=== PATIENT | female | born 1970 | race Caucasian/White ===

== ENCOUNTER 2020-08-15 07:24 | Outpatient (REF) | payer OTHER, SELFPAY ==
--- NOTE | 2020-08-15 07:29 | CT_ITS ---
EXAMINATION: CT CHEST WITHOUT CONTRAST CLINICAL INFORMATION: Abnormal lung finding. COMPARISON: No previous exam available for comparison. TECHNIQUE: Multidetector volumetric CT imaging of the chest was done. Axial MIP volume rendering provided. Sagittal and coronal reformatted images were obtained. This CT examination was performed using dose optimization techniques as appropriate, variously including the following: *Automated exposure control *Adjustment of mA and/or kV according to patient size (this includes techniques or standardized protocols for targeted exams where dose is matched to indication/reason for exam; i.e. extremities or head) *Use of iterative reconstruction technique DLP: 175 mGy-cm. FINDINGS: FURNACE TAPPER: Unremarkable. LUNGS: The lungs are well expanded and clear of acute pneumonic process. There are scattered pulmonary nodules. A 3 mm pulmonary nodule left upper lobe adjacent to the descending thoracic aorta on axial image 189/7, a 6 mm nodule right lower lobe superior segment image 323/7 and postsurgical changes along the right middle lobe, likely from wedge resection or lobectomy. MEDIASTINUM: The thyroid lobes are symmetrical and normal. The central trachea and bronchi are widely patent. The heart size and great vessels are normal caliber. There is no pericardial effusion. No abnormal mediastinal lymph nodes seen. There is no pleural effusion. PLEURA: There is no pleural effusion. No pleural mass or thickening. AXILLA: The axilla is unremarkable. There is a right breast prostheses in place. UPPER ABDOMEN: Visualized liver, spleen, pancreas and bilateral adrenal glands are unremarkable. OSSEOUS STRUCTURES: No lytic or sclerotic process seen. CT/CT chest wo IV con IMPRESSION: Small calcified bilateral pulmonary nodules as described above, most likely granulomas disease. No noncalcified nodules seen. Right middle lobe postsurgical changes. Right breast augmentation, likely following resection.
== END 2020-08-15 07:25 | disposition home or self-care (01) ==
LOC: HO.CT 07:24
PROVIDERS: Visit Provider Hospitalist
DX: R91.8 Other nonspecific abnormal finding of lung field (principal)
CPT/HCPCS: 71250

== ENCOUNTER → 2020-09-08 08:25 | Outpatient (BNVA) | payer OTHER, SELFPAY | PROVIDERS: PCP Internal Medicine; Referring Provider Internal Medicine; Visit Provider Hospitalist | DX: Z76.89 Persons encountering health services in other specified circumstances (principal) ==

== ENCOUNTER → 2021-08-30 09:55 | Outpatient (BNVA) | payer OTHER, SELFPAY | PROVIDERS: PCP Internal Medicine; Visit Provider Hospitalist ==

== ENCOUNTER 2021-09-13 07:29 | Outpatient (REF) | payer OTHER, SELFPAY ==
--- NOTE | ~2021-09-13 | CT_ITS ---
EXAMINATION: CT CHEST WITHOUT CONTRAST CLINICAL INFORMATION: Pulmonary nodules COMPARISON: Previous chest CT July 2020 TECHNIQUE: Multidetector volumetric CT imaging of the chest was done. Axial MIP volume rendering provided. Sagittal and coronal reformatted images were obtained. This CT examination was performed using dose optimization techniques as appropriate, variously including the following: *Automated exposure control *Adjustment of mA and/or kV according to patient size (this includes techniques or standardized protocols for targeted exams where dose is matched to indication/reason for exam; i.e. extremities or head) *Use of iterative reconstruction technique DLP: 178 mGy-cm FINDINGS: LUNGS: There are postsurgical changes with surgical max seen in the right middle lobe. There is a 3 mm calcified left upper lobe nodule adjacent to the resting aorta axial image 178 series 5 that is stable. There is a 6 mm calcified right lower lobe nodule axial image 331 series 5 that is stable. No new pulmonary nodule is seen. MEDIASTINUM: The mediastinum is normal. PLEURA: There is no pleural effusion. No pleural mass or thickening. AXILLA: There are no enlarged axillary lymph nodes. There are surgical clips in the right lateral breast and a right breast implant. UPPER ABDOMEN: There is cortical thinning and peripheral calcification in the medial upper pole of the right kidney. OSSEOUS STRUCTURES: Unremarkable. CT/CT chest wo IV con IMPRESSION: Stable postsurgical changes to the right middle lobe. Stable calcified pulmonary nodules probably representing calcified granulomas. Fleischner guidelines were followed.
== END 2021-09-13 07:30 | disposition home or self-care (01) ==
LOC: HO.CT 07:29
PROVIDERS: Visit Provider Hospitalist
DX: R07.89 Other chest pain (principal); R91.8 Other nonspecific abnormal finding of lung field; E86.9 Volume depletion, unspecified
CPT/HCPCS: 71250

== ENCOUNTER → 2021-10-17 08:15 | Outpatient (REF) | payer OTHER, SELFPAY ==
--- NOTE | 2021-10-17 08:20 | ECG_ITS ---
Test Reason : htn Blood Pressure : / mmHG Vent. Rate : 055 BPM Atrial Rate : 055 BPM P-R Int : 146 ms QRS Dur : 086 ms QT Int : 426 ms P-R-T Axes : 059 019 028 degrees QTc Int : 407 ms Sinus bradycardia Otherwise normal ECG No previous ECGs available Referred By: Edu Hunt Electronically Signed By:Balaji Mike
--- NOTE | 2021-10-17 08:20 | CA_ITS ---
Transthoracic Echocardiogram Patient (Last, First, Middle): June Tirado, Gender: Female Date of : 1970 Age: 51 Procedure Date: 10/17/2021 Procedure Type: Transthoracic Echocardiogram Location: OP Height: 170.18 cm Weight: 99.79 kg BSA: 2.11 m2 Heart Rate: bpm BP: 139 / 90 mmHg Driver Sales: MASSIEL Referring MD: Edu Hunt MD [place]: Daniel Mendoza MD Symptoms: I27.20 - Pulmonary hypertension, unspecified Study Quality: Technically Difficult/Contrast ECG Rhythm: Sinus Conclusions: - Essentially normal study Findings Procedure Information Contrast agent, definity, is being given per protocol without apparent complications. Left Ventricle Normal left ventricular size, thickness, and systolic function. The visually estimated ejection fraction is between 55-60%. Spectral Doppler is indicative of a normal filling pattern. Right Ventricle Normal right ventricular cavity size and systolic function. Atria Both atria are normal in size. Interatrial shunt cannot be excluded. Aortic Valve The aortic valve structure and function is likely normal. There is no aortic valve stenosis. There is no aortic valve regurgitation. Mitral Valve Likely normal mitral valve structure and function. There is trace mitral valve regurgitation. There is no mitral valve stenosis. Pulmonic Valve The pulmonic valve was not well visualized. Tricuspid Valve Likely normal tricuspid valve structure and function. There is trace tricuspid valve regurgitation. The right ventricular systolic pressure is normal. The right ventricular systolic pressure is 23 mmHg. Normal right atrial pressure. There is no evidence of pulmonary hypertension. Great Vessels All visible segments of the aorta are normal in size. The pulmonary artery was not well visualized. Venous The inferior vena cava is normal in size and collapses greater than 50% with inspiration. Pericardium/Pleural There is no evidence of pericardial effusion. Prior Study Comparison No prior study available for comparison. Measurements 2D Linear Measurements IVSd: 0.73 0.6-0.9/0.6-1.0 cm LVIDd: 5.23 3.9-5.3/4.2-5.9 cm LVIDd Index: 2.48 2.4-3.2/2.2-3.1 cm/m2 LVIDs: 3.47 2.0-3.6 cm LVPWd: 0.72 0.7-1.1 cm Ao Root: 3.10 2.1-3.5 cm LA Diam: 4.10 2.7-3.8/3.0-4.0 cm LAIDs Index: 1.94 1.5-2.3 cm/m2 LV Mass: 160.94 67-162/88-224 g LV Mass Index: 76.28 43-95/49-115 g/m2 LVOT Diam: 2.00 3.0+(-)1.3 cm Mitral Valve MV Pk E: 0.59 MV PK A: 0.61 MV Decel Time: 301.00 E/A: 1.00 E'Lateral: 11.60 E'Medial: 7.07 E/E' Med: 8.40 E/E' Lat: 5.10 PHT: 88.00 MVA PHT: 2.50 Decel Sullivan: 1.97 Aortic Valve AoV Pk Deejay: 1.45 AoV Mn Deejay: 1.07 AoV VTI: 0.31 AoV Pk Grad: 8.00 Aov Mn Grad: 5.00 WYATT Cont.VTI: 2.18 LVOT LVOT Pk Deejay: 1.04 LVOT Mn Deejay: 0.67 LVOT VTI: 0.22 LVOT Pk Grad: 4.00 LVOT Mn Grad: 2.00 LVOT Diam: 2.00 LVOT Area: 3.14 Diastolic Function MV Pk E: 0.59 MV Pk A: 0.61 E/A: 1.00 E'Medial: 7.07 E/E' Med: 8.40 E' Laterial: 11.60 E/E' Lat: 5.10 Right Ventricle TAPSE (mm): 17.40 TVS' Deejay: 10.10 Tricuspid Valve TR Pk Deejay: 1.93 TR Pk Grad: 15.00 RA Press: 8.00 RVSP: 23.00 Great Vessels Aorta Ao Root-2D: 3.10 2.0-3.7 cm Ao Asc: 3.00 2.1-3.4 cm Ao Arch: 2.90 Updated in Other Vendor System with Status of Final Daniel Mendoza MD electronically signed on 10/17/2021 5:28:21 PM with status of Final
== END ==
LOC: HO.CARD 08:15
PROVIDERS: Visit Provider Hospitalist
DX: R07.89 Other chest pain (principal); I27.20 Pulmonary hypertension, unspecified; R06.00 Dyspnea, unspecified
CPT/HCPCS: 93005; 93306; Q9957

== ENCOUNTER 2022-02-23 15:17 | Outpatient (REF) | payer OTHER, SELFPAY ==
--- NOTE | ~2022-02-23 | CT_ITS ---
EXAMINATION: CT CHEST WITHOUT CONTRAST CLINICAL INFORMATION: Follow-up nodules. COMPARISON: Pre chest CT, most recent 09/10. TECHNIQUE: Multidetector volumetric CT imaging of the chest was done. Axial MIP volume rendering provided. Sagittal and coronal reformatted images were obtained. This CT examination was performed using dose optimization techniques as appropriate, variously including the following: *Automated exposure control *Adjustment of mA and/or kV according to patient size (this includes techniques or standardized protocols for targeted exams where dose is matched to indication/reason for exam; i.e. extremities or head) *Use of iterative reconstruction technique DLP: 181 mGy-cm. FINDINGS: LUNGS: There are stable postsurgical changes to the right middle lobe. There is soft tissue thickening along the surgical suture line that is stable. Small pulmonary nodules are stable. Largest pulmonary nodule is a 5 mm calcified right lower lobe nodule axial image 36 series 3. No new pulmonary nodules are seen. There is a small lung cysts in the right lower lobe. No endobronchial or endotracheal lesion is seen. MEDIASTINUM: The thyroid gland is normal. There are no enlarged hilar or mediastinal lymph nodes. The heart size is normal. Aortic size is normal. No pericardial effusion. PLEURA: There is no pleural effusion. No pleural mass or thickening. AXILLA: There is a right breast implant. No chest wall mass or enlarged axillary lymph nodes are seen. UPPER ABDOMEN: There is a small calcification in the peripheral upper pole of the right kidney. Images through the upper abdomen are otherwise unremarkable. OSSEOUS STRUCTURES: There are mild degenerative changes of the spine. CT/CT chest wo IV con IMPRESSION: Stable post surgical change RML. Stable pulmonary nodules. Fleischner guidelines were followed.
== END 2022-02-23 15:18 | disposition home or self-care (01) ==
LOC: HO.CT 15:17
PROVIDERS: PCP Internal Medicine; Visit Provider Hospitalist
DX: R07.89 Other chest pain (principal); R91.8 Other nonspecific abnormal finding of lung field
CPT/HCPCS: 71250

== ENCOUNTER → 2022-02-26 15:49 | Outpatient (BNVA) | payer OTHER, SELFPAY | PROVIDERS: PCP Internal Medicine; Visit Provider Hospitalist | DX: R07.89 Other chest pain (principal); R91.8 Other nonspecific abnormal finding of lung field; D86.9 Sarcoidosis, unspecified; I27.20 Pulmonary hypertension, unspecified ==

== ENCOUNTER 2023-08-01 10:51 | Outpatient (AMB) | payer OTHER, SELFPAY ==
--- NOTE | 2023-08-01 11:03 | A.OFFVIS_ITS ---
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 She is now cancer free. She was diagnosed with breast cancer is status post surgery and now is recovering very well from her surgeries. She is not using hormonal therapy. She has had history of blood clots. She did have symptoms consistent with sleep apnea. Therefore we had o rdered a sleep study. This sleep study was very limited unfortunately because malfunction device. Also the strap was bothering her recent surgery of her breast. So therefore there was also affecting her sleep. Therefore the sleep study was not helpful. At this point she is feeling better. She is not feeling as tired in the morning. She still snoring at night time. However. We did talk about positional changes sleeping elevated receiving her side. She can also try rinsing her nose at night time. The patient does have symptoms consistent with upper airway nasal congestion. [id number] severity. Resulting in a cough. Only mild. Does not require medications at this time. She is currently getting allergy shots. In regard of her pulmonary nodules. Her last CT scan of the chest to assess the pulmonary nodules and granulomas was back in August 2018. She is time to be scheduled now for a CAT scan August 2019. . We did review her CT scan demonstrating the pulmonary nodules from 2018. She should get another CT scan in August 2020. Patient also describes some congestion in her right lower lung zone area. Primary when she lays flat. Denies any reflux symptoms. She does have a wedge pillow that she had using the past but stopped using because was bothering her. She will re-attempt to use it all may be having breaks to elevate the head of bed to minimize micro aspirations that can lead to some congestion irritation to the right lower lobe area. Will do some blood work at this time. The patient should have an x-ray if she is no better for the chest discomfort. If it symptoms persist an her laboratory data and x-ray data is not helpful we can consider performing the CT scan sooner than August 2020. 09/08/2020. The patient is here for pulmonary follow-up visit. Overall she is doing well from a respiratory status. She denies any coughing or shortness of breath. We did look at her CT scan of the chest demonstrating stable postoperative changes in bilateral calcified pulmonary nodules. Her major issue right now is significant pelvic discomfort. She is being worked up for it. 08/30/2021 the patient is here for pulmonary follow-up visit. Since we last spoke she has been complaining of increasing dyspnea on exertion. Today on the walk from the parking lot to the office she started developing some chest heaviness and burning sensation in the substernal chest area. In regards of her history of breast cancer the patient has continued to have serial imaging studies and she has been stable. Unfortunately, she was not able to use the hormonal therapy due to history of blood clots. We did review her last CT scan of the chest that was done back in August 2020. Patient does have multiple pulmonary nodules in addition to postoperative changes. The patient did have a biopsy-proven diagnosis of sarcoidosis. In view of her chest discomfort and shortness of breath also need to consider cardiac sarcoid. Therefore, will request additional blood work and will repeat her CT scan in view of her worsening symptoms And abnormal findings. The patient also has significant cardiovascular risk factors with hypertension and diabetes. Very reasonable for her to undergo a stress test. 02/27/2022 the patient is here for a pulmonary follow-up visit. Overall she is doing well from a respiratory status. However, she has been complaining of epigastric and also right upper quadrant discomfort. The discomfort seems to come and go. Typically not related to eating. The pain is about moderate severity. It does not radiate. Seems to be affecting her breathing and she does have the pain she was evaluated by her primary care doctor and recommended she start PPI. She has yet to start. I did encourage her to do so. She also underwent a CT scan of the chest to address her pulmonary nodules. It appears that the pulmonary nodules have been stable compared to her previous CT scan which is very reassuring. She also has stable surgical changes that also appeared to be stable. Her esophagus is intact in the stomach area is intact. Could not really appreciate the gallbladder because of the limited abdominal windows. The patient is high risk for gallbladder disease. Appears to be having colicky discomfort. If the patient does not improved on the reflux diet along with the PPI I did provide with some blood work for her to have done to assess her pancreas and also her liver function. 08/01/2023 the patient is here for a sick visit apparently she was in her usual state health until suddenly when she developed left upper quadrant / lower chest area pain. Seen to gravity to the side. The pain was significant enough to take her to the ER. Denied any shortness of breath although with a history of blood clots she did have blood work including a D-dimer that was negative. She also had a CT scan of the abdomen while she was in there. The patient appeared to have chronic lung changes in view of her surgery on the right side with some atelectatic areas and postsurgical changes. The left lower lobe area was intact. The patient did have what appeared to be hypodense lesions on the spleen. The spleen was not large. Was concerned that this could be metastatic disease. However, she was discharged and she did have an MRI of the liver and the hypodensities were confirmed to be benign cyst. The patient is reassured but she still has discomfort pruritic and nature when taking a deep breath. Rtsg-xh-vteurnkt severity. It seems to be getting a little better. She denied any other rashes or any musculoskeletal discomfort. She was concerned about potentially active sarcoid with a history. However, her lung windows have not changed the patient does not have any evidence of splenomegaly that usually results when somebody has extrapulmonary sarcoid in the spleen. She does have a GI doctor she does have follow-up in a couple weeks. Therefore, they can assess this discomfort further. In the meantime will going to request blood work to assess for connective tissue diseases that could explain pleuritic chest discomfort. since this discomfort has been getting better I encouraged her to continue with current medications. [facility] Medical History (Updated 08/01/23 @ 20:25 by Edu Hunt MD) Dyspnea Breast cancer Chest discomfort Sarcoidosis Pulmonary nodules Social History (Updated 08/30/21 @ 10:03 by JATIN Molina) Patient Tobacco Use Status: Former Tobacco user Tobacco use type: Cigarette Years Smoked: 10 years Review of Systems Const Denies fatigue, Denies malaise, Denies night sweats and Denies weight loss ENT Denies change in voice, Denies lip swelling, Denies mouth pain, Reports nasal congestion, Reports nasal discharge and Denies tongue swelling Card Reports chest pain, Reports chest pain with activity and Denies dyspnea on exer tion Resp Denies dyspnea on exertion GI Reports abdominal pain Musc Denies no additional complaints Neuro Denies Neuro-related abnormal movements Psych Denies no additional complaints Endo Denies fatigue Dae/Lymph Denies easy bleeding and Denies lymphadenopathy Aller/Immun Denies lip swelling and Denies tongue swelling Physical Exam Vital Signs: Last Vital Signs Pulse 68 08/01/23 11:07 BP 128/70 08/01/23 11:07 Pulse Ox 96 08/01/23 11:07 Oxygen Delivery Method Room Air 08/01/23 11:07 BMI result Body Mass Index 34.1 Const General: alert Neck Neck: Yes normal visual inspection, Yes full ROM and Yes no lymphadenopathy Chest Chest palpation & inspection: normal inspection of the chest Resp Auscultation: clear to auscultation bilaterally Cardio Rate: regular rate Rhythm: regular rhythm Heart sounds: S1 normal heart sound present and S2 normal heart sound present GI Palpation (GI): Soft to palpation, Tenderness to palpation present (GI) in the epigastrum and in the LUQ; not at McBurney's point, not periumbilically, M urphy's sign negative and with no rebound tenderness and no splenomegaly Auscultation: normal bowel sounds Skin General skin exam: rashes and/or lesions noted Assessment & Plan Assessment & Plan (1) Pulmonary nodules: Code(s): R91.8 - Other nonspecific abnormal finding of lung field Plan: Nodules are stable. Again calcified nodules more consistent with the history of sarcoidosis. (2) Sarcoidosis: Code(s): D86.9 - Sarcoidosis, unspecified Plan: No evidence of any active disease Should have yearly eye exams (3) Breast cancer: Code(s): C50.919 - Malignant neoplasm of unspecified site of unspecified female breast Qualifiers: Breast location: unspecified site of breast Estrogen receptor status: p ositive Patient sex: female Laterality: right Qualified Code(s): C50.911 - Malignant neoplasm of unspecified site of right female breast; Z17.0 - Estrogen receptor positive status [ER+] (4) Dyspnea: Code(s): R06.00 - Dyspnea, unspecified Qualifiers: Dyspnea type: dyspnea on exertion Qualified Code(s): R06.00 - Dyspnea, unspecified (5) LUQ pain: Code(s): R10.12 - Left upper quadrant pain Plan No evidence of active sarcoidosis F/U with GI regarding abdominal pain requesting labs including ddimer refluc diet consider PPI F/U 4-6 months Orders: Orders Complete Blood Count Auto Diff Today D86.9 - Sarcoidosis, unspecified, R06.00 - Dyspnea, unspecified, R07.89 - Other chest pain Basic Metabolic Panel Today D86.9 - Sarcoidosis, unspecified, R06.00 - Dyspnea, unspecified, R07.89 - Other chest pain Angiotensin Converting Enzyme Today D86.9 - Sarcoidosis, unspecified, R06.00 - Dyspnea, unspecified, R07.89 - Other chest pain D Dimer High Sensitivity Today D86.9 - Sarcoidosis, unspecified, R06.00 - Dyspnea, unspecified, R07.89 - Other chest pain Juancarlos-Sanon Virus Profile Today D86.9 - Sarcoidosis, unspecified, R06.00 - Dyspnea, unspecified, R07.89 - Other chest pain Cyclic Citrullinated Peptide Today D86.9 - Sarcoidosis, unspecified, R06.00 - Dyspnea, unspecified, R07.89 - Other chest pain T Spot TB Today D86.9 - Sarcoidosis, unspecified, R06.00 - Dyspnea, unspecified, R07.89 - Other chest pain WIL Reflex Titer and Pattern Today D86.9 - Sarcoidosis, unspecified, R06.00 - Dyspnea, unspecified, R07.89 - Other chest pain Erythrocyte Sedimentation Rate Today D86.9 - Sarcoidosis, unspecified, R06.00 - Dyspnea, unspecified, R07.89 - Other chest pain Coding Level of Care Code Est Pt Level 4 (77705) Diagnoses Pulmonary nodules R91.8 Sarcoidosis D86.9 Malignant neoplasm of right breast in female, estrogen receptor positive, unspecified site of breast C50.911; Z17.0 Breast location: unspecified site of breast Estrogen receptor status: positive Patient sex: female Laterality: right Dyspnea on exertion R06.00 Dyspnea type: dyspnea on exertion LUQ pain R10.12 Time Spent (min) 25
[2023-08-01 11:07] VITALS: BP 128/70; PULSE 68; O2SAT 96; BMI 34.1
== END 2023-08-01 11:56 | disposition home or self-care (01) ==
PROVIDERS: PCP Internal Medicine; Visit Provider Hospitalist
DX: R91.8 Other nonspecific abnormal finding of lung field (principal); D86.9 Sarcoidosis, unspecified; C50.911 Malignant neoplasm of unspecified site of right female breast; Z17.0 Estrogen receptor positive status [ER+]; R06.00 Dyspnea, unspecified; R10.12 Left upper quadrant pain
CPT/HCPCS: 99214

== ENCOUNTER → 2023-08-01 10:51 | Outpatient (BNVA) | payer OTHER, SELFPAY | PROVIDERS: PCP Internal Medicine; Visit Provider Hospitalist ==

== ENCOUNTER 2023-12-18 07:58 | Outpatient (REF) | payer OTHER, SELFPAY ==
--- NOTE | ~2023-12-18 | XR_ITS ---
EXAMINATION: XR CHEST CLINICAL INFORMATION: Dyspnea. COMPARISON: CT chest 02/23/2022. TECHNIQUE: 2 views of the chest were obtained. FINDINGS: Normal appearance of the cardiomediastinal silhouette. Redemonstration of postoperative changes in the right middle lobe. Mild central peribronchial cuffing. No focal consolidation or pleural effusion. No pulmonary edema. Subcentimeter pulmonary nodules described on prior CT are too small to be characterize by radiograph. No acute osseous findings. XR/XR chest 2V IMPRESSION: Findings suggest mild small airways disease without focal consolidation or pleural effusion.
== END 2023-12-18 07:59 | disposition home or self-care (01) ==
LOC: HO.XRAY 07:58
PROVIDERS: PCP Internal Medicine; Visit Provider Hospitalist
DX: R06.00 Dyspnea, unspecified (principal); R91.8 Other nonspecific abnormal finding of lung field
CPT/HCPCS: 71046

== ENCOUNTER 2023-12-18 07:58 | Outpatient (AMB) | payer OTHER, SELFPAY ==
[2023-12-18 08:31] VITALS: BP 128/78; PULSE 65; O2SAT 96; BMI 34.1
--- NOTE | 2023-12-18 08:31 | A.OFFVIS_ITS ---
Intake Vital Signs 12/18/23 08:31 Height 5 ft 7 in Weight 218 lb BMI 34.1 BP 128/78 Blood Pressure Location Lt brachial Position Sitting Pulse 65 Pulse Source Pulse Oximeter Pulse Oximetry (%) 96 Oxygen Delivery Method Room Air Intake Visit Reasons: Chest Xray/Follow Up Coin Box Inspector Required: No Allergies Sulfa Drugs Allergy (Severe, Uncoded 12/18/23 08:34) Rash HPI HPI Comments History of Present Illness Details The patient is a 53 y/o woman with a history of sarcoidosis in addition to pulmonary nodules and breat cancer. She is now cancer free. She was diagnosed with breast cancer is status post surgery and now is recovering very well from her surgeries. She is not using hormonal therapy. She has had history of blood clots. She did have symptoms consistent with sleep apnea. Therefore we had ordered a sleep study. This sleep study was very limited unfortunately because malfunction device. Also the strap was bothering her recent surgery of her breast. So therefore there was also affecting her sleep. Therefore the sleep study was not helpful. At this point she is feeling better. She is not feeling as tired in the morning. She still snoring at night time. However. We did talk about positional changes sleeping elevated receiving her side. She can also try rinsing her nose at night time. The patient does have symptoms consistent with upper airway nasal congestion. Ozmd-[id number] severity. Resulting in a cough. Only mild. Does not require medications at this time. She is currently getting allergy shots. In regard of her pulmonary nodules. Her last CT scan of the chest to assess the pulmonary nodules and granulomas was back in August 2018. She is time to be scheduled now for a CAT scan August 2019. . We did review her CT scan demonstrating the pulmonary nodules from 2017. She should get another CT scan in August 2020. Patient also describes some congestion in her right lower lung zone area. Primary when she lays flat. Denies any reflux symptoms. She does have a wedge pillow that she had using the past but stopped using because was bothering her. She will re-attempt to use it all may be having breaks to elevate the head of bed to minimize micro aspirations that can lead to some congestion irritation to the right lower lobe area. Will do some blood work at this time. The patient should have an x-ray if she is no better for the chest discomfort. If it symptoms persist an her laboratory data and x-ray data is not helpful we can consider performing the CT scan sooner than August 2020. 09/08/2020. The patient is here for pulmonary follow-up visit. Overall she is doing well from a respiratory status. She denies any coughing or shortness of breath. We did look at her CT scan of the chest demonstrating stable postoperative changes in bilateral calcified pulmonary nodules. Her major issue right now is significant pelvic discomfort. She is being worked up for it. 08/30/2021 the patient is here for pulmonary follow-up visit. Since we last spoke she has been complaining of increasing dyspnea on exertion. Today on the walk from the parking lot to the office she started developing some chest heaviness and burning sensation in the substernal chest area. In regards of her history of breast cancer the patient has continued to have serial imaging studies and she has been stable. Unfortunately, she was not able to use the hormonal therapy due to history of blood clots. We did review her last CT scan of the chest that was done back in August 2020. Patient does have multiple pulmonary nodules in addition to postoperative changes. The patient did have a biopsy-proven diagnosis of sarcoidosis. In view of her chest discomfort and shortness of breath also need to consider cardiac sarcoid. Therefore, will request additional blood work and will repeat her CT scan in view of her worsening symptoms And abnormal findings. The patient also has significant cardiovascular risk factors with hypertension and diabetes. Very reasonable for her to undergo a stress test. 02/27/2022 the patient is here for a pulmonary follow-up visit. Overall she is doing well from a respiratory status. However, she has been complaining of epigastric and also right upper quadrant discomfort. The discomfort seems to come and go. Typically not related to eating. The pain is about moderate severity. It does not radiate. Seems to be affecting her breathing and she does have the pain she was evaluated by her primary care doctor and recommended she start PPI. She has yet to start. I did encourage her to do so. She also underwent a CT scan of the chest to address her pulmonary nodules. It appears that the pulmonary nodules have been stable compared to her previous CT scan which is very reassuring. She also has stable surgical changes that also appeared to be stable. Her esophagus is intact in the stomach area is intact. Could not really appreciate the gallbladder because of the limited abdominal windows. The patient is high risk for gallbladder disease. Appears to be having colicky discomfort. If the patient does not improved on the reflux diet along with the PPI I did provide with some blood work for her to have done to assess her pancreas and also her liver function. 08/01/2023 the patient is here for a sick visit apparently she was in her usual state health until suddenly when she developed left upper quadrant / lower chest area pain. Seen to gravity to the side. The pain was significant enough to take her to the ER. Denied any shortness of breath although with a history of blood clots she did have blood work including a D-dimer that was negative. She also had a CT scan of the abdomen while she was in there. The patient appeared to have chronic lung changes in view of her surgery on the right side with some atelectatic areas and postsurgical changes. The left lower lobe area was intact. The patient did have what appeared to be hypodense lesions on the spleen. The spleen was not large. Was concerned that this could be metastatic disease. However, she was discharged and she did have an MRI of the liver and the hypodensities were confirmed to be benign cyst. The patient is reassured but she still has discomfort pruritic and nature when taking a deep breath. Lnkp-vs-[id number] severity. It seems to be getting a little better. She denied any other rashes or any musculoskeletal discomfort. She was concerned about potentially active sarcoid with a history. However, her lung windows have not changed the patient does not have any evidence of splenomegaly that usually results when somebody has extrapulmonary sarcoid in the spleen. She does have a GI doctor she does have follow-up in a couple weeks. Therefore, they can assess this discomfort further. In the meantime will going to request blood work to assess for connective tissue diseases that could explain pleuritic chest discomfort. since this discomfort has been getting better I encouraged her to continue with current medications. 12/18/2023 the patient is here for a pulmonary follow-up visit. The patient overall has been doing okay. Continues to have some chest pressure sensations in addition to cough and shortness of breath. Oaqp-em-yqlotlgj severity. She did have a chest x-ray today without any significant findings. Her last CT scan of the chest was back in February 2022 demonstrating multiple pulmonary nodules. The patient does have a history sarcoidosis and also history of breast cancer. More recently she did undergo an MRI to further address the new splenic cyst. Explained to the patient that I not believe that the cysts are related to any sarcoid. Could be related to the potential mononucleosis infection that she had. This point based on her ongoing symptoms, nondi agnostic chest x-ray and history of cancer go ahead and repeat her CT scan at this time. also to note, the patient is having worsening snorring. Her is having to sleep elsewhere. She has significant daytime drowsiness with EPWORTH score 11/24. We will reques a home sleep study at this time. [facility] Medical History (Updated 12/18/23 @ 18:24 by Edu Hunt MD) Splenic cyst, acquired Dyspnea Breast cancer Chest discomfort Sarcoidosis Pulmonary nodules Social History (System 08/06/23 @ 13:54 by Angela Burch) Patient Tobacco Use Status: Former Tobacco user Tobacco use type: Cigarette Years Smoked: 10 years Review of Systems Const Reports daytime sleepiness, Denies fatigue, Denies malaise, Denies night sweats, Reports snoring and Denies weight loss ENT Denies change in voice, Denies lip swelling, Denies mouth pain, Reports nasal congestion, Reports nasal discharge and Denies tongue swelling Card Reports chest pain, Reports chest pain with activity and Reports dyspnea on exertion Resp Reports cough, Reports dyspnea on exertion and Reports snoring GI Denies abdominal pain Musc Denies no additional complaints Neuro Denies Neuro-related abnormal movements Psych Denies no additional complaints Endo Denies fatigue Dae/Lymph Denies easy bleeding and Denies lymphadenopathy Aller/Immun Denies lip swelling and Denies tongue swelling Physical Exam Vital Signs: Last Vital Signs Pulse 65 12/18/23 08:31 BP 128/78 12/18/23 08:31 Pulse Ox 96 12/18/23 08:31 Oxygen Delivery Method Room Air 12/18/23 08:31 BMI result Body Mass Index 34.1 Const General: alert Neck Neck: Yes normal visual inspection, Yes full ROM and Yes no lymphadenopathy Chest Chest palpation & inspection: normal inspection of the chest Resp Effort & Inspection: normal respiratory effort Auscultation: clear to auscultation bilaterally Cardio Rate: regular rate Rhythm: regular rhythm Heart sounds: S1 normal heart sound present and S2 normal heart sound present GI Palpation (GI): Soft to palpation Auscultation: normal bowel sounds Skin General skin exam: rashes and/or lesions noted Assessment & Plan Assessment & Plan (1) Pulmonary nodules: Code(s): R91.8 - Other nonspecific abnormal finding of lung field Plan: Nodules are stable. Again calcified nodules more consistent with the history of sarcoidosis. (2) Sarcoidosis: Code(s): D86.9 - Sarcoidosis, unspecified Plan: No evidence of any active disease Should have yearly eye exams (3) Breast cancer: Code(s): C50.919 - Malignant neoplasm of unspecified site of unspecified female breast (4) Dyspnea: Code(s): R06.00 - Dyspnea, unspecified (5) Splenic cyst, acquired: Comment: ?related to mononucleosis. Code(s): D73.4 - Cyst of spleen (6) ADRIENNE (obstructive sleep apnea): Code(s): G47.33 - Obstructive sleep apnea (adult) (pediatric) (7) Chest discomfort: Code(s): R07.89 - Other chest pain (8) Dyspnea: Code(s): R06.00 - Dyspnea, unspecified Qualifiers: Dyspnea type: dyspnea on exertion Qualified Code(s): R06.00 - Dyspnea, unspecified (9) Pulmonary nodules: Code(s): R91.8 - Other nonspecific abnormal finding of lung field Plan CT chest at this time, CXR non diagnostic. Has symptoms and h/o cancer and pulmonary nodules. Home PSG F/U 3-4 months Orders: Orders RT home sleep study Today G47.33 - Obstructive sleep apnea (adult) (pediatric) CT chest wo IV con Today C50.919 - Malignant neoplasm of unspecified site of unspecified female breast, R07.89 - Other chest pain, R91.8 - Other nonspecific abnormal finding of lung field Coding Level of Care Code Est Pt Level 4 (43165) Diagnoses Pulmonary nodules R91.8 Sarcoidosis D86.9 Breast cancer C50.919 Dyspnea R06.00 Splenic cyst, acquired D73.4 ADRIENNE (obstructive sleep apnea) G47.33 Chest discomfort R07.89 Time Spent (min) 18
== END 2023-12-18 09:00 | disposition home or self-care (01) ==
PROVIDERS: PCP Internal Medicine; Visit Provider Hospitalist
DX: R91.8 Other nonspecific abnormal finding of lung field (principal); D86.9 Sarcoidosis, unspecified; C50.919 Malignant neoplasm of unspecified site of unspecified female breast; R06.00 Dyspnea, unspecified; D73.4 Cyst of spleen; G47.33 Obstructive sleep apnea (adult) (pediatric); R07.89 Other chest pain
CPT/HCPCS: 99214

== ENCOUNTER → 2024-02-20 09:02 | Outpatient (REF) | payer OTHER, SELFPAY | LOC: HO.SL 09:02 | PROVIDERS: PCP Internal Medicine; Visit Provider Hospitalist | DX: G47.33 Obstructive sleep apnea (adult) (pediatric) (principal) | CPT/HCPCS: 95806 ==

== ENCOUNTER → 2024-02-20 09:08 | Outpatient (BNV) | payer OTHER, SELFPAY | PROVIDERS: PCP Internal Medicine; Visit Provider Internal Medicine | DX: G47.33 Obstructive sleep apnea (adult) (pediatric) (principal) | CPT/HCPCS: 95806 ==

== ENCOUNTER 2024-03-18 08:45 | Outpatient (AMB) | payer OTHER, SELFPAY ==
[2024-03-18 08:46] VITALS: BP 137/84; PULSE 77; O2SAT 98; BMI 35.6
--- NOTE | 2024-03-18 08:46 | A.OFFVIS_ITS ---
Vital Signs 03/18/24 08:46 Height 5 ft 7 in Weight 227 lb 1.218 oz BMI 35.6 BP 137/84 Blood Pressure Location Lt brachial Position Sitting Pulse 77 Pulse Source Doppler Pulse Oximetry (%) 98 Oxygen Delivery Method Room Air Intake Visit Reasons: Dyspnea Allergies Sulfa Drugs Allergy (Severe, Uncoded 12/18/23 08:34) Rash HPI Comments Details: The patient is a 54 y/o woman with a history of sarcoidosis in addition to pulmonary nodules and breat cancer. She is now cancer free. She was diagnosed with breast cancer is status post surgery and now is recovering very well from her surgeries. She is not using hormonal therapy. She has had history of blood clots. She did have symptoms consistent with sleep apnea. Therefore we had ordered a sleep study. This sleep study was very limited unfortunately because malfunction device. Also the strap was bothering her recent surgery of her breast. So therefore there was also affecting her sleep. Therefore the sleep study was not helpful. At this point she is feeling better. She is not feeling as tired in the morning. She still snoring at night time. However. We did talk about positional changes sleeping elevated receiving her side. She can also try rinsing her nose at night time. The patient does have symptoms consistent with upper airway nasal congestion. Hpen-rf-sazqfkag severity. Resulting in a cough. Only mild. Does not require medications at this time. She is currently getting allergy shots. In regard of her pulmonary nodules. Her last CT scan of the chest to assess the pulmonary nodules and granulomas was back in August 2018. She is time to be scheduled now for a CAT scan August 2019. . We did review her CT scan demonstrating the pulmonary nodules from 2017. She should get another CT scan in August 2020. Patient also describes some congestion in her right lower lung zone area. Primary when she lays flat. Denies any reflux symptoms. She does have a wedge pillow that she had using the past but stopped using because was bothering her. She will re-attempt to use it all may be having breaks to elevate the head of bed to minimize micro aspirations that can lead to some congestion irritation to the right lower lobe area. Will do some blood work at this time. The patient should have an x-ray if she is no better for the chest discomfort. If it symptoms persist an her laboratory data and x-ray data is not helpful we can consider performing the CT scan sooner than August 2020. 12/18/2023 the patient is here for a pulmonary follow-up visit. The patient overall has been doing okay. Continues to have some chest pressure sensations in addition to cough and shortness of breath. Xrfl-rd-[id number] severity. She did have a chest x-ray today without any significant findings. Her last CT scan of the chest was back in February 2022 demonstrating multiple pulmonary nodules. The patient does have a history sarcoidosis and also history of breast cancer. More recently she did undergo an MRI to further address the new splenic cyst. Explained to the patient that I not believe that the cysts are related to any sarcoid. Could be related to the potential mononucleosis infection that she had. This point based on her ongoing symptoms, nondiagnostic chest x-ray and history of cancer go ahead and repeat her CT scan at this time. also to note, the patient is having worsening snorring. Her is having to sleep elsewhere. She has significant daytime drowsiness with EPWORTH score 11/24. We will reques a home sleep study at this time. 03/18/2024 the patient is here for a pulmonary follow-up visit. The patient overall has been doing fairly well from a respiratory status. She does continue to have snoring. Her does complain about her snoring. She did have a home sleep study which we personally reviewed. Her AHI is 5 and is mainly when she lays on her back. We did talk about positional therapy at this time. The patient may also benefit from an oral mandibular device to help with snoring. She also had a CT scan of the chest which we personally reviewed from [facility]. Looks like the patient has stable nodular densities and postoperative changes consistent with her old sarcoid. No evidence of any sarcoid activity. She still has the lesions in the spleen that are still being evaluated. She is following closely with GI. Does not appear to be related to sarcoidosis at this time. The patient is having significant weight gain which she has concerned about an upset about. Mainly because she has severe back pain. She is seen multiple specialists although has not been able to get some relief. Will go ahead and send her to our pain management clinic to see if she can be re-evaluated. [facility] Medical History (Updated 03/18/24 @ 21:28 by Edu Hunt MD) Back pain Splenic cyst, acquired Dyspnea Breast cancer Chest discomfort Sarcoidosis Pulmonary nodules Social History Patient Tobacco Use Status: Former Tobacco user Tobacco use type: Cigarette Years Smoked: 10 years Review of Systems Const Reports daytime sleepiness, Denies fatigue, Denies malaise, Denies night sweats, Reports snoring and Denies weight loss ENT Denies change in voice, Denies lip swelling, Denies mouth pain, Reports nasal congestion, Reports nasal discharge and Denies tongue swelling Card Reports chest pain, Reports chest pain with activity and Reports dyspnea on exertion Resp Reports cough, Reports dyspnea on exertion and Reports snoring GI Denies abdominal pain Musc Denies no additional complaints Neuro Denies Neuro-related abnormal movements Psych Denies no additional complaints Endo Denies fatigue Dae/Lymph Denies easy bleeding and Denies lymphadenopathy Aller/Immun Denies lip swelling and Denies tongue swelling Physical Exam Vital Signs: Last Vital Signs Pulse 77 03/18/24 08:46 BP 137/84 03/18/24 08:46 Pulse Ox 98 03/18/24 08:46 Oxygen Delivery Method Room Air 03/18/24 08:46 BMI result Body Mass Index 35.6 Const General: alert Neck Neck: Yes normal visual inspection, Yes full ROM and Yes no lymphadenopathy Chest Chest palpation & inspection: normal inspection of the chest Resp Effort & Inspection: normal respiratory effort Auscultation: clear to auscultation bilaterally Cardio Rate: regular rate Rhythm: regular rhythm Heart sounds: S1 normal heart sound present and S2 normal heart sound present GI Palpation (GI): Soft to palpation Auscultation: normal bowel sounds Skin General skin exam: rashes and/or lesions noted Assessment & Plan Assessment & Plan (1) Sarcoidosis: Comment: No evidence of active disease Code(s): D86.9 - Sarcoidosis, unspecified Category: Medical (2) ADRIENNE (obstructive sleep apnea): Comment: mild AHI 5 Code(s): G47.33 - Obstructive sleep apnea (adult) (pediatric) Category: Medical (3) Back pain: Code(s): M54.9 - Dorsalgia, unspecified Category: Medical Qualifiers: Back pain location: back pain in unspecified location Chronicity: chronic Back pain laterality: unspecified Qualified Code(s): M54.9 - Dorsalgia, unspecified; G89.29 - Other chronic pain (4) Splenic cyst, acquired: Comment: ?related to mononucleosis. Code(s): D73.4 - Cyst of spleen Category: Medical Plan positional sleep therapy consider mandibular device for worsening snorring pain referral, limited by her back pain F/U 10-12 months Orders: Referrals Pain Management Referral M54.9 - Dorsalgia, unspecified Coding Level of Care Code Est Pt Level 4 (69850) Diagnoses Sarcoidosis D86.9 ADRIENNE (obstructive sleep apnea) G47.33 Chronic back pain, unspecified back location, unspecified back pain laterality M54.9; G89.29 Back pain location: back pain in unspecified location Chronicity: chronic Back pain laterality: unspecified Splenic cyst, acquired D73.4 Time Spent (min) 17
== END 2024-03-18 09:16 | disposition home or self-care (01) ==
PROVIDERS: PCP Internal Medicine; Visit Provider Hospitalist
DX: D86.9 Sarcoidosis, unspecified (principal); G47.33 Obstructive sleep apnea (adult) (pediatric); M54.9 Dorsalgia, unspecified; G89.29 Other chronic pain; D73.4 Cyst of spleen
CPT/HCPCS: 99214

== ENCOUNTER → 2024-03-18 08:45 | Outpatient (BNVA) | payer OTHER, SELFPAY | PROVIDERS: PCP Internal Medicine; Visit Provider Hospitalist | DX: G47.33 Obstructive sleep apnea (adult) (pediatric) (principal) ==

== ENCOUNTER 2024-03-30 08:08 | Outpatient (AMB) | payer OTHER, SELFPAY ==
--- NOTE | 2024-03-30 08:09 | MHC.OFFVIS ---
Vital Signs 03/30/24 08:11 Height 5 ft 7 in Weight 227 lb BMI 35.5 BP 128/82 Blood Pressure Location Lt brachial Position Sitting Respiration 14 Pulse 75 Pulse Source Pulse Oximeter Pulse Oximetry (%) 97 Oxygen Delivery Method Room Air Intake Visit Reasons: back pain Allergies Sulfa Drugs Allergy (Severe, Uncoded 03/30/24 08:12) Rash Medication List - Last Reconciled 03/30/24 by Dolly Schmitt LPN losartan 25 mg PO DAILY sitagliptin phosphate (Januvia) 25 mg PO DAILY valacyclovir mg PO HPI HPI back pain: Details: 54-year-old female presenting with low back pain for evaluation and management, referred to us by Dr. Hunt. Patient reports she has had low back pain for about 4 years now which has been progressively worsening. Several years ago she had a fall and she landed on her coccyx which left her with tailbone pain. At the time she underwent an MRI of her tailbone and an evaluation with Dr. Smith at [facility] who deemed her a nonsurgical for tailbone pain. Over the years her pain has progressed from the tailbone area upwards towards her lumbar spine. It is not described as an aching stabbing low back pain that limits her from daily activities. It is described as 8 to 10/10 in intensity, variable over the course of the day, but worse with movements. Heat, cold applications make it feel better as to oral medications. She is unable to sleep normally or do her daily activities. She has not been able to continue with her usual exercise routine and walks, which has resulted in significant weight gain over the past 1 year, which has in turn worsened her back pain and made her mood worse. She is also unable to tolerate long drives. 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 She has completed more than 30 sessions of formal physical therapy, the last 1 at [facility] last year. She has not undergone any imaging of her lumbar spine. She takes ibuprofen as needed as well as extra-strength Tylenol. Medical history is notable for breast cancer status post mastectomy and sarcoidosis. [facility] Medical History (Updated 03/18/24 @ 21:28 by Edu Hunt MD) Back pain Splenic cyst, acquired Dyspnea Breast cancer Chest discomfort Sarcoidosis Pulmonary nodules Social History (Reviewed 03/18/24 @ 08:51 by HENOK Mckeon Patient Tobacco Use Status: Former Tobacco user Tobacco use type: Cigarette Years Smoked: 10 years Physical Exam Vital Signs: Last Vital Signs Pulse 75 03/30/24 08:11 Resp 14 03/30/24 08:11 BP 128/82 03/30/24 08:11 Pulse Ox 97 03/30/24 08:11 Oxygen Delivery Method Room Air 03/30/24 08:11 BMI result Body Mass Index 35.5 On exam today: Appears afebrile. Alert and oriented. Mood and affect appropriate. Follows and participates in conversation appropriately. Respiratory effort is unlabored. Able to transition from sit to stand unassisted. Ambulates with bilaterally normal heel strike and toe off. Able to stand and walk on toes and heels. Lumbar range of motion is limited. Lumbar extension reproduces pain in the lower back. Facet loading is positive bilaterally. Anterior column loading reproduces discomfort in the lumbar spine. Results Reviewed Results Reviewed: No imaging is available for review today. Assessment & Plan Assessment & Plan (1) Back pain: Code(s): M54.9 - Dorsalgia, unspecified Category: Medical Qualifiers: Back pain laterality: unspecified Back pain location: back pain in unspecified location Chronicity: chronic Qualified Code(s): M54.9 - Dorsalgia, unspecified; G89.29 - Other chronic pain Plan Patient has had longstanding low back pain that has not responded to conservative measures including extensive physical therapy and oral acetaminophen and NSAIDs. I will send her for an MRI of the lumbar spine. She will return to clinic to review the MRI. We will consider interventions based on MRI results and her physical exam at the time. Differential diagnosis at this time includes lumbar spondylosis and vertebral endplate degeneration associated with lumbar disc degeneration. Orders: Orders MR lumbar spine wo con Today G89.29 - Other chronic pain, M54.9 - Dorsalgia, unspecified Coding Level of Care Code New Pt Level 4 (47563) Diagnoses Chronic back pain, unspecified back location, unspecified back pain laterality M54.9; G89.29 Back pain laterality: unspecified Back pain location: back pain in unspecified location Chronicity: chronic
[2024-03-30 08:11] VITALS: BP 128/82; PULSE 75; RESP 14; O2SAT 97; BMI 35.5
== END 2024-03-30 08:54 | disposition home or self-care (01) ==
LOC: HO.PMC 08:08
PROVIDERS: PCP Internal Medicine; Visit Provider Internal Medicine
DX: M54.9 Dorsalgia, unspecified (principal); G89.29 Other chronic pain
CPT/HCPCS: 99203

== ENCOUNTER → 2024-03-30 08:08 | Outpatient (BNVA) | payer OTHER, SELFPAY | PROVIDERS: PCP Internal Medicine; Visit Provider Internal Medicine ==

== ENCOUNTER 2024-04-17 10:30 | Outpatient (AMB) | payer OTHER, SELFPAY ==
--- NOTE | 2024-04-17 10:45 | MHC.OFFVIS ---
Intake Visit Reasons: Discuss MRI Results Allergies Sulfa Drugs Allergy (Severe, Uncoded 03/30/24 08:12) Rash HPI HPI Discuss MRI Results: Details: 54-year-old female who presents today to the office for a review of MRI scan result. She continues to have similar symptoms as before. [facility] Medical History (Updated 04/20/24 @ 09:07 by Grady Posada MD) Back pain Splenic cyst, acquired Dyspnea Breast cancer Chest discomfort Sarcoidosis Pulmonary nodules Social History Patient Tobacco Use Status: Former Tobacco user Tobacco use type: Cigarette Years Smoked: 10 years Review of Systems Const All systems reviewed & are unremarkable except as noted in HPI and below Physical Exam General: Appears afebrile. Alert and oriented. Mood and affect appropriate. Follows and participates in conversation appropriately. Respiratory effort is unlabored. Able to transition from sit to stand unassisted. Ambulates with bilaterally normal heel strike and toe off. Results Reviewed Results Reviewed: Assessment & Plan Assessment & Plan (1) Vertebrogenic low back pain: Code(s): M54.51 - Vertebrogenic low back pain Category: Medical Plan Modic changes at L5-S1 along with positive findings of pain with anterior column loading indicate a likely vertebrogenic source of her longstanding symptoms that have not responded to conservative measures including extensive physical therapy and oral anti-inflammatory medications. Recommend proceeding with basivertebral nerve ablation at L5 and S1 levels under general anesthesia. Justification for interventional therapy: Patient with average pain > 6/10 Patient has exhausted conservative therapy including physical therapy and oral medications. Scribed for Dr. Posada by Lee De Jesus medical insurance collector, on 04/17/2024. I, Dr. Posada, have personally reviewed and agree with the information entered by the scribe. Coding Level of Care Code Est Pt Level 4 (13580) Diagnoses Vertebrogenic low back pain M54.51
== END 2024-04-17 10:45 | disposition home or self-care (01) ==
PROVIDERS: PCP Internal Medicine; Visit Provider Internal Medicine
DX: M54.51 Vertebrogenic low back pain (principal)
CPT/HCPCS: 99214

== ENCOUNTER → 2024-04-17 10:30 | Outpatient (BNVA) | payer OTHER, SELFPAY | PROVIDERS: PCP Internal Medicine; Visit Provider Internal Medicine ==

== ENCOUNTER 2025-02-22 15:32 | Outpatient (AMB) | payer OTHER, SELFPAY ==
--- NOTE | 2025-02-22 15:33 | MHC.OFFVIS ---
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 She is now cancer free. She was diagnosed with breast cancer is status post surgery and now is recovering very well from her surgeries. She is not using hormonal therapy. She has had history of blood clots. She did have symptoms consistent with sleep apnea. Therefore we had ordered a sleep study. This sleep study was very limited unfortunately because malfunction device. Also the strap was bothering her recent surgery of her breast. So therefore there was also affecting her sleep. Therefore the sleep study was not helpful. At this point she is feeling better. She is not feeling as tired in the morning. She still snoring at night time. However. We did talk about positional changes sleeping elevated receiving her side. She can also try rinsing her nose at night time. The patient does have symptoms consistent with upper airway nasal congestion. [id number] severity. Resulting in a cough. Only mild. Does not require medications at this time. She is currently getting allergy shots. In regard of her pulmonary nodules. Her last CT scan of the chest to assess the pulmonary nodules and granulomas was back in August 2018. She is time to be scheduled now for a CAT scan August 2019. . We did review her CT scan demonstrating the pulmonary nodules from 2018. She should get another CT scan in August 2020. Patient also describes some congestion in her right lower lung zone area. Primary when she lays flat. Denies any reflux symptoms. She does have a wedge pillow that she had using the past but stopped using because was bothering her. She will re-attempt to use it all may be having breaks to elevate the head of bed to minimize micro aspirations that can lead to some congestion irritation to the right lower lobe area. Will do some blood work at this time. The patient should have an x-ray if she is no better for the chest discomfort. If it symptoms persist an her laboratory data and x-ray data is not helpful we can consider performing the CT scan sooner than August 2020. 12/18/2023 the patient is here for a pulmonary follow-up visit. The patient overall has been doing okay. Continues to have some chest pressure sensations in addition to cough and shortness of breath. [id number]-[id number] severity. She did have a chest x-ray today without any significant findings. Her last CT scan of the chest was back in February 2022 demonstrating multiple pulmonary nodules. The patient does have a history sarcoidosis and also history of breast cancer. More recently she did undergo an MRI to further address the new splenic cyst. Explained to the patient that I not believe that the cysts are related to any sarcoid. Could be related to the potential mononucleosis infection that she had. This point based on her ongoing symptoms, nondiagnostic chest x-ray and history of cancer go ahead and repeat her CT scan at this time. also to note, the patient is having worsening snorring. Her is having to sleep elsewhere. She has significant daytime drowsiness with EPWORTH score 11/24. We will reques a home sleep study at this time. 03/18/2024 the patient is here for a pulmonary follow-up visit. The patient overall has been doing fairly well from a respiratory status. She does continue to have snoring. Her does complain about her snoring. She did have a home sleep study which we personally reviewed. Her AHI is 5 and is mainly when she lays on her back. We did talk about positional therapy at this time. The patient may also benefit from an oral mandibular device to help with snoring. She also had a CT scan of the chest which we personally reviewed from [facility]. Looks like the patient has stable nodular densities and postoperative changes consistent with her old sarcoid. No evidence of any sarcoid activity. She still has the lesions in the spleen that are still being evaluated. She is following closely with GI. Does not appear to be related to sarcoidosis at this time. The patient is having significant weight gain which she has concerned about an upset about. Mainly because she has severe back pain. She is seen multiple specialists although has not been able to get some relief. Will go ahead and send her to our pain management clinic to see if she can be re-evaluated. 02/22/2025 the patient is here for pulmonary follow-up visit. Overall the patient is doing fairly well. She has had significant weight loss on GLP1 for her diabetes. She does have issues with nausea no significant vomiting with it. In addition to that she continues to have some discomfort in the mid lower chest area. Close to decipher she feels like there is an induration there that sometimes can be very pronounced. From a breast cancer standpoint the patient is doing well. She is following closely with her doctors. No evidence of any recurrence that could be appreciated. We did review her last CT scan that was done back in December demonstrating pulmonary nodules. She also has there is due sarcoidosis. In view of the pulmonary nodules in the chest discomfort does ongoing and history of breast cancer will go ahead and request a repeat CAT scan at this point this year from the last 1. We can better address the question of any xyphoid related injury that could explain the discomfort that she had in the chest area. [facility] Medical History (Updated 04/20/24 @ 09:07 by Grady Posada MD) Back pain Splenic cyst, acquired Dyspnea Breast cancer Chest discomfort Sarcoidosis Pulmonary nodules Social History (Updated 02/22/25 @ 15:37 by Stefany Teague CMA) Alcohol intake: never Patient Tobacco Use Status: Former Tobacco user Tobacco use type: Cigarette Years Smoked: 10 years Review of Systems Const Denies chills, Denies fatigue, Denies fever(s), Denies weight gain and Reports weight loss ENT Denies dizziness, Denies lip swelling and Denies tongue swelling Card Reports chest pain, Denies leg edema, Denies lightheadedness, Denies palpitations, Denies dyspnea on exertion, Denies orthopnea and Denies other Resp Reports cough and Denies dyspnea on exertion GI Denies hematochezia, Reports early satiety and Reports nausea Musc Denies abnormal gait, Reports myalgias, Denies muscle weakness, Denies numbness, Denies radiating pain into limb and Denies tingling Neuro Denies abnormal gait, Denies dizziness, Denies numbness and Denies tingling Psych Denies no additional complaints Endo Denies fatigue and Denies palpitations Dae/Lymph Denies easy bleeding and Denies lymphadenopathy Aller/Immun Denies lip swelling and Denies tongue swelling Physical Exam Vital Signs: Last Vital Signs Pulse 81 02/22/25 15:34 BP 124/76 02/22/25 15:34 Pulse Ox 100 02/22/25 15:34 Oxygen Delivery Method Room Air 02/22/25 15:34 BMI result Body Mass Index 30.4 Const General: alert Neck Neck: Yes normal visual inspection, Yes full ROM and Yes no lymphadenopathy Chest Chest palpation & inspection: tenderness xiphoid process (pronounce) Resp Effort & Inspection: normal respiratory effort Auscultation: clear to auscultation bilaterally Cardio Rate: regular rate Rhythm: regular rhythm Heart sounds: S1 normal heart sound present and S2 normal heart sound present GI Palpation (GI): Soft to palpation Auscultation: normal bowel sounds Skin General skin exam: rashes and/or lesions noted Assessment & Plan Assessment & Plan (1) Pulmonary nodules: Code(s): R91.8 - Other nonspecific abnormal finding of lung field Category: Medical (2) Sarcoidosis: Comment: No evidence of active disease Code(s): D86.9 - Sarcoidosis, unspecified Category: Medical (3) Chest discomfort: Code(s): R07.89 - Other chest pain Category: Medical (4) Breast cancer: Code(s): C50.919 - Malignant neoplasm of unspecified site of unspecified female breast Category: Medical Qualifiers: Breast location: unspecified site of breast Estrogen receptor status: positive Laterality: right Patient sex: female Qualified Code(s): C50.911 - Malignant neoplasm of unspecified site of right female breast; Z17.0 - Estrogen receptor positive status [ER+] (5) ADRIENNE (obstructive sleep apnea): Comment: mild AHI 5 Code(s): G47.33 - Obstructive sleep apnea (adult) (pediatric) Category: Medical (6) Back pain: Code(s): M54.9 - Dorsalgia, unspecified Category: Medical Qualifiers: Back pain location: back pain in unspecified location Chronicity: chronic Back pain laterality: unspecified Qualified Code(s): M54.9 - Dorsalgia, unspecified; G89.29 - Other chronic pain (7) Splenic cyst, acquired: Comment: ?related to mononucleosis. Code(s): D73.4 - Cyst of spleen Category: Medical Plan Repeat CT chest positoinal sleep therapy F/U 6-8 months Orders: Orders CT chest wo IV con Today C50.911 - Malignant neoplasm of unspecified site of right female breast, D86.9 - Sarcoidosis, unspecified, R07.89 - Other chest pain, R91.8 - Other nonspecific abnormal finding of lung field, Z17.0 - Estrogen receptor positive status [ER+] Coding Level of Care Code Est Pt Level 4 (55956) Complex EM visit Add On G2211 Diagnoses Pulmonary nodules R91.8 Sarcoidosis D86.9 Chest discomfort R07.89 Malignant neoplasm of right breast in female, estrogen receptor positive, unspecified site of breast C50.911; Z17.0 Breast location: unspecified site of breast Estrogen receptor status: positive Laterality: right Patient sex: female ADRIENNE (obstructive sleep apnea) G47.33 Chronic back pain, unspecified back location, unspecified back pain laterality M54.9; G89.29 Back pain location: back pain in unspecified location Chronicity: chronic Back pain laterality: unspecified Splenic cyst, acquired D73.4 Time Spent (min) 18
[2025-02-22 15:34] VITALS: BP 124/76; PULSE 81; O2SAT 100; BMI 30.4
--- OUTSIDE RECORDS SUMMARY | 2025-02-22 17:06 | XMS_ITS | Clinical Summary ---
Author Organization [facility] Address [address] [place] [address] Phone Care Team Providers Care Dish Maker Name Role Phone Reginaldo Dunlap MD Primary Care Provider [phone] Surgical History Surgery Date Site/Laterality Comments WISDOM TOOTH EXTRACTION PROCEDURE: HISTORICAL WISDOM TEETH EXTRACTION OTHER SURGICAL HISTORY PROCEDURE: HISTORY OTHER; COMMENT: liver biopsy MASTECTOMY 2017 PROCEDURE: HISTORICAL MASTECTOMY OTHER SURGICAL HISTORY Right PROCEDURE: HISTORY OTHER; COMMENT: right middle lobe resection Medical History Medical History Date Comments Chronic back pain 03/13/2022 DX:Chronic clarice k pain History of breast cancer 03/13/2022 DX:Hist ory of breast cancer; COMMENT: S/p mastectomy 2018 Prediabetes 03/13/2022 DX:Prediabetes Pulmonary nodules 10/07/2018 DX:Pulmonary n odules Sarcoidosis 08/12/2017 DX:Sarcoidosis Seasonal allergic rhinitis 02/04/2017 DX:Se asonal allergic rhinitis Sarcoidosis DX:Sarcoidosis Right upper quadrant pain DX:Rig ht upper quadrant pain Hiatal hernia DX:Hiatal hernia Gastritis DX:Gastritis Fatty liver DX:Fatty liver Cyst of spleen DX:Cyst of splee n Sternal pain DX:Sternal pain Cyst of spleen DX:Cyst of splee n Fatty liver DX:Fatty liver Family History Relation Name Status Comments Father Mother Social History Tobacco Use Types Packs/Day Years Used Date Smoking Tobacco: Former Smokeless Tobacco: Never Comments Unknown Sex and Gender Information Value Date Recorded Sex Assigned at Not on file Legal Sex Female 12:14 PM EST Gender Identity Not on file Sexual Orientation Not on file Obstetrics History Last Filed Vital Signs Vital Sign Reading Time Taken Comments Blood Pressure 124/76 12/05/2023 3:38 PM EST Pulse 77 12/05/2023 3:38 PM EST Temperature - - Respiratory Rate - - Oxygen Saturation - - Inhaled Oxygen Concentration - - Weight 99.2 kg (218 lb 12.8 oz) 12/05/2023 3:38 PM EST Height 170.2 cm (5' 7 ) 12/05/2023 3:38 PM EST Body Mass Index 34.27 12/05/2023 3:38 PM EST Plan of Treatment Health Maintenance Due Date Last Done Comments Breast Cancer Screening 1972 Diabetes: Annual Foot Exam 1982 Diabetes: Annual Retina Eye Exam 1982 DTaP,Tdap,and Td Vaccines (1 - Tdap) 1991 Hepatitis A Vaccines (1 of 2 - Risk 2-dose series) 1991 Hepatitis B Vaccines (1 of 3 - 19+ 3-dose series) 1991 Pneumococcal Vaccine: 50+ Years (1 of 2 - PCV) 1991 Pneumococcal Vaccine: Pediatrics (0 to 5 Years) and At-Risk Patients (6 to 64 Years) (1 of 2 - PCV) 1991 Zoster Vaccines (1 of 2) 1991 Cervical Cancer Screening: P ap Smear 1993 Colorectal Cancer Screening: Colonoscopy 09/18/2022 Depression Screening 09/18/2022 HIV Screening 09/18/2022 Hepatitis C Screening 09/18/2022 Social Influencers of Health Screening 09/18/2022 COVID-19 Vaccine (2023-2 5 season) 2024 01/05/2022, 01/28/2021, 01/07/2021 Diabetes: Annual Urine Albumin-Creatinine Ratio (uACR) 11/19/2024 Diabetes: Blood Sugar Contro l Test (HGBA1C) 11/19/2024 Diabetes: Annual GFR (Glomerular Filtration Rate) 03/19/2025 03/19/2024 Influenza Vaccine (Season Ended) 2025 Cholesterol Screening (Lipid Panel) 03/19/2029 03/19/2024 HIB Vaccines Aged Out No longer eligi ble based on patient's age to complete this topic HPV Vaccines Aged Out No longer eligi ble based on patient's age to complete this topic IPV Vaccines Aged Out No longer eligi ble based on patient's age to complete this topic MMR Vaccines Aged Out No longer eligi ble based on patient's age to complete this topic Meningococcal ACWY Vaccine Aged Out N o longer eligible based on patient's age to complete this topic Meningococcal B Vaccine Aged Out No l onger eligible based on patient's age to complete this topic RSV Immunization Patients Under 20 months Aged Out No longer eligible b ased on patient's age to complete this topic Varicella Vaccines Aged Out No longer eligible based on patient's age to complete this topic Insurance [employer] [employer] [employer] Advance Directives Documents on File Type Date Recorded Patient Cutter First Expl anation Health Care Decision (hx) 08/14/2016 AD DUMONT DIRECTIVE Health Care Decision (hx) 08/14/2016 AD DUMONT DIRECTIVE Health Care Decision (hx) 08/14/2016 AD DUMONT DIRECTIVE Health Care Decision (hx) 08/14/2016 AD DUMONT DIRECTIVE Health Care Decision (hx) 08/14/2016 AD DUMONT DIRECTIVE Health Care Decision (hx) 08/14/2016 AD DUMONT DIRECTIVE Health Care Decision (hx) 08/14/2016 AD DUMONT DIRECTIVE Health Care Decision (hx) 08/14/2016 AD DUMONT DIRECTIVE Health Care Decision (hx) 08/14/2016 AD DUMONT DIRECTIVE Care Teams Dish Maker Relationship Specialty Start Date End Date Reginaldo Dunlap MD [address] [place] [id number] PCP - General Internal Medicine 11/05/24
--- OUTSIDE RECORDS SUMMARY | 2025-02-22 17:06 | XMS_ITS ---
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 MEDICATIONS Medication SIG (Take, Route, Frequency, Duration) Notes Start Date End Date Status Ondansetron HCl 4 MG 1 tablet Orally twi ce daily for 30 days 01/01/2025 Active Wegovy 1.7 MG/0.75ML 0.75 mL Subcutaneou s weekly for 30 days 11/17/2024 Active Multivitamin Adults - 1 tab Orally daily for 30 days Active Losartan Potassium 25 MG TAKE 1 TABLET B Y MOUTH EVERY DAY FOR 30 DAYS for 90 Active Zituvio 25 MG 1 Orally Once a day for 90 days 11/17/2024 Active Triamcinolone Acetonide 0.5 % 1 application Externally daily for 14 days Active Loratadine 10 MG 1 tablet Orally Once a day for 30 days Active Calcium+D3 600-20 MG-MCG 1 tablet with a meal Orally Once a day for 90 days Active SOCIAL HISTORY Tobacco Use: Social History Observation Description Date Details (start date - stop date) Former Smoker NA - NA Sex Assigned At : Social History Observation Description Sex Assigned At Unknown Tobacco Use/Smoking Question Answer Notes Are you a former smoker Section Notes: Patient working in [email or web address] Tob: Former (years) ETOH: Socially VITAL SIGNS Heart Rate 82 /min 02/10/2025 Blood pressure systolic 128 mm Hg 02/11/20 25 Blood pressure diastolic 80 mm Hg 025 Weight 193.6 lbs 02/10/2025 BMI 31.24 kg/m2 02/10/2025 Height 66 in 02/10/2025 Oximetry 95 % 02/10/2025 Encounters Encounter Location Date Provider Diagnosis [facility] [address] [place] [address] 02/10/2025 DORI TENA Obesity (BMI 30.0-34 .9) E66.9 ; Xiphoid prominence R29.898 ; BMI 31.0-31.9,adult Z68.31 ; Prediabetes R73.03 ; Lumbar back pain M54.50 and Hyperlipidemia E78.5 ASSESSMENTS Encounter Date Diagnosis Assessment Notes Treatment Notes Treatment Clinical Notes Section Notes 02/10/2025 Obesity (BMI 30.0-34.9) (ICD-10 - E66.9) # Xiphoid prominence, Noted on exam- iwht pain. Check US. Consider CT if US negative. # Prediabetes: Patient has a hx of prediabetes. Her Hgb A1c from this month 6.3 (previously 6.0 in 06/2023). She reports being compliant with Zituvio 25 mg po daily. # Obesity; currently on Wegovy 0.25 mg subcu weekly. 10/01/24: BMI 35, Weight 217. Congratulated on efforts. Continue Wegovy 0.5 mg subcu weekly. Diet/exercise and protein intake was re-discussed. 11/17/24: BMI 33, Weight 206. Coninue Wegovy, dose now Wegovy 1.7 mg subc uweekly. Marv list of low cholestrol foods 01/01/25: BMI 31, Weight 196. Continue Wegovy 1.7 mg subcu weekly. Zofran sent. Discusesd high protein foods and exercise. Lost 9 lb of fat. 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 Renal cyst only singular, no liver lesions. We did discuss IR bx, but given findings are stable, will monitor with CT in 6 mo to continue to ensure there are no changes. If patient truly concerned we can send to ID # Chronic back pain. Improved seeing [facility] # Dermatitis: Triamcinolone cream placed to pharmacy. Appears contact in nature. Add Clairtin 10 mg po daily x 7 days # Osteopeina. Ca + Vit D given Total time spent with patient is 30 minutes, with over half being face to face time. Case discussed with collaborating physician Evan Dunlap who reviewed the assessment and plan. Chart, medications, labs, vital signs reviewed. Dictation was accomplished with the use of Inte[employer] voice recognition software, prone to medical misidentifications and grammatical errors. This is unintentional and the practitioner does try to identify and correct these, but some could still be present. Please do not hesitate to contact practitioner for clarification. All questions answered to patients satisfaction. Patient verbalized understanding of diagnosis and treatments explained. To call sooner prior to next visit it any questions/concerns arise. 02/10/2025 Xiphoid prominence (ICD-10 - R29.898) # Xiphoid prominence, Noted on exam- iwht pain. Check US. Consider CT if US negative. # Prediabetes: Patient has a hx of prediabetes. Her Hgb A1c from this month 6.3 (previously 6.0 in 06/2023). She reports being compliant with Zituvio 25 mg po daily. # Obesity; currently on Wegovy 0.25 mg subcu weekly. 10/01/24: BMI 35, Weight 217. Congratulated on efforts. Continue Wegovy 0.5 mg subcu weekly. Diet/exercise and protein intake was re-discussed. 11/17/24: BMI 33, Weight 206. Coninue Wegovy, dose now Wegovy 1.7 mg subc uweekly. Marv list of low cholestrol foods 01/01/25: BMI 31, Weight 196. Continue Wegovy 1.7 mg subcu weekly. Zofran sent. Discusesd high protein foods and exercise. Lost 9 lb of fat. 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 Renal cyst only singular, no liver lesions. We did discuss IR bx, but given findings are stable, will monitor with CT in 6 mo to continue to ensure there are no changes. If patient truly concerned we can send to ID # Chronic back pain. Improved seeing [facility] # Dermatitis: Triamcinolone cream placed to pharmacy. Appears contact in nature. Add Clairtin 10 mg po daily x 7 days # Osteopeina. Ca + Vit D given Total time spent with patient is 30 minutes, with over half being face to face time. Case discussed with collaborating physician Evan Dunlap who reviewed the assessment and plan. Chart, medications, labs, vital signs reviewed. Dictation was accomplished with the use of [employer] voice recognition software, prone to medical misidentifications and grammatical errors. This is unintentional and the practitioner does try to identify and correct these, but some could still be present. Please do not hesitate to contact practitioner for clarification. All questions answered to patients satisfaction. Patient verbalized understanding of diagnosis and treatments explained. To call sooner prior to next visit it any questions/concerns arise. 02/10/2025 BMI 31.0-31.9,adult (ICD-10 - Z68.31) # Xiphoid prominence, Noted on exam- iwht pain. Check US. Consider CT if US negative. # Prediabetes: Patient has a hx of prediabetes. Her Hgb A1c from this month 6.3 (previously 6.0 in 06/2023). She reports being compliant with Zituvio 25 mg po daily. # Obesity; currently on Wegovy 0.25 mg subcu weekly. 10/01/24: BMI 35, Weight 217. Congratulated on efforts. Continue Wegovy 0.5 mg subcu weekly. Diet/exercise and protein intake was re-discussed. 11/17/24: BMI 33, Weight 206. Coninue Wegovy, dose now Wegovy 1.7 mg subc uweekly. Marv list of low cholestrol foods 01/01/25: BMI 31, Weight 196. Continue Wegovy 1.7 mg subcu weekly. Zofran sent. Discusesd high protein foods and exercise. Lost 9 lb of fat. 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 Renal cyst only singular, no liver lesions. We did discuss IR bx, but given findings are stable, will monitor with CT in 6 mo to continue to ensure there are no changes. If patient truly concerned we can send to ID # Chronic back pain. Improved seeing [facility] # Dermatitis: Triamcinolone cream placed to pharmacy. Appears contact in nature. Add Clairtin 10 mg po daily x 7 days # Osteopeina. Ca + Vit D given Total time spent with patient is 30 minutes, with over half being face to face time. Case discussed with collaborating physician Evan Dunlap who reviewed the assessment and plan. Chart, medications, labs, vital signs reviewed. Dictation was accomplished with the use of [employer] voice recognition software, prone to medical misidentifications and grammatical errors. This is unintentional and the practitioner does try to identify and correct these, but some could still be present. Please do not hesitate to contact practitioner for clarification. All questions answered to patients satisfaction. Patient verbalized understanding of diagnosis and treatments explained. To call sooner prior to next visit it any questions/concerns arise. 02/10/2025 Prediabetes (ICD-10 - R73.03) # Xiphoid prominence, Noted on exam- iwht pain. Check US. Consider CT if US negative. # Prediabetes: Patient has a hx of prediabetes. Her Hgb A1c from this month 6.3 (previously 6.0 in 06/2023). She reports being compliant with Zituvio 25 mg po daily. # Obesity; currently on Wegovy 0.25 mg subcu weekly. 10/01/24: BMI 35, Weight 217. Congratulated on efforts. Continue Wegovy 0.5 mg subcu weekly. Diet/exercise and protein intake was re-discussed. 11/17/24: BMI 33, Weight 206. Coninue Wegovy, dose now Wegovy 1.7 mg subc uweekly. Marv list of low cholestrol foods 01/01/25: BMI 31, Weight 196. Continue Wegovy 1.7 mg subcu weekly. Zofran sent. Discusesd high protein foods and exercise. Lost 9 lb of fat. 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 Renal cyst only singular, no liver lesions. We did discuss IR bx, but given findings are stable, will monitor with CT in 6 mo to continue to ensure there are no changes. If patient truly concerned we can send to ID # Chronic back pain. Improved seeing [facility] # Dermatitis: Triamcinolone cream placed to pharmacy. Appears contact in nature. Add Clairtin 10 mg po daily x 7 days # Osteopeina. Ca + Vit D given Total time spent with patient is 30 minutes, with over half being face to face time. Case discussed with collaborating physician Evan Dunlap who reviewed the assessment and plan. Chart, medications, labs, vital signs reviewed. Dictation was accomplished with the use of [employer] voice recognition software, prone to medical misidentifications and grammatical errors. This is unintentional and the practitioner does try to identify and correct these, but some could still be present. Please do not hesitate to contact practitioner for clarification. All questions answered to patients satisfaction. Patient verbalized understanding of diagnosis and treatments explained. To call sooner prior to next visit it any questions/concerns arise. 02/10/2025 Lumbar back pain (ICD-10 - M54.50) # Xiphoid prominence, Noted on exam- iwht pain. Check US. Consider CT if US negative. # Prediabetes: Patient has a hx of prediabetes. Her Hgb A1c from this month 6.3 (previously 6.0 in 06/2023). She reports being compliant with Zituvio 25 mg po daily. # Obesity; currently on Wegovy 0.25 mg subcu weekly. 10/01/24: BMI 35, Weight 217. Congratulated on efforts. Continue Wegovy 0.5 mg subcu weekly. Diet/exercise and protein intake was re-discussed. 11/17/24: BMI 33, Weight 206. Coninue Wegovy, dose now Wegovy 1.7 mg subc uweekly. Marv list of low cholestrol foods 01/01/25: BMI 31, Weight 196. Continue Wegovy 1.7 mg subcu weekly. Zofran sent. Discusesd high protein foods and exercise. Lost 9 lb of fat. 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 Renal cyst only singular, no liver lesions. We did discuss IR bx, but given findings are stable, will monitor with CT in 6 mo to continue to ensure there are no changes. If patient truly concerned we can send to ID # Chronic back pain. Improved seeing [facility] # Dermatitis: Triamcinolone cream placed to pharmacy. Appears contact in nature. Add Clairtin 10 mg po daily x 7 days # Osteopeina. Ca + Vit D given Total time spent with patient is 30 minutes, with over half being face to face time. Case discussed with collaborating physician Evan Dunlap who reviewed the assessment and plan. Chart, medications, labs, vital signs reviewed. Dictation was accomplished with the use of [employer] voice recognition software, prone to medical misidentifications and grammatical errors. This is unintentional and the practitioner does try to identify and correct these, but some could still be present. Please do not hesitate to contact practitioner for clarification. All questions answered to patients satisfaction. Patient verbalized understanding of diagnosis and treatments explained. To call sooner prior to next visit it any questions/concerns arise. 02/10/2025 Hyperlipidemia (ICD-10 - E78.5) # Xiphoid prominence, Noted on exam- iwht pain. Check US. Consider CT if US negative. # Prediabetes: Patient has a hx of prediabetes. Her Hgb A1c from this month 6.3 (previously 6.0 in 06/2023). She reports being compliant with Zituvio 25 mg po daily. # Obesity; currently on Wegovy 0.25 mg subcu weekly. 10/01/24: BMI 35, Weight 217. Congratulated on efforts. Continue Wegovy 0.5 mg subcu weekly. Diet/exercise and protein intake was re-discussed. 11/17/24: BMI 33, Weight 206. Coninue Wegovy, dose now Wegovy 1.7 mg subc uweekly. Marv list of low cholestrol foods 01/01/25: BMI 31, Weight 196. Continue Wegovy 1.7 mg subcu weekly. Zofran sent. Discusesd high protein foods and exercise. Lost 9 lb of fat. 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 Renal cyst only singular, no liver lesions. We did discuss IR bx, but given findings are stable, will monitor with CT in 6 mo to continue to ensure there are no changes. If patient truly concerned we can send to ID # Chronic back pain. Improved seeing [facility] # Dermatitis: Triamcinolone cream placed to pharmacy. Appears contact in nature. Add Clairtin 10 mg po daily x 7 days # Osteopeina. Ca + Vit D given Total time spent with patient is 30 minutes, with over half being face to face time. Case discussed with collaborating physician Evan Dunlap who reviewed the assessment and plan. Chart, medications, labs, vital signs reviewed. Dictation was accomplished with the use of [employer] voice recognition software, prone to medical misidentifications and grammatical errors. This is unintentional and the practitioner does try to identify and correct these, but some could still be present. Please do not hesitate to contact practitioner for clarification. All questions answered to patients satisfaction. Patient verbalized understanding of diagnosis and treatments explained. To call sooner prior to next visit it any questions/concerns arise. PLAN OF TREATMENT Medication Medication Name Sig Start Date Stop Date Notes Multivitamin Adults - 1 tab Orally daily for 30 days Triamcinolone Acetonide 0.5 % 1 applicat ion Externally daily for 14 days Loratadine 10 MG 1 tablet Orally Once a day for 30 days Calcium+D3 600-20 MG-MCG 1 tablet with a meal Orally Once a day for 90 days Next Appt Details Provider Name:DORI TENA, 03/18/2025 08:15:00 AM, [address] [place] [address], [place], [phone], Progress Notes * DEZ YOU DLDOB:1969 (54 yo F)Acc No.[id number]:02/10/2025 Progress Notes Patient:??DEZ YOU DL Provider:??DORI TENA PA-C :1970?Age:54 Y?Sex:Fe male Date:02/10/2025 Address:[address] [place] [address], [id number] Pcp:EDDIE DUNLAP Subjective: * Chief Complaints: * ?1. Pt is here for f/u- pt was seen for mammo and having pain in between breast sternum area would like looked at maybe ultrasound?. * HPI: ?Constitutional:? Dez is a pleasant 54-year-old female with a past medical history of breast cancer, prediabetes, chronic back pain and GERD who presents today secondary to a bump on her sternum area. Patient reports that she has noticed a bump on her xiphoid process that has been there for a few months. She reports that waxes and wanes in size. She reports is tender to palpation. She denies any localized skin erythema, or fever or chills. Patient went and saw her breast specialist, and given that it was on her xiphoid process, was referred to us. Patient reports that she has not had any abnormal mammograms as of recent. She otherwise is feeling okay. She denies any pain with taking a deep breath. No recent travel. She has not tried taking ibuprofen or Tylenol for the discomfort. Of note, patient does have sarcoid as well. * ROS:?Constitutional: + weight loss, no fever, no night sweats, no changes in sleep. ???Cardiovascular: No chest pain, no dyspnea on exertion, no PND, no orthopnea, no irregular pulse, no palpitations, no claudication, no diaphoresis, no claudication. ???Respiratory: No chronic cough, no hemoptysis, no sputum, no wheezing, no SOB, no pleuritic pain. ???GI, No diarrhea, no constipation, no blood in the stools, no pain associated with eating, no indigestion, no difficulty swallowing, no appetite change. ???Genitourinary: No painful urination, no hesitancy, no blood in the urine, no incontinence, no frequency, no urgency, no abnormal discharge. ???Musculoskeletal: No back pain, no joint pain, no limitations to walking and running, no joint deformity, no joint stiffness, no muscle weakness ???Integumentary: No new skin rash. No new changes in skin moles, no pruritis, no color change. ???Neurological: No history of seizures, no memory loss, no language dysfunction, no inability to concentrate, no localized weakness, no sensation loss, no confusion, no dizziness, no tremor, no numbness, no tingling. ???Psychiatric: + anxiety, no depression, no suicidal thoughts, feels safe at home. ???Endocrine: No polyuria, no polyphagia, no polydipsia. No he ???at/cold intolerance, no excesss thirst. ???Hematological: No easy bruising or bleeding, no lymph node swelling. * Medical History:??RUE thromb osis, Endometriosis, Back pain at L4-L5 level, GERD without esophagitis, Sarcoidosis of lung, History of breast cancer, Herpes simplex, Pre-diabetes, Obesity (BMI 30-39.9), Abnormal uterine and vaginal bleeding, unspecified. * Surgical History:??wisdom te eth extraction , Liver bx , Right armthrombectomy 2015, R mastectomy , Right VATS, middle lobe 2016. * Hospitalization/Major Diagno stic Procedure:??Denies Past Hospitalization. * Family History:??Father: dec eased 39 yrs.??Mother: .??2 sister(s) . .?? Dad: Accident (39) Mom: NHL (1999) Sister: Aortic AA. * Social History:?Tobacco Use:??Tobacco Use/Smoking??Are you a??former smoker.?Patient working in [email or web address] ???Tob: Former (years) ???ETOH: Socially. * Medications:??Taking [place] n Potassium 25 MG Tablet TAKE 1 TABLET BY MOUTH EVERY DAY FOR 30 DAYS , Taking Zituvio 25 MG Tablet 1 Orally Once a day , Taking Ondansetron HCl 4 MG Tablet 1 tablet Orally twice daily As needed nausea, Taking Wegovy 1.7 MG/0.75ML Solution Auto-injector 0.75 mL Subcutaneous weekly , Not-Taking Calcium+D3 600-20 MG-MCG Tablet 1 tablet with a meal Orally Once a day , Not-Taking Multivitamin Adults - Tablet 1 tab Orally daily , Discontinued Ondansetron HCl 4 MG Tablet 1 tablet Orally twice daily , Discontinued Triamcinolone Acetonide 0.5 % Cream 1 application Externally daily , Discontinued Loratadine 10 MG Tablet 1 tablet Orally Once a day , Medication List reviewed and reconciled with the patient * Allergies:??Sulfa Antibiotic s: anaphylaxis. Objective: * Vitals:??HR:82/min, BP:128/8 0mm Hg, Wt:193.6lbs, BMI:31.24Index, Ht: 66 in, Oxygen sat %:95%. * Examination: ?General Examination: ?General: Well appearing, well nourished, age appropriate in no acute distress. Speaking in full, clear sentences. ?SKIN: Warm, dry intact. No rashes/lesions. ?HEENT: Normocephalic atraumatic. ?LUNGS: Clear to auscultation bilaterally, no wheezes, rales or rhonchi ?CARDIAC: Regular rate and rhythm, no murmurs, rubs or gallops. ?Breast: No palpable masses. Xyphoid apryl about a quarter size noted with pain ?Abdomen: Soft, nontender, nondistended. No tenderness if all 4 quadrants. Normoactive bowel sounds. No masses palpable. ?Extremities: Warm and well perfused. No edema noted. ?MSK: Flexion extension bilaterally upper and lower extremities 5/5. Early Breastfeeding Care Specialist strength 5/5. No paraspinous muscle tenderness noted down the spine. No step off deformities. ?Neuro: CN II-XI grossly intact. Speaking in full sentences. Hearing intact. Assessment: * Assessment: 1.??Xiphoid prominence - R29 .898 (Primary)??2.??Obesity (BMI 30.0-34.9) - E66.9??3.??BMI 31.0-31.9,adult - Z68.31??4.??Prediabetes - R73.03??5.??Lumbar back pain - M54.50??6.??Hyperlipidemia - E78.5?? # Xiphoid prominence, Noted on exam- iwht pain. Check US. Consider CT if US negative. # Prediabetes: Patient has a hx of prediabetes. Her Hgb A1c from this month 6.3 (previously 6.0 in 06/2023). She reports being compliant with Zituvio 25 mg po daily. # Obesity; currently on Wegovy 0.25 mg subcu weekly. 10/01/24: BMI 35, Weight 217. Congratulated on efforts. Continue Wegovy 0.5 mg subcu weekly. Diet/exercise and protein intake was re-discussed. 1/28/25: BMI 33, Weight 206. Coninue Wegovy, dose now Wegovy 1.7 mg subc uweekly. Marv list of low cholestrol foods 01/01/25: BMI 31, Weight 196. Continue Wegovy 1.7 mg subcu weekly. Zofran sent. Discusesd high protein foods and exercise. Lost 9 lb of fat. 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 Renal cyst only singular, no liver lesions. We did discuss IR bx, but given findings are stable, will monitor with CT in 6 mo to continue to ensure there are no changes. If patient truly concerned we can send to ID # Chronic back pain. Improved seeing [facility] # Dermatitis: Triamcinolone cream placed to pharmacy. Appears contact in nature. Add Clairtin 10 mg po daily x 7 days # Osteopeina. Ca + Vit D given Total time spent with patient is 30 minutes, with over half being face to face time. Case discussed with collaborating physician Evan Dunlap who reviewed the assessment and plan. Chart, medications, labs, vital signs reviewed. Dictation was accomplished with the use of [employer] voice recognition software, prone to medical misidentifications and grammatical errors. This is unintentional and the practitioner does try to identify and correct these, but some could still be present. Please do not hesitate to contact practitioner for clarification. All questions answered to patients satisfaction. Patient verbalized understanding of diagnosis and treatments explained. To call sooner prior to next visit it any questions/concerns arise. Plan: * Treatment: * Images: Billing Information: * Visit Code:?? 68814 Office Visit, Est Pt., Level 4. Modifiers: SA * Procedure Codes:?? Care Plan Details* * Sign off status: Completed true * Provider:??DORI TENA PA-C Date:?? History and Physical Notes * HPI (History of Present Illness) Category Sub-Category Detail Notes Category Not es Constitutional Dez is a pl easant 54-year-old female with a past medical history of breast cancer, prediabetes, chronic back pain and GERD who presents today secondary to a bump on her sternum area. Patient reports that she has noticed a bump on her xiphoid process that has been there for a few months. She reports that waxes and wanes in size. She reports is tender to palpation. She denies any localized skin erythema, or fever or chills. Patient went and saw her breast specialist, and given that it was on her xiphoid process, was referred to us. Patient reports that she has not had any abnormal mammograms as of recent. She otherwise is feeling okay. She denies any pain with taking a deep breath. No recent travel. She has not tried taking ibuprofen or Tylenol for the discomfort. Of note, patient does have sarcoid as well. Examination Category Sub-Category Detail Notes Category Not es General Examination General: Well appearing, well nourished, age appropriate in no acute distress. Speaking in full, clear sentences. SKIN: Warm, dry intact. No rashes/lesions. HEENT: Normocephalic atraumatic. LUNGS: Clear to auscultation bilaterally, no wheezes, rales or rhonchi CARDIAC: Regular rate and rhythm, no murmurs, rubs or gallops. Breast: No palpable masses. Xyphoid apryl about a quarter size noted with pain Abdomen: Soft, nontender, nondistended. No tenderness if all 4 quadrants. Normoactive bowel sounds. No masses palpable. Extremities: Warm and well perfused. No edema noted. MSK: Flexion extension bilaterally upper and lower extremities 5/5. Early Breastfeeding Care Specialist strength 5/5. No paraspinous muscle tenderness noted down the spine. No step off deformities. Neuro: CN II-XI grossly intact. Speaking in full sentences. Hearing intact.
--- OUTSIDE RECORDS SUMMARY | 2025-02-22 17:06 | XMS_ITS | Patient Health Record ---
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 Role Phone DUNLAPDALIATERESA Primary Care Provider DORI TENA Unavailable [phone] ALLERGIES Allergen (clinical drug ingredient) Drug/Non Drug Allergy documented on EMR Reaction Allergy Type Onset Date Status Substance with sulfonamide structure and antibacterial mechanism of action (substance) Sulfa Antibiotics anaphylaxis Drug Allergy Active RESULTS Component Value Reference Range Notes Hemoglobin [id number] Reviewed date:07/30/2024 08:34:41 AM Interpretation: Performing Lab:[facility], [address] [facility], Phone - [phone], Director - Galina Notes/Report: Hemoglobin A1c 6.3 4.8-5.6 % . Prediabetes: 5.7 - 6.4 Diabetes: >6.4 Glycemic control for adults with diabetes: <7.0 CBC With Differential/Platel et-[id number] Reviewed date:07/30/2024 08:34:41 AM Interpretation: Performing Lab:[facility], [address] [facility], [place], Phone - [phone], Director - MDJodry Notes/Report: WBC 5.6 3.4-10.8 x10E3/uL RBC 4.77 3.77-5.28 x10E6/uL Hemoglobin 14.2 11.1-15.9 g/dL Hematocrit 43.6 34.0-46.6 % MCV 91 79-97 fL MCH 29.8 26.6-33.0 pg MCHC 32.6 31.5-35.7 g/dL RDW 12.7 11.7-15.4 % Platelets 281 150-450 x10E3/uL Neutrophils 58 Not Estab. % Lymphs 28 Not Estab. % Monocytes 8 Not Estab. % Eos 5 Not Estab. % Basos 1 Not Estab. % Immature Cells Neutrophils (Absolute) 3.3 1.4-7.0 x10E3/uL Lymphs (Absolute) 1.6 0.7-3.1 x10E3/uL Monocytes(Absolute) 0.5 0.1-0.9 x10E3/uL Eos (Absolute) 0.3 0.0-0.4 x10E3/uL Baso (Absolute) 0.0 0.0-0.2 x10E3/uL Immature Granulocytes 0 Not Estab. % Immature Grans (Abs) 0.0 0.0-0.1 x10E3/uL NR Hematology Comments: Lipid Panel-[id number] Reviewed date:07/30/2024 08:34:41 AM Interpretation: Performing Lab:[facility], [address] [facility], Phone - [phone], Director - Galina Notes/Report: Cholesterol, Total 209 100-199 mg/dL Triglycerides 113 0-149 mg/dL HDL Cholesterol 40 >39 mg/dL VLDL Cholesterol Gonzalo 21 5-40 mg/dL LDL Chol Calc ([facility]) 148 0-99 mg/dL LDL Calc Comment: Comp. Metabolic Panel (14)-3 [id number] Reviewed date:07/30/2024 08:34:41 AM Interpretation: Performing Lab:[facility], [address] [facility], Phone - [phone], Director - Galina Notes/Report: Glucose 146 70-99 mg/dL BUN 16 6-24 mg/dL Creatinine 0.91 0.57-1.00 mg/dL eGFR 76 >59 mL/min/1.73 BUN/Creatinine Ratio 18 9-23 Sodium 142 134-144 mmol/L Potassium 4.7 3.5-5.2 mmol/L Chloride 105 96-106 mmol/L Carbon Dioxide, Total 24 20-29 mmol/L Calcium 9.5 8.7-10.2 mg/dL Protein, Total 6.8 6.0-8.5 g/dL Albumin 4.1 3.8-4.9 g/dL Globulin, Total 2.7 1.5-4.5 g/dL Bilirubin, Total 0.5 0.0-1.2 mg/dL Alkaline Phosphatase 85 44-121 IU/L AST (SGOT) 19 0-40 IU/L ALT (SGPT) 26 0-32 IU/L Shira Dexa Axial Skeleton Reviewed date:08/17/2024 08:10:33 AM Interpretation: Performing Lab: Notes/Report: Original Ordering Provider: DORI TENA PA-C (EMERY) [facility] Hemoglobin [id number] Reviewed date:11/13/2024 07:58:14 AM Interpretation: Performing Lab:[facility], [address] [place] [address], Phone - [phone], Director - MDJodry Notes/Report: Hemoglobin A1c 6.0 4.8-5.6 % . Prediabetes: 5.7 - 6.4 Diabetes: >6.4 Glycemic control for adults with diabetes: <7.0 CBC With Differential/Platel et-[id number] Reviewed date:11/13/2024 07:58:41 AM Interpretation: Performing Lab:[facility], [address] [place] [address], [place], Phone - [phone], Director - MDJodry Notes/Report: WBC 9.1 3.4-10.8 x10E3/uL RBC 4.78 3.77-5.28 x10E6/uL Hemoglobin 14.4 11.1-15.9 g/dL Hematocrit 43.9 34.0-46.6 % MCV 92 79-97 fL MCH 30.1 26.6-33.0 pg MCHC 32.8 31.5-35.7 g/dL RDW 13.2 11.7-15.4 % Platelets 266 150-450 x10E3/uL Neutrophils 69 Not Estab. % Lymphs 23 Not Estab. % Monocytes 7 Not Estab. % Eos 1 Not Estab. % Basos 0 Not Estab. % Immature Cells Neutrophils (Absolute) 6.2 1.4-7.0 x10E3/uL Lymphs (Absolute) 2.1 0.7-3.1 x10E3/uL Monocytes(Absolute) 0.6 0.1-0.9 x10E3/uL Eos (Absolute) 0.1 0.0-0.4 x10E3/uL Baso (Absolute) 0.0 0.0-0.2 x10E3/uL Immature Granulocytes 0 Not Estab. % Immature Grans (Abs) 0.0 0.0-0.1 x10E3/uL NRBC Hematology Comments: Lipid Panel-[id number] Reviewed date:11/13/2024 07:58:25 AM Interpretation: Performing Lab:[facility] [place], [address] [facility], Phone - [phone], Director - Galina Notes/Report: Cholesterol, Total 202 100-199 mg/dL Triglycerides 87 0-149 mg/dL HDL Cholesterol 44 >39 mg/dL VLDL Cholesterol Gonzalo 16 5-40 mg/dL LDL Chol Calc ([facility]) 142 0-99 mg/dL LDL Calc Comment: Comp. Metabolic Panel (14)-3 Reviewed date:11/13/2024 07:58:20 AM Interpretation: Performing Lab:[facility] [place], [address] [facility], [place], Phone - [phone], Director - Galina Notes/Report: Glucose 111 70-99 mg/dL BUN 23 6-24 mg/dL Creatinine 0.88 0.57-1.00 mg/dL eGFR 79 >59 mL/min/1.73 BUN/Creatinine Ratio 26 9-23 Sodium 141 134-144 mmol/L Potassium 4.7 3.5-5.2 mmol/L Chloride 104 96-106 mmol/L Carbon Dioxide, Total 24 20-29 mmol/L Calcium 9.8 8.7-10.2 mg/dL Protein, Total 6.7 6.0-8.5 g/dL Albumin 4.2 3.8-4.9 g/dL Globulin, Total 2.5 1.5-4.5 g/dL Bilirubin, Total 0.7 0.0-1.2 mg/dL Alkaline Phosphatase 78 44-121 IU/L AST (SGOT) 14 0-40 IU/L ALT (SGPT) 16 0-32 IU/L US ABDOMEN LIMITED Reviewed date:11/20/2024 09:03:07 AM Interpretation: Performing Lab: Notes/Report: Note See Note [facility], a member of [employer] Patient Name: DEZ YOU Date of : 1970 Reason for Exam: fatty liver Exam Date: 11/19/2024 [id number] EST Report Status: Final Ordering Provider: FANNY SALAZAR PCP: EDDIE DUNLAP ABDOMINAL ULTRASOUND-LIMITED History: Fatty liver. Comparison: Abdomina l ultrasound 03/19/2024. FINDINGS: There is n o evidence of cholelithiasis. The common bile duct is not dilated, measuring 5 mm. The gallbladder wall is not thickened. No pericholecystic fluid is seen. No ascites are seen. The visualized pancr eas is normal in size and demonstrates normal echotexture. The liver measures 1 7.3 cm length and demonstrates echogenic echotexture with focal fatty sparing. No focal lesions are seen in the liver and there is no evidence of intrahepatic ductal dilation. Normal hepatopedal flow is seen in the main portal vein. No evidence of hydronephrosis, mass, or calculus was seen in the right kidney. The right kidney measures 10.3 cm in greatest length. IMPRESSION: Hepatic steatosis wi th focal fatty sparing. -------- FINAL REPOR T -------- Dictated By: Mehreen Isaacs Dictated Date: 11/19 09:29 ET Assigned Physician: Mehreen Isaacs Reviewed and Electronically Signed By: Mehreen Isaacs Signed Date: 025 09:33 ET Workstation ID: [id number] Transcribed By: Self Edit Transcribed Date: 11/19/2024 09:29 ET REASON FOR REFERRAL Reason low back pain, evalu ate and treat Diagnosis 1 Chronic pain syndrom e (G89.4) Referral Organization [facility] Referring Provider First Name DORI Referring Provider Last Name MALLIKA Referring Provider Speciality Internal M edicine Referred Provider Specialty Pain Medicin e Clinical Notes Jose De Jesus Jaimes 05/22 09:26:20 AM > faxed pt info to [facility] pain medicine. p)[phone], f) [phone] Referral Priority Routine MEDICATIONS Medication SIG (Take, Route, Frequency, Duration) Notes Start Date End Date Status Multivitamin Adults - 1 tab Orally daily for 30 days Active Losartan Potassium 25 MG TAKE 1 TABLET B Y MOUTH EVERY DAY FOR 30 DAYS for 90 Active Zituvio 25 MG 1 Orally Once a day for 90 days 11/17/2024 Active Ondansetron HCl 4 MG 1 tablet Orally twi ce daily for 30 days 01/01/2025 Active Calcium+D3 600-20 MG-MCG 1 tablet with a meal Orally Once a day for 90 days Active Wegovy 1.7 MG/0.75ML 0.75 mL Subcutaneou s weekly for 30 days 11/17/2024 Active Triamcinolone Acetonide 0.5 % 1 application Externally daily for 14 days Active Loratadine 10 MG 1 tablet Orally Once a day for 30 days Active IMMUNIZATIONS Vaccine Route Administration Date Status Comme nts influenza IM Intramuscular 08/30/2020 Administered influenza IM Intramuscular 08/06/2022 Administered influenza IM Intramuscular 07/09/2023 Administered influenza IM Intramuscular 09/04/2024 Administered SHINGRIX IM Intramuscular 07/09/2023 Administered SHINGRIX IM Intramuscular 01/17/2024 Administered Tdap IM Intramuscular 12/04/2022 Administered SOCIAL HISTORY Tobacco Use: Social History Observation Description Date Details (start date - stop date) Former Smoker NA - NA Sex Assigned At : Social History Observation Description Sex Assigned At Unknown Tobacco Use/Smoking Question Answer Notes Are you a former smoker Section Notes: Patient working in [employer] Tob: Former (years) ETOH: SOcially Patient working in [employer] Patient working in [employer]: Former (years) ETOH: Socially Patient working in [employer]: Former (years) ETOH: Socially Patient working in [employer]: Former (years) ETOH: Socially Patient working in [employer]: Former (years) ETOH: Socially Patient working in [employer]: Former Patient working in [employer]: Former (years) ETOH: Socially Patient working in [employer]: Former (years) ETOH: Socially Patient working in [employer]: Former (years) ETOH: Socially Patient working in [employer] Tob: Former Patient working in [employer]: Former Patient working in [employer] Patient working in [employer] Patient working in [employer] Patient working in [employer] Patient working in [employer]: Former Patient working in [employer] Patient working in [employer] Tob: Former Patient working in [employer] Patient working in [employer]: Former PROBLEMS Problem Type ICD Code Onset Dates Problem Status W/U Status Risk SNOMED Code Notes Problem 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) Active confirmed Carcinoma in situ of breast (919692833) Problem Type 2 diabetes mellitus with hyperglycemia (E11.65) Active confirmed Hyperglycemia d ue to type 2 diabetes mellitus (183144703051495) Problem Type 2 diabetes mellitus with unspecified complications (E11.8) Active confirmed Disorder due to type 2 diabetes mellitus (585289369) Problem Vitamin D deficiency, unspecified (E55.9) Active confirmed Vitamin D deficiency (13879934) Problem Other obesity (E66.8) Active confirmed Obesity (361389732) Problem Hyperlipidemia, unspecified (E78.5) Active confirmed Hyperlipidemia (24236040) Problem Other chronic pain (G89.29) Active confirmed 85633514 Problem Chronic pain syndrome (G89.4) Active confirmed Chronic joselyn n syndrome (312254417) Problem Essential (primary) hypertension (I10) Active confirmed Essential hypertension (87887770) Problem Cerebral atherosclerosis (I67.2) Active confirmed Cerebral atherosclerosis (48482493) Problem Acute pharyngitis, unspecified (J02.9) Active confirmed Acute pharyngit is (013186933) Problem Fatty (change of) liver, not elsewhere classified (K76.0) Active confirmed Fatty kim er (054693115) Problem Dorsalgia, unspecified (M54.9) Active confirmed 869078347 Problem Endometriosis, unspecified (N80.9) Active confirmed Endometriosis (432315330) Problem Localized swelling, mass and lump, trunk (R22.2) Active confirmed Problem Fever, unspecified (R50.9) Active confirmed Fever (144641323) Problem Encounter for screening for lipoid disorders (Z13.220) Active confirmed Lipid screening (271646416) Problem Encounter for screening for osteoporosis (Z13.820) Active confirmed Screening for osteoporosis (396526713) Problem Body mass index (BMI) 36.0-36.9, adult (Z68.36) Active confirmed Body mass ind ex 35.00 to 39.99 (069752882360194) Problem Hyperlipidemia, unspecified (E78.5) Active confirmed Hyperlipidemia (43079654) Problem Prediabetes (R73.03) Active confirmed Prediabetes (541912199) Problem Back pain, unspecified back location, unspecified back pain laterality, unspecified chronicity (M54.9) Active confirmed Backache (688593604) Problem Hyperlipidemia, unspecified hyperlipidemia type (E78.5) Active confirmed 46856281 Problem Adult general medical exam (Z00.00) Active confirmed Adult health examination (984783033) Problem Depression, unspecified depression type (F32.9) Active confirmed Depressive disorder (disorder) (36395636) Problem Hypothyroidism, unspecified type (E03.9) Active confirmed Hypothyroidism (09120975) Problem Obesity (BMI 30.0-34.9) (E66.9) Active confirmed Obese cla ss I (finding) (735127755780054) Problem Sinusitis, unspecified chronicity, unspecified location (J32.9) Active confirmed Chronic sin usitis (57085457) Problem Vitamin D deficiency (E55.9) Active confirmed Vitamin D deficiency (38658070) Problem Pulmonary nodule (R91.1) Active confirmed 505211117 Problem Pre-diabetes (R73.03) Active confirmed Prediabetes (447702104) Problem Diabetes mellitus screening (Z13.1) Active confirmed Diabetes m ellitus screening (082300308) Problem BMI 35.0-35.9,adult (Z68.35) Active confirmed Obese class II (195641005592930) Problem BMI 33.0-33.9,adult (Z68.33) Active confirmed Obese class I (842455478241423) Problem Sinus pressure (J34.89) Active confirmed Sinus pressure (9259878085) Problem Controlled type 2 diabetes mellitus with hyperglycemia, without long-term current use of insulin (E11.65) Active confirmed Hyperglycem ia due to type 2 diabetes mellitus (519240933573719) Problem Anemia due to vitamin B12 deficiency, unspecified B12 deficiency type (D51.9) Active confirmed Vitamin B>12< deficiency anaemia (34780526) Problem BMI 31.0-31.9,adult (Z68.31) Active confirmed Body mass index 30.00 to 34.99 (835815911064463) Problem Elevated lipids (E78.5) Active confirmed Elevated fastin g lipid profile (442808146070) Problem Stress incontinence (N39.3) Active confirmed SI - Stress incontinence (22099540) Problem Hyperlipidemia (E78.5) Active confirmed Hyperlipidemia (65575881) VITAL SIGNS Heart Rate 82 /min 02/10/2025 Blood pressure diastolic 80 mm Hg 02/10/2025 Oximetry 95 % 02/10/2025 Height 66 in 02/10/2025 Blood pressure systolic 128 mm Hg 02/10/2025 Weight 193.6 lbs 02/10/2025 BMI 31.24 kg/m2 02/10/2025 Encounters Encounter Location Date Provider Diagnosis [facility] [address] [place] [address] 06/16/2024 DORI MALLIKA Prediabetes R73.03 ; Obesity (BMI 30.0-34.9) E66.9 and Lumbar back pain M54.50 [facility] [address] [place] [address] 08/04/2024 DORI MALLIKA Prediabetes R73.03 ; Obesity (BMI 30.0-34.9) E66.9 and Lumbar back pain M54.50 [facility] [address] [place] [address] 09/04/2024 DORI MALLIKA Prediabetes R73.03 ; Obesity (BMI 30.0-34.9) E66.9 ; Lumbar back pain M54.50 ; Encounter for immunization Z23 ; Dermatitis L30.9 and Osteopenia of foot, unspecified laterality M85.879 [facility] [address] [place] [address] 10/01/2024 DORI MALLIKA Obesity (BMI 30.0-34 .9) E66.9 ; BMI 35.0-35.9,adult Z68.35 ; Prediabetes R73.03 and Lumbar back pain M54.50 [facility] [address] [place] [address] 11/17/2024 DORI MALLIKA Obesity (BMI 30.0-34 .9) E66.9 ; BMI 33.0-33.9,adult Z68.33 ; Prediabetes R73.03 ; Lumbar back pain M54.50 and Hyperlipidemia E78.5 [facility] [address] [place] [address] 01/01/2025 DORI MALLIKA Obesity (BMI 30.0-34 .9) E66.9 ; BMI 31.0-31.9,adult Z68.31 ; Prediabetes R73.03 ; Lumbar back pain M54.50 and Hyperlipidemia E78.5 [facility] [address] [place] [address] 02/10/2025 DORI MALLIKA Obesity (BMI 30.0-34 .9) E66.9 ; Xiphoid prominence R29.898 ; BMI 31.0-31.9,adult Z68.31 ; Prediabetes R73.03 ; Lumbar back pain M54.50 and Hyperlipidemia E78.5 [facility] [address] [place] [address] 08/21/2024 DORI TENA [facility] [address] [place] [address] 09/15/2024 DALIATERESA DUNLAP [address] [place] [address] 10/15/2024 DORI TENA [facility] [address] [place] [address] 11/11/2024 DORI MALLIKA [address] [place] [address] 12/08/2024 DORI MALLIKA [address] [place] [address] 12/25/2024 DORI MALLIKA [address] [place] [address] 01/11/2025 DORI MALLIKA [address] [place] [address] 02/01/2025 DORI TENA [facility] [address] [place] [address] 02/10/2025 DORI TENA ASSESSMENTS Encounter Date Diagnosis Assessment Notes Treatment Notes Treatment Clinical Notes Section Notes 06/16/2024 Prediabetes (ICD-10 - R73.03) # Prediabetes: Patient has a hx of prediabetes. Her Hgb A1c from this month 6.0 (previously 6.0 in 06/2023). She reports being compliant with Januvia 25 mg po daily. She did not get repeat HbA1C done # Obesity; under increase stress. 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 Renal cyst only singular, no liver lesions. We did discuss IR bx, but given findings are stable, will monitor with CT in 6 mo to continue to ensure there are no changes. If patient truly concerned we can send to ID # Chronic back pain. Has seen [facility] pain mang[facility], as well as neurosurgery. Will refer to [facility]. Case discussed with collaborating physician France Dunlap who reviewed the assessment and plan. Chart, medications, labs, vital signs reviewed. Dictation was accomplished with the use of [employer] voice recognition software, prone to medical misidentifications and grammatical errors. This is unintentional and the practitioner does try to identify and correct these, but some could still be present. Please do not hesitate to contact practitioner for clarification. All questions answered to patients satisfaction. Patient verbalized understanding of diagnosis and treatments explained. To call sooner prior to next visit it any questions/concerns arise. 06/16/2024 Obesity (BMI 30.0-34.9) (ICD-10 - E66.9) # Prediabetes: Patient has a hx of prediabetes. Her Hgb A1c from this month 6.0 (previously 6.0 in 06/2023). She reports being compliant with Januvia 25 mg po daily. She did not get repeat HbA1C done # Obesity; under increase stress. 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 Renal cyst only singular, no liver lesions. We did discuss IR bx, but given findings are stable, will monitor with CT in 6 mo to continue to ensure there are no changes. If patient truly concerned we can send to ID # Chronic back pain. Has seen [facility] pain mangement, as well as neurosurgery. Will refer to [facility]. Case discussed with collaborating physician France Dunlap who reviewed the assessment and plan. Chart, medications, labs, vital signs reviewed. Dictation was accomplished with the use of [employer] voice recognition software, prone to medical misidentifications and grammatical errors. This is unintentional and the practitioner does try to identify and correct these, but some could still be present. Please do not hesitate to contact practitioner for clarification. All questions answered to patients satisfaction. Patient verbalized understanding of diagnosis and treatments explained. To call sooner prior to next visit it any questions/concerns arise. 08/04/2024 Prediabetes (ICD-10 - R73.03) # Prediabetes: Patient has a hx of prediabetes. Her Hgb A1c from this month 6.3 (previously 6.0 in 06/2023). She reports being compliant with Januvia 25 mg po daily. # Obesity; will submit for Wegovy 0.25 mg sucbu weekly. Discussed PA process, as well as medication administration, storage, side effects and dosing. 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 Renal cyst only singular, no liver lesions. We did discuss IR bx, but given findings are stable, will monitor with CT in 6 mo to continue to ensure there are no changes. If patient truly concerned we can send to ID # Chronic back pain. Has seen [facility] pain mangement, as well as neurosurgery. Will refer to [facility]. Will do a prednisone taper. We discussed possible Cymbalta, but pt admanantly refuses at this time. Pt will be given short term Rx for Percocet. Understands to not drive or operate machinery on this medication. Pt may require repeat MRI of lumbar spine. She is very frusturated, as she cannot get relief. Total time spent with patient is 50 minutes, with over half being face to face time. Case discussed with collaborating physician France Dunlap who reviewed the assessment and plan. Chart, medications, labs, vital signs reviewed. Dictation was accomplished with the use of [employer] voice recognition software, prone to medical misidentifications and grammatical errors. This is unintentional and the practitioner does try to identify and correct these, but some could still be present. Please do not hesitate to contact practitioner for clarification. All questions answered to patients satisfaction. Patient verbalized understanding of diagnosis and treatments explained. To call sooner prior to next visit it any questions/concerns arise. 08/04/2024 Obesity (BMI 30.0-34.9) (ICD-10 - E66.9) # Prediabetes: Patient has a hx of prediabetes. Her Hgb A1c from this month 6.3 (previously 6.0 in 06/2023). She reports being compliant with Januvia 25 mg po daily. # Obesity; will submit for Wegovy 0.25 mg sucbu weekly. Discussed PA process, as well as medication administration, storage, side effects and dosing. 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 Renal cyst only singular, no liver lesions. We did discuss IR bx, but given findings are stable, will monitor with CT in 6 mo to continue to ensure there are no changes. If patient truly concerned we can send to ID # Chronic back pain. Has seen [facility] pain mangement, as well as neurosurgery. Will refer to [facility]. Will do a prednisone taper. We discussed possible Cymbalta, but pt admanantly refuses at this time. Pt will be given short term Rx for Percocet. Understands to not drive or operate machinery on this medication. Pt may require repeat MRI of lumbar spine. She is very frusturated, as she cannot get relief. Total time spent with patient is 50 minutes, with over half being face to face time. Case discussed with collaborating physician France Dunlap who reviewed the assessment and plan. Chart, medications, labs, vital signs reviewed. Dictation was accomplished with the use of [employer] voice recognition software, prone to medical misidentifications and grammatical errors. This is unintentional and the practitioner does try to identify and correct these, but some could still be present. Please do not hesitate to contact practitioner for clarification. All questions answered to patients satisfaction. Patient verbalized understanding of diagnosis and treatments explained. To call sooner prior to next visit it any questions/concerns arise. 09/04/2024 Prediabetes (ICD-10 - R73.03) # Prediabetes: Patient has a hx of prediabetes. Her Hgb A1c from this month 6.3 (previously 6.0 in 06/2023). She reports being compliant with Januvia 25 mg po daily. # Obesity; currently on Wegovy 0.25 mg subcu weekly. 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 Renal cyst only singular, no liver lesions. We did discuss IR bx, but given findings are stable, will monitor with CT in 6 mo to continue to ensure there are no changes. If patient truly concerned we can send to ID # Chronic back pain. [facility] appt 09/16/24. # Dermatitis: Triamcinolone cream placed to pharmacy. Appears contact in nature. Add Clairtin 10 mg po daily x 7 days # Osteopeina. Ca + Vit D given # Vaccines: Flu shot Total time spent with patient is 30 minutes, with over half being face to face time. Case discussed with collaborating physician France Dunlap who reviewed the assessment and plan. Chart, medications, labs, vital signs reviewed. Dictation was accomplished with the use of [employer] voice recognition software, prone to medical misidentifications and grammatical errors. This is unintentional and the practitioner does try to identify and correct these, but some could still be present. Please do not hesitate to contact practitioner for clarification. All questions answered to patients satisfaction. Patient verbalized understanding of diagnosis and treatments explained. To call sooner prior to next visit it any questions/concerns arise. 09/04/2024 Obesity (BMI 30.0-34.9) (ICD-10 - E66.9) # Prediabetes: Patient has a hx of prediabetes. Her Hgb A1c from this month 6.3 (previously 6.0 in 06/2023). She reports being compliant with Januvia 25 mg po daily. # Obesity; currently on Wegovy 0.25 mg subcu weekly. 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 Renal cyst only singular, no liver lesions. We did discuss IR bx, but given findings are stable, will monitor with CT in 6 mo to continue to ensure there are no changes. If patient truly concerned we can send to ID # Chronic back pain. [facility] app[facility] 09/16/24. # Dermatitis: Triamcinolone cream placed to pharmacy. Appears contact in nature. Add Clairtin 10 mg po daily x 7 days # Osteopeina. Ca + Vit D given # Vaccines: Flu shot Total time spent with patient is 30 minutes, with over half being face to face time. Case discussed with collaborating physician France Dunlap who reviewed the assessment and plan. Chart, medications, labs, vital signs reviewed. Dictation was accomplished with the use of [employer] voice recognition software, prone to medical misidentifications and grammatical errors. This is unintentional and the practitioner does try to identify and correct these, but some could still be present. Please do not hesitate to contact practitioner for clarification. All questions answered to patients satisfaction. Patient verbalized understanding of diagnosis and treatments explained. To call sooner prior to next visit it any questions/concerns arise. 10/01/2024 Obesity (BMI 30.0-34.9) (ICD-10 - E66.9) # Prediabetes: Patient has a hx of prediabetes. Her Hgb A1c from this month 6.3 (previously 6.0 in 06/2023). She reports being compliant with Januvia 25 mg po daily. # Obesity; currently on Wegovy 0.25 mg subcu weekly. 10/01/24: BMI 35, Weight 227. Congratulated on efforts. Continue Wegovy 0.5 mg subcu weekly. Diet/exercise and protein intake was re-discussed. 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 Renal cyst only singular, no liver lesions. We did discuss IR bx, but given findings are stable, will monitor with CT in 6 mo to continue to ensure there are no changes. If patient truly concerned we can send to ID # Chronic back pain. [facility] app[facility] 09/16/24. # Dermatitis: Triamcinolone cream placed to pharmacy. [...] Dictation was accomplished with the use of [employer] voice recognition software, prone to medical misidentifications and grammatical errors. This is unintentional and the practitioner does try to identify and correct these, but some could still be present. Please do not hesitate to contact practitioner for clarification. All questions answered to patients satisfaction. Patient verbalized understanding of diagnosis and treatments explained. To call sooner prior to next visit it any questions/concerns arise. 10/01/2024 BMI 35.0-35.9,adult (ICD-10 - Z68.35) # Prediabetes: Patient has a hx of prediabetes. Her Hgb A1c from this month 6.3 (previously 6.0 in 06/2023). She reports being compliant with Januvia 25 mg po daily. # Obesity; currently on Wegovy 0.25 mg subcu weekly. 10/01/24: BMI 35, Weight 227. Congratulated on efforts. Continue Wegovy 0.5 mg subcu weekly. Diet/exercise and protein intake was re-discussed. 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 Renal cyst only singular, no liver lesions. We did discuss IR bx, but given findings are stable, will monitor with CT in 6 mo to continue to ensure there are no changes. If patient truly concerned we can send to ID # Chronic back pain. [facility] app[facility] 09/16/24. # Dermatitis: Triamcinolone cream placed to pharmacy. [...] Dictation was accomplished with the use of [employer] voice recognition software, prone to medical misidentifications and grammatical errors. This is unintentional and the practitioner does try to identify and correct these, but some could still be present. Please do not hesitate to contact practitioner for clarification. All questions answered to patients satisfaction. Patient verbalized understanding of diagnosis and treatments explained. To call sooner prior to next visit it any questions/concerns arise. 01/01/2025 Obesity (BMI 30.0-34.9) (ICD-10 - E66.9) # Prediabetes: Patient has a hx of [...] dose now Wegovy 1.7 mg subc uweekly. Gien list of low cholestrol foods 01/01/25: BMI [...] Dictation was accomplished with the use of [employer] voice recognition software, prone to medical misidentifications and grammatical errors. This is unintentional and the practitioner does try to identify and correct these, but some could still be present. Please do not hesitate to contact practitioner for clarification. All questions answered to patients satisfaction. Patient verbalized understanding of diagnosis and treatments explained. To call sooner prior to next visit it any questions/concerns arise. 01/01/2025 BMI 31.0-31.9,adult (ICD-10 - Z68.31) # Prediabetes: Patient has a hx of [...] Dictation was accomplished with the use of [employer] voice recognition software, prone to medical misidentifications [...] next visit it any questions/concerns arise. 02/10/2025 Obesity (BMI 30.0-34.9) (ICD-10 - E66.9) [...] Dictation was accomplished with the use of [employer] voice recognition software, prone to medical misidentifications [...] Dictation was accomplished with the use of [employer] voice recognition software, prone to medical misidentifications and grammatical errors. This is unintentional and the practitioner does try to identify and correct these, but some could still be present. Please do not hesitate to contact practitioner for clarification. All questions answered to patients satisfaction. Patient verbalized understanding of diagnosis and treatments explained. To call sooner prior to next visit it any questions/concerns arise. 11/17/2024 Obesity (BMI 30.0-34.9) (ICD-10 - E66.9) # Prediabetes: Patient has a hx of prediabetes. Her Hgb A1c from this month 6.3 (previously 6.0 in 06/2023). She reports being compliant with Zituvio 25 mg po daily. # Obesity; currently on Wegovy 0.25 mg subcu weekly. 10/01/24: BMI 35, Weight 227. Congratulated on efforts. Continue Wegovy 0.5 mg subcu weekly. Diet/exercise and protein intake was re-discussed. 11/17/24: BMI 33, Weight 218. Coninue Wegovy, dose now Wegovy 1.7 mg subc uweekly. Gien list of low cholestrol foods # Subcentimer spleen nodules. 11/28/23 recent MRI [...] Dictation was accomplished with the use of [employer] voice recognition software, prone to medical misidentifications and grammatical errors. This is unintentional and the practitioner does try to identify and correct these, but some could still be present. Please do not hesitate to contact practitioner for clarification. All questions answered to patients satisfaction. Patient verbalized understanding of diagnosis and treatments explained. To call sooner prior to next visit it any questions/concerns arise. 11/17/2024 BMI 33.0-33.9,adult (ICD-10 - Z68.33) # Prediabetes: Patient has a hx of prediabetes. Her Hgb A1c from this month 6.3 (previously 6.0 in 06/2023). She reports being compliant with Zituvio 25 mg po daily. # Obesity; currently on Wegovy 0.25 mg subcu weekly. 10/01/24: BMI 35, Weight 227. Congratulated on efforts. Continue Wegovy 0.5 mg subcu weekly. Diet/exercise and protein intake was re-discussed. 11/17/24: BMI 33, Weight 218. Coninue Wegovy, dose now Wegovy 1.7 mg subc uweekly. Gien list of low cholestrol foods # Subcentimer spleen nodules. 11/28/23 recent MRI [...] Dictation was accomplished with the use of [employer] voice recognition software, prone to medical misidentifications and grammatical errors. This is unintentional and the practitioner does try to identify and correct these, but some could still be present. Please do not hesitate to contact practitioner for clarification. All questions answered to patients satisfaction. Patient verbalized understanding of diagnosis and treatments explained. To call sooner prior to next visit it any questions/concerns arise. 11/17/2024 Prediabetes (ICD-10 - R73.03) # Prediabetes: Patient has a hx of prediabetes. Her Hgb A1c from this month 6.3 (previously 6.0 in 06/2023). She reports being compliant with Zituvio 25 mg po daily. # Obesity; currently on Wegovy 0.25 mg subcu weekly. 10/01/24: BMI 35, Weight 227. Congratulated on efforts. Continue Wegovy 0.5 mg subcu weekly. Diet/exercise and protein intake was re-discussed. 11/17/24: BMI 33, Weight 218. Coninue Wegovy, dose now Wegovy 1.7 mg subc uweekly. Gien list of low cholestrol foods # Subcentimer spleen nodules. 11/28/23 recent MRI [...] Dictation was accomplished with the use of [employer] voice recognition software, prone to medical misidentifications [...] dose now Wegovy 1.7 mg subc uweekly. Gien list of low cholestrol foods 01/01/25: BMI [...] Dictation was accomplished with the use of [employer] voice recognition software, prone to medical misidentifications and grammatical errors. This is unintentional and the practitioner does try to identify and correct these, but some could still be present. Please do not hesitate to contact practitioner for clarification. All questions answered to patients satisfaction. Patient verbalized understanding of diagnosis and treatments explained. To call sooner prior to next visit it any questions/concerns arise. 01/01/2025 Prediabetes (ICD-10 - R73.03) # Prediabetes: Patient has a hx of [...] dose now Wegovy 1.7 mg subc uweekly. Leanaen list of low cholestrol foods 01/01/25: BMI [...] Dictation was accomplished with the use of [employer] voice recognition software, prone to medical misidentifications and grammatical errors. This is unintentional and the practitioner does try to identify and correct these, but some could still be present. Please do not hesitate to contact practitioner for clarification. All questions answered to patients satisfaction. Patient verbalized understanding of diagnosis and treatments explained. To call sooner prior to next visit it any questions/concerns arise. 09/04/2024 Lumbar back pain (ICD-10 - M54.50) # Prediabetes: Patient has a hx of prediabetes. Her Hgb A1c from this month 6.3 (previously 6.0 in 06/2023). She reports being compliant with Januvia 25 mg po daily. # Obesity; currently on Wegovy 0.25 mg subcu weekly. 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 Renal cyst only singular, no liver lesions. We did discuss IR bx, but given findings are stable, will monitor with CT in 6 mo to continue to ensure there are no changes. If patient truly concerned we can send to ID # Chronic back pain. [facility] appt 09/16/24. # Dermatitis: Triamcinolone cream placed to pharmacy. Appears contact in nature. Add Clairtin 10 mg po daily x 7 days # Osteopeina. Ca + Vit D given # Vaccines: Flu shot Total time spent with patient is 30 minutes, with over half being face to face time. Case discussed with collaborating physician France Dunlap who reviewed the assessment and plan. Chart, medications, labs, vital signs reviewed. Dictation was accomplished with the use of [employer] voice recognition software, prone to medical misidentifications and grammatical errors. This is unintentional and the practitioner does try to identify and correct these, but some could still be present. Please do not hesitate to contact practitioner for clarification. All questions answered to patients satisfaction. Patient verbalized understanding of diagnosis and treatments explained. To call sooner prior to next visit it any questions/concerns arise. 10/01/2024 Prediabetes (ICD-10 - R73.03) # Prediabetes: Patient has a hx of prediabetes. Her Hgb A1c from this month 6.3 (previously 6.0 in 06/2023). She reports being compliant with Januvia 25 mg po daily. # Obesity; currently on Wegovy 0.25 mg subcu weekly. 10/01/24: BMI 35, Weight 227. Congratulated on efforts. Continue Wegovy 0.5 mg subcu weekly. Diet/exercise and protein intake was re-discussed. 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 Renal cyst only singular, no liver lesions. We did discuss IR bx, but given findings are stable, will monitor with CT in 6 mo to continue to ensure there are no changes. If patient truly concerned we can send to ID # Chronic back pain. [facility] appt 09/16/24. # Dermatitis: Triamcinolone cream placed to pharmacy. [...] Dictation was accomplished with the use of [employer] voice recognition software, prone to medical misidentifications and grammatical errors. This is unintentional and the practitioner does try to identify and correct these, but some could still be present. Please do not hesitate to contact practitioner for clarification. All questions answered to patients satisfaction. Patient verbalized understanding of diagnosis and treatments explained. To call sooner prior to next visit it any questions/concerns arise. 08/04/2024 Lumbar back pain (ICD-10 - M54.50) # Prediabetes: Patient has a hx of prediabetes. Her Hgb A1c from this month 6.3 (previously 6.0 in 06/2023). She reports being compliant with Januvia 25 mg po daily. # Obesity; will submit for Wegovy 0.25 mg sucbu weekly. Discussed PA process, as well as medication administration, storage, side effects and dosing. 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 Renal cyst only singular, no liver lesions. We did discuss IR bx, but given findings are stable, will monitor with CT in 6 mo to continue to ensure there are no changes. If patient truly concerned we can send to ID # Chronic back pain. [facility] pain mang[facility], as well as neurosurgery. Will refer to [facility]. Will do a prednisone taper. We discussed possible Cymbalta, but pt admanantly refuses at this time. Pt will be given short term Rx for Percocet. Understands to not drive or operate machinery on this medication. Pt may require repeat MRI of lumbar spine. She is very frusturated, as she cannot get relief. Total time spent with patient is 50 minutes, with over half being face to face time. Case discussed with collaborating physician France Dunlap who reviewed the assessment and plan. Chart, medications, labs, vital signs reviewed. Dictation was accomplished with the use of [employer] voice recognition software, prone to medical misidentifications and grammatical errors. This is unintentional and the practitioner does try to identify and correct these, but some could still be present. Please do not hesitate to contact practitioner for clarification. All questions answered to patients satisfaction. Patient verbalized understanding of diagnosis and treatments explained. To call sooner prior to next visit it any questions/concerns arise. 06/16/2024 Lumbar back pain (ICD-10 - M54.50) # Prediabetes: Patient has a hx of prediabetes. Her Hgb A1c from this month 6.0 (previously 6.0 in 06/2023). She reports being compliant with Januvia 25 mg po daily. She did not get repeat HbA1C done # Obesity; under increase stress. 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 Renal cyst only singular, no liver lesions. We did discuss IR bx, but given findings are stable, will monitor with CT in 6 mo to continue to ensure there are no changes. If patient truly concerned we can send to ID # Chronic back pain. Has [facility] pain mangement, as well as neurosurgery. Will refer to [facility]. Case discussed with collaborating physician France Dunlap who reviewed the assessment and plan. Chart, medications, labs, vital signs reviewed. Dictation was accomplished with the use of [employer] voice recognition software, prone to medical misidentifications and grammatical errors. This is unintentional and the practitioner does try to identify and correct these, but some could still be present. Please do not hesitate to contact practitioner for clarification. All questions answered to patients satisfaction. Patient verbalized understanding of diagnosis and treatments explained. To call sooner prior to next visit it any questions/concerns arise. 09/04/2024 Encounter for immunization (ICD-10 - Z23) # Prediabetes: Patient has a hx of prediabetes. Her Hgb A1c from this month 6.3 (previously 6.0 in 06/2023). She reports being compliant with Januvia 25 mg po daily. # Obesity; currently on Wegovy 0.25 mg subcu weekly. 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 Renal cyst only singular, no liver lesions. We did discuss IR bx, but given findings are stable, will monitor with CT in 6 mo to continue to ensure there are no changes. If patient truly concerned we can send to ID # Chronic back pain. [facility] appt 09/16/24. # Dermatitis: Triamcinolone cream placed to pharmacy. Appears contact in nature. Add Clairtin 10 mg po daily x 7 days # Osteopeina. Ca + Vit D given # Vaccines: Flu shot Total time spent with patient is 30 minutes, with over half being face to face time. Case discussed with collaborating physician France Dunlap who reviewed the assessment and plan. Chart, medications, labs, vital signs reviewed. Dictation was accomplished with the use of [employer] voice recognition software, prone to medical misidentifications and grammatical errors. This is unintentional and the practitioner does try to identify and correct these, but some could still be present. Please do not hesitate to contact practitioner for clarification. All questions answered to patients satisfaction. Patient verbalized understanding of diagnosis and treatments explained. To call sooner prior to next visit it any questions/concerns arise. 10/01/2024 Lumbar back pain (ICD-10 - M54.50) # Prediabetes: Patient has a hx of prediabetes. Her Hgb A1c from this month 6.3 (previously 6.0 in 06/2023). She reports being compliant with Januvia 25 mg po daily. # Obesity; currently on Wegovy 0.25 mg subcu weekly. 10/01/24: BMI 35, Weight 227. Congratulated on efforts. Continue Wegovy 0.5 mg subcu weekly. Diet/exercise and protein intake was re-discussed. 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 Renal cyst only singular, no liver lesions. We did discuss IR bx, but given findings are stable, will monitor with CT in 6 mo to continue to ensure there are no changes. If patient truly concerned we can send to ID # Chronic back pain. [facility] appt 09/16/24. # Dermatitis: Triamcinolone cream placed to pharmacy. [...] Dictation was accomplished with the use of [employer] voice recognition software, prone to medical misidentifications and grammatical errors. This is unintentional and the practitioner does try to identify and correct these, but some could still be present. Please do not hesitate to contact practitioner for clarification. All questions answered to patients satisfaction. Patient verbalized understanding of diagnosis and treatments explained. To call sooner prior to next visit it any questions/concerns arise. 01/01/2025 Lumbar back pain (ICD-10 - M54.50) # Prediabetes: Patient has a hx of [...] dose now Wegovy 1.7 mg subc uweekly. Gikayce list of low cholestrol foods 01/01/25: BMI [...] Dictation was accomplished with the use of [employer] voice recognition software, prone to medical misidentifications [...] Dictation was accomplished with the use of [employer] voice recognition software, prone to medical misidentifications and grammatical errors. This is unintentional and the practitioner does try to identify and correct these, but some could still be present. Please do not hesitate to contact practitioner for clarification. All questions answered to patients satisfaction. Patient verbalized understanding of diagnosis and treatments explained. To call sooner prior to next visit it any questions/concerns arise. 11/17/2024 Lumbar back pain (ICD-10 - M54.50) # Prediabetes: Patient has a hx of prediabetes. Her Hgb A1c from this month 6.3 (previously 6.0 in 06/2023). She reports being compliant with Zituvio 25 mg po daily. # Obesity; currently on Wegovy 0.25 mg subcu weekly. 10/01/24: BMI 35, Weight 227. Congratulated on efforts. Continue Wegovy 0.5 mg subcu weekly. Diet/exercise and protein intake was re-discussed. 11/17/24: BMI 33, Weight 218. Coninue Wegovy, dose now Wegovy 1.7 mg subc uweekly. Gien list of low cholestrol foods # Subcentimer spleen nodules. 11/28/23 recent MRI [...] Dictation was accomplished with the use of [employer] voice recognition software, prone to medical misidentifications and grammatical errors. This is unintentional and the practitioner does try to identify and correct these, but some could still be present. Please do not hesitate to contact practitioner for clarification. All questions answered to patients satisfaction. Patient verbalized understanding of diagnosis and treatments explained. To call sooner prior to next visit it any questions/concerns arise. 11/17/2024 Hyperlipidemia (ICD-10 - E78.5) # Prediabetes: Patient has a hx of prediabetes. Her Hgb A1c from this month 6.3 (previously 6.0 in 06/2023). She reports being compliant with Zituvio 25 mg po daily. # Obesity; currently on Wegovy 0.25 mg subcu weekly. 10/01/24: BMI 35, Weight 227. Congratulated on efforts. Continue Wegovy 0.5 mg subcu weekly. Diet/exercise and protein intake was re-discussed. 11/17/24: BMI 33, Weight 218. Coninue Wegovy, dose now Wegovy 1.7 mg subc uweekly. Gien list of low cholestrol foods # Subcentimer spleen nodules. 11/28/23 recent MRI [...] Dictation was accomplished with the use of [employer] voice recognition software, prone to medical misidentifications [...] Dictation was accomplished with the use of [employer] voice recognition software, prone to medical misidentifications and grammatical errors. This is unintentional and the practitioner does try to identify and correct these, but some could still be present. Please do not hesitate to contact practitioner for clarification. All questions answered to patients satisfaction. Patient verbalized understanding of diagnosis and treatments explained. To call sooner prior to next visit it any questions/concerns arise. 01/01/2025 Hyperlipidemia (ICD-10 - E78.5) # Prediabetes: Patient has a hx of [...] Dictation was accomplished with the use of [employer] voice recognition software, prone to medical misidentifications and grammatical errors. This is unintentional and the practitioner does try to identify and correct these, but some could still be present. Please do not hesitate to contact practitioner for clarification. All questions answered to patients satisfaction. Patient verbalized understanding of diagnosis and treatments explained. To call sooner prior to next visit it any questions/concerns arise. 09/04/2024 Dermatitis (ICD-10 - L30.9) # Prediabetes: Patient has a hx of prediabetes. Her Hgb A1c from this month 6.3 (previously 6.0 in 06/2023). She reports being compliant with Januvia 25 mg po daily. # Obesity; currently on Wegovy 0.25 mg subcu weekly. 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 Renal cyst only singular, no liver lesions. We did discuss IR bx, but given findings are stable, will monitor with CT in 6 mo to continue to ensure there are no changes. If patient truly concerned we can send to ID # Chronic back pain. [facility] appt 09/16/24. # Dermatitis: Triamcinolone cream placed to pharmacy. Appears contact in nature. Add Clairtin 10 mg po daily x 7 days # Osteopeina. Ca + Vit D given # Vaccines: Flu shot Total time spent with patient is 30 minutes, with over half being face to face time. Case discussed with collaborating physician France Dunlap who reviewed the assessment and plan. Chart, medications, labs, vital signs reviewed. Dictation was accomplished with the use of Whats[employer] voice recognition software, prone to medical misidentifications and grammatical errors. This is unintentional and the practitioner does try to identify and correct these, but some could still be present. Please do not hesitate to contact practitioner for clarification. All questions answered to patients satisfaction. Patient verbalized understanding of diagnosis and treatments explained. To call sooner prior to next visit it any questions/concerns arise. 09/04/2024 Osteopenia of foot, unspecified laterality (ICD-10 - M85.879) # Prediabetes: Patient has a hx of prediabetes. Her Hgb A1c from this month 6.3 (previously 6.0 in 06/2023). She reports being compliant with Januvia 25 mg po daily. # Obesity; currently on Wegovy 0.25 mg subcu weekly. 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 Renal cyst only singular, no liver lesions. We did discuss IR bx, but given findings are stable, will monitor with CT in 6 mo to continue to ensure there are no changes. If patient truly concerned we can send to ID # Chronic back pain. [facility] appt 09/16/24. # Dermatitis: Triamcinolone cream placed to pharmacy. Appears contact in nature. Add Clairtin 10 mg po daily x 7 days # Osteopeina. Ca + Vit D given # Vaccines: Flu shot Total time spent with patient is 30 minutes, with over half being face to face time. Case discussed with collaborating physician France Dunlap who reviewed the assessment and plan. Chart, medications, labs, vital signs reviewed. Dictation was accomplished with the use of Whats[employer] voice recognition software, prone to medical misidentifications [...] Dictation was accomplished with the use of [employer] voice recognition software, prone to medical misidentifications [...] it any questions/concerns arise. PLAN OF TREATMENT Pending Test Test Name Order Date Hemoglobin A1c 01/04/2021 Hemoglobin A1c 12/25/2018 Hemoglobin A1c 04/20/2020 Hemoglobin A1c 10/30/2019 WIL w/Reflex 04/05/2021 Lipid Panel 12/25/2018 Comp. Metabolic Panel (14) 04/20/2020 Comp. Metabolic Panel (14) 10/30/2019 CBC 04/20/2020 CBC 12/25/2018 Bone Density 08/04/2024 Urine Culture and Sensitivity 09/07/2020 Urinalysis 12/25/2018 MRI : Abdomen with and without Contrast 07/24/2023 CBC (COMPLETE BLOOD COUNT) 04/05/2021 COMPREHENSIVE METABOLIC PANEL 04/05/2021 COMPREHENSIVE METABOLIC PANEL 12/25/2018 CRP, HIGH SENSITIVITY 12/25/2018 HEMOGLOBIN A1C 10/03/2021 LIPID PANEL 04/05/2021 LYME C6 ANTIBODY 04/05/2021 SEDIMENTATION RATE 04/05/2021 TSH 04/05/2021 Insulin Level 12/25/2018 LIPID PANEL, STANDARD 08/06/2022 LIPID PANEL, STANDARD 12/04/2022 LIPID PANEL, STANDARD 06/16/2024 LIPID PANEL, STANDARD 01/01/2025 LIPID PANEL, STANDARD 02/23/2022 COMPREHENSIVE METABOLIC PANEL 02/23/2022 COMPREHENSIVE METABOLIC PANEL 01/01/2025 COMPREHENSIVE METABOLIC PANEL 07/09/2023 COMPREHENSIVE METABOLIC PANEL 06/16/2024 COMPREHENSIVE METABOLIC PANEL 08/06/2022 CBC (INCLUDES DIFF/PLT) 08/06/2022 CBC (INCLUDES DIFF/PLT) 06/16/2024 CBC (INCLUDES DIFF/PLT) 07/09/2023 CBC (INCLUDES DIFF/PLT) 01/01/2025 URINALYSIS, COMPLETE 08/06/2022 URINALYSIS, COMPLETE 01/01/2025 HEMOGLOBIN A1c 08/06/2022 HEMOGLOBIN A1c 07/09/2023 HEMOGLOBIN A1c 04/04/2023 HEMOGLOBIN A1c 12/04/2022 HEMOGLOBIN A1c 06/16/2024 HEMOGLOBIN A1c 02/23/2022 HEMOGLOBIN A1c 11/01/2021 VITAMIN B12 01/01/2025 VITAMIN B12 07/09/2023 T4, FREE 08/06/2022 TSH 08/06/2022 TSH 07/09/2023 VITAMIN D,25-OH,TOTAL,IA 01/01/2025 VITAMIN D,25-OH,TOTAL,IA 08/06/2022 VITAMIN D,25-OH,TOTAL,IA 07/09/2023 VITAMIN D,25-OH,TOTAL,IA 02/23/2022 CT Chest W/O Contrast 07/24/2023 Hemoglobin [id number] 01/01/2025 TSH+T3+Free T4+T3 Free 01/01/2025 Next Appt Details Provider Name:DORI TENA, 03/18/2025 08:15:00 AM, [address], [place], [address], Insurance Providers Payer Name Payer Address Payer Phone Subscriber Number Group Number Insured Name Patient Relationship to Insured Coverage Start Date Coverage End Date [employer] [address] [place] [address] [id number] YOU DEZ Self - patient is the insured MEDICAL (GENERAL) HISTORY Medical History History ICD Code RUE thrombosis Endometriosis N80.9 Back pain at L4-L5 level M54.50 GERD without esophagitis K21.9 Sarcoidosis of lung D86.0 History of breast cancer Z85.3 Herpes simplex B00.9 Pre-diabetes R73.03 Obesity (BMI 30-39.9) E66.9 Abnormal uterine and vaginal bleeding, u nspecified N93.9 Surgical History Surgery Date(Month/Year) wisdom teeth extraction Liver bx Right armthrombectomy 2016 R mastectomy Right VATS, middle lobe 2016
--- OUTSIDE RECORDS SUMMARY | 2025-02-22 17:06 | XMS_ITS ---
Author Organization [facility] Address [address] [place] [address] Care Team Providers Care Bullet Slugs Inspector Name Role Phone EDDIE GONZALEZ Primary Care Provider DORI TENA Unavailable [phone] REASON FOR VISIT Wegovy PA Encounters Encounter Location Date Provider Diagnosis [facility] [address] [place] [address] 02/10/2025 DORI TENA PLAN OF TREATMENT Next Appt Details Provider Name:DORI TENA, 03/18/2025 08:15:00 AM, [address], [place], [address], Progress Notes * DEZ YOU DLDOB:1969 (54 yo F)Acc No.[id number]:02/10/2025 Patient:??DEZ YOU DL :1970?Age:54 Y?Sex:Fe male Address:[address] [place] [address], [place] [address] * true * Date:??
--- OUTSIDE RECORDS SUMMARY | 2025-02-22 17:07 | XMS_ITS ---
Author Organization [facility] Address [address] [place] [id number] Care Team Providers Care Experimental Assembler Name Role Phone EDDIE GONZALEZ Primary Care Provider DORI TENA [phone] REASON FOR VISIT refill MEDICATIONS Medication SIG (Take, Route, Fr equency, Duration) Notes Start Date End Date Status Wegovy 1.7 MG/0.75ML 0.75 mL Subcutaneou s weekly for 30 days 11/17/2024 Active Encounters Encounter Location Date Provider Diagnosis [address] [place] [phone] 02/01/2025 DORI TENA PLAN OF TREATMENT Medication Medication Name Sig Start Date Stop Date Notes Wegovy 1.7 MG/0.75ML 0.75 mL Subcutaneou s weekly for 30 days 11/17/2024 Next Appt Details Provider Name:DORI TENA, 03/18/2025 08:15:00 AM, [address] [facility], [place], [address], Progress Notes * YOU, DEZ DLDOB:1969 (54 yo F)Acc No.[id number]:02/01/2025 Patient:??DEZ YOU NOEL :1970?Age:54 Y?Sex:Fe male Address:[address] [place] [address], [place] [address] * Refills?? Refill Wegovy Solution Auto-injector, 1.7 MG/0.75ML, Subcutaneous, 3, 0.75 mL, weekly, 30 days, Refills=1 * true * Date:??
== END 2025-02-22 15:58 | disposition home or self-care (01) ==
LOC: HO.HPS 15:33
PROVIDERS: PCP Internal Medicine; Visit Provider Hospitalist
DX: R91.8 Other nonspecific abnormal finding of lung field (principal); D86.9 Sarcoidosis, unspecified; R07.89 Other chest pain; C50.911 Malignant neoplasm of unspecified site of right female breast; Z17.0 Estrogen receptor positive status [ER+]; G47.33 Obstructive sleep apnea (adult) (pediatric); M54.9 Dorsalgia, unspecified; G89.29 Other chronic pain; D73.4 Cyst of spleen
CPT/HCPCS: 99214

== ENCOUNTER → 2025-02-22 15:32 | Outpatient (BNVA) | payer OTHER, SELFPAY | PROVIDERS: PCP Internal Medicine; Visit Provider Hospitalist ==

== ENCOUNTER 2025-06-02 08:30 | Outpatient (REF) | payer OTHER, SELFPAY ==
--- NOTE | ~2025-06-02 | XR_ITS ---
EXAMINATION: XR CHEST CLINICAL INFORMATION: R07.89 - Other chest pain COMPARISON: December 18, 2023. TECHNIQUE: 2 views of the chest were obtained. FINDINGS: Vascular clips in the linear opacities in the inferior right perihilar region/right lower hemithorax. Volume loss, right lung. No gross consolidation, pleural fissure pneumothorax. Cardiomediastinal silhouette size is normal. Asymmetric volume loss in the soft tissues of the right breast prosthesis. Multilevel thoracic spondylosis. XR/XR chest 2V IMPRESSION: Post treatment changes, right middle lung lobe/inferior right perihilar region. Status post right breast prosthesis placement. No acute airspace disease. Electronically signed by: Radames Cornejo MD 06/02/2025 09:28 AM EDT
== END 2025-06-02 08:31 | disposition home or self-care (01) ==
LOC: HO.XRAY 08:30
PROVIDERS: PCP Internal Medicine; Visit Provider Hospitalist
DX: G47.33 Obstructive sleep apnea (adult) (pediatric) (principal); C50.911 Malignant neoplasm of unspecified site of right female breast; D86.9 Sarcoidosis, unspecified; M95.4 Acquired deformity of chest and rib; R07.89 Other chest pain; R91.8 Other nonspecific abnormal finding of lung field; Z17.0 Estrogen receptor positive status [ER+]; Z79.899 Other long term (current) drug therapy
CPT/HCPCS: 71046

== ENCOUNTER 2025-06-02 08:30 | Outpatient (AMB) | payer OTHER, SELFPAY ==
--- NOTE | 2025-06-02 08:32 | A.OFFVIS_ITS ---
Vital Signs 06/02/25 08:33 Height 5 ft 7 in Weight 189 lb 9.561 oz BMI 29.7 BP 140/86 H Blood Pressure Location Lt brachial Position Sitting Pulse 76 Pulse Source Pulse Oximeter Pulse Oximetry (%) 98 Oxygen Delivery Method Room Air Intake Visit Reasons: Obstructive sleep apnea Laboratory Specialist Required: No Accompanied by: Self / Same As Patient Allergies Sulfa Drugs Allergy (Severe, Uncoded 03/30/24 08:12) Rash HPI Comments Details: The patient is a 55 y/o woman with a history of sarcoidosis in addition to pulmonary nodules and breat cancer. She is now cancer free. She was diagnosed with breast cancer is status post surgery and now is recovering very well from her surgeries. She is not using hormonal therapy. She has had history of blood clots. She did have symptoms consistent with sleep apnea. Therefore we had ordered a sleep study. This sleep study was very limited unfortunately because malfunction device. Also the strap was bothering her recent surgery of her breast. So therefore there was also affecting her sleep. Therefore the sleep study was not helpful. At this point she is feeling better. She is not feeling as tired in the morning. She still snoring at night time. However. We did talk about positional changes sleeping elevated receiving her side. She can also try rinsing her nose at night time. The patient does have symptoms consistent with upper airway nasal congestion. Ocqx-hk-aggclyet severity. Resulting in a cough. Only mild. Does not require medications at this time. She is currently getting allergy shots. In regard of her pulmonary nodules. Her last CT scan of the chest to assess the pulmonary nodules and granulomas was back in August 2018. She is time to be scheduled now for a CAT scan August 2019. . We did review her CT scan demonstrating the pulmonary nodules from 2018. She should get another CT scan in August 2020. Patient also describes some congestion in her right lower lung zone area. Primary when she lays flat. Denies any reflux symptoms. She does have a wedge pillow that she had using the past but stopped using because was bothering her. She will re-attempt to use it all may be having breaks to elevate the head of bed to minimize micro aspirations that can lead to some congestion irritation to the right lower lobe area. Will do some blood work at this time. The patient should have an x-ray if she is no better for the chest discomfort. If it symptoms persist an her laboratory data and x-ray data is not helpful we can consider performing the CT scan sooner than August 2020. 12/18/2023 the patient is here for a pulmonary follow-up visit. The patient overall has been doing okay. Continues to have some chest pressure sensations in addition to cough and shortness of breath. Igah-yd-uoanuizl severity. She did have a chest x-ray today without any significant findings. Her last CT scan of the chest was back in February 2022 demonstrating multiple pulmonary nodules. The patient does have a history sarcoidosis and also history of breast cancer. More recently she did undergo an MRI to further address the new splenic cyst. Explained to the patient that I not believe that the cysts are related to any sarcoid. Could be related to the potential mononucleosis infection that she had. This point based on her ongoing symptoms, nondiagnostic chest x-ray and history of cancer go ahead and repeat her CT scan at this time. also to note, the patient is having worsening snorring. Her is having to sleep elsewhere. She has significant daytime drowsiness with EPWORTH score 11/24. We will reques a home sleep study at this time. 03/18/2024 the patient is here for a pulmonary follow-up visit. The patient overall has been doing fairly well from a respiratory status. She does continue to have snoring. Her does complain about her snoring. She did have a home sleep study which we personally reviewed. Her AHI is 5 and is mainly when she lays on her back. We did talk about positional therapy at this time. The patient may also benefit from an oral mandibular device to help with snoring. She also had a CT scan of the chest which we personally reviewed from [facility]. Looks like the patient has stable nodular densities and postoperative changes consistent with her old sarcoid. No evidence of any sarcoid activity. She still has the lesions in the spleen that are still being evaluated. She is following closely with GI. Does not appear to be related to sarcoidosis at this time. The patient is having significant weight gain which she has concerned about an upset about. Mainly because she has severe back pain. She is seen multiple specialists although has not been able to get some relief. Will go ahead and send her to our pain management clinic to see if she can be re-evaluated. 02/22/2025 the patient is here for pulmonary follow-up visit. Overall the patient is doing fairly well. She has had significant weight loss on GLP1 for her diabetes. She does have issues with nausea no significant vomiting with it. In addition to that she continues to have some discomfort in the mid lower chest area. Close to decipher she feels like there is an induration there that sometimes can be very pronounced. From a breast cancer standpoint the patient is doing well. She is following closely with her doctors. No evidence of any recurrence that could be appreciated. We did review her last CT scan that was done back in December demonstrating pulmonary nodules. She also has there is due sarcoidosis. In view of the pulmonary nodules in the chest discomfort does ongoing and history of breast cancer will go ahead and request a repeat CAT scan at this point this year from the last 1. We can better address the question of any xyphoid related injury that could explain the discomfort that she had in the chest area. 06/02/2025 the patient is here for pulmonary follow-up visit. She continues to have the chest discomfort. Primarily in the sternal area feels like a fullness in that area. She did have an ultrasound done which was not conclusive. In the meantime the patient did have a chest x-ray as well. I did review it. No evidence of any abnormal findings although she has had some atelectatic changes and some postoperative changes. The etiology of this sternal prominence is not clear. We did review her previous CT scan of the chest back in 2022 and and she did not have that at that time. Based on the fact that she continues to have discomfort in this area and in his a new finding I will request a CT scan of the chest. In the meantime I will also refer her back to thoracic surgery where she had surgery in the past. They can further address this abnormal prominence at the area of the sternum and xiphoid. From a respiratory status she is doing okay. The patient is having issues with postmenopausal changes. It is affecting her sleep. But right now she does not need any sleep aids and she is not using CPAP. [facility] Medical History (Updated 06/02/25 @ 08:58 by Edu Hunt MD) Sternal deformity Back pain Splenic cyst, acquired Dyspnea Breast cancer Chest discomfort Sarcoidosis Pulmonary nodules Social History Alcohol intake: never Patient Tobacco Use Status: Former Tobacco user Tobacco use type: Cigarette Years Smoked: 10 years Review of Systems Const Denies chills, Denies fatigue, Denies fever(s), Denies weight gain and Reports weight loss ENT Denies dizziness, Denies lip swelling and Denies tongue swelling Card Reports chest pain, Denies leg edema, Denies lightheadedness, Denies palpitations, Denies dyspnea on exertion, Denies orthopnea and Denies other Resp Reports cough and Denies dyspnea on exertion GI Denies hematochezia, Reports early satiety and Reports nausea Musc Denies abnormal gait, Reports myalgias, Denies muscle weakness, Denies numbness, Denies radiating pain into limb and Denies tingling Neuro Denies abnormal gait, Denies dizziness, Denies numbness and Denies tingling Psych Denies no additional complaints Endo Denies fatigue and Denies palpitations Dae/Lymph Denies easy bleeding and Denies lymphadenopathy Aller/Immun Denies lip swelling and Denies tongue swelling Physical Exam Vital Signs: Last Vital Signs Pulse 76 06/02/25 08:33 BP 140/86 H 06/02/25 08:33 Pulse Ox 98 06/02/25 08:33 Oxygen Delivery Method Room Air 06/02/25 08:33 BMI result Body Mass Index 29.7 Const General: alert Neck Neck: Yes normal visual inspection, Yes full ROM and Yes no lymphadenopathy Chest Chest palpation & inspection: tenderness xiphoid process (pronounce) Resp Effort & Inspection: normal respiratory effort Auscultation: clear to auscultation bilaterally Cardio Rate: regular rate Rhythm: regular rhythm Heart sounds: S1 normal heart sound present and S2 normal heart sound present GI Palpation (GI): Soft to palpation Auscultation: normal bowel sounds Skin General skin exam: rashes and/or lesions noted Assessment & Plan Assessment & Plan (1) Pulmonary nodules: Code(s): R91.8 - Other nonspecific abnormal finding of lung field Category: Medical (2) Sarcoidosis: Comment: No evidence of active disease Code(s): D86.9 - Sarcoidosis, unspecified Category: Medical (3) Chest discomfort: Code(s): R07.89 - Other chest pain Category: Medical (4) Breast cancer: Code(s): C50.919 - Malignant neoplasm of unspecified site of unspecified female breast Category: Medical Qualifiers: Breast location: unspecified site of breast Estrogen receptor status: positive Laterality: right Patient sex: female Qualified Code(s): C50.911 - Malignant neoplasm of unspecified site of right female breast; Z17.0 - Estrogen receptor positive status [ER+] (5) ADRIENNE (obstructive sleep apnea): Comment: mild AHI 5 Code(s): G47.33 - Obstructive sleep apnea (adult) (pediatric) Category: Medical (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 - Acquired deformity of chest and rib Category: Medical Plan Peristent CP and sternal anomaly, [place] and chest US ([facility]) were non diagnosistic, requesting CT chest Referral to Thoracic Surgery positoinal sleep therapy F/U 6-8 months Orders: Orders CT chest wo IV con Today M95.4 - Acquired deformity of chest and rib, R07.89 - Other chest pain Referrals Thoracic/General Surgery Referral M95.4 - Acquired deformity of chest and rib, R07.89 - Other chest pain Coding Level of Care Code Est Pt Level 4 (86330) Complex EM visit Add On G2211 Diagnoses Pulmonary nodules R91.8 Sarcoidosis D86.9 Chest discomfort R07.89 Malignant neoplasm of right breast in female, estrogen receptor positive, unspecified site of breast C50.911; Z17.0 Breast location: unspecified site of breast Estrogen receptor status: positive Laterality: right Patient sex: female ADRIENNE (obstructive sleep apnea) G47.33 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
[2025-06-02 08:33] VITALS: BP 140/86; PULSE 76; O2SAT 98; BMI 29.7
--- OUTSIDE RECORDS SUMMARY | 2025-06-02 08:42 | XMS_ITS | Patient Health Record ---
Author Organization [facility] [address] Address [address] [place] [address] Care Team Providers Care Member Of Congress Name Role Phone EDDIE DUNLAP Primary Care Provider [phone] DORI TENA [phone] Allergies Allergen (clinical drug ingredient) Drug/Non Drug Allergy documented on EMR Reaction Allergy Type Onset Date Status Substance with sulfonamide structure and antibacterial mechanism of action (substance) Sulfa Antibiotics anaphylaxis Drug Allergy Active Results Component Value Reference Range Notes Shira Dexa Axial Skeleton Reviewed date:08/17/2024 08:10:33 AM Interpretation: Performing Lab: Notes/Report: Original Ordering Provider[facility] TSH+T3+Free T4+T3 Free Reviewed date:03/17/2025 08:26:10 AM Interpretation: Performing Lab:[facility], [address] [place] [address], [place], Phone - [phone], Director - [place] Notes/Report: TSH-ICMA 2.3 Reference Range: Non- Adult 0.450-4.500 First Trimester 0.100-4.000 Second Trimester 0.200-4.000 Third Trimester 0.300-4.500 Triiodothyronine (T-3), Serum 121 Reference Range: Adults: 55 - 170 Free T-3 3.5 Reference Range: >=20y: 2.0 - 4.4 Free T4 by Dialysis/Audio Recording Engineer 1.3 This test was developed and its performance characteristics determined by [facility]. It has not been cleared or approved by the Food and Drug Administration. Reference Range: Pubertal Children and Adults: 0.8 - 1.7 Comp. Metabolic Panel (14)-3 Reviewed date:03/17/2025 08:26:10 AM Interpretation: Performing Lab:Cater[facility] Lynch, [address] [facility], Phone - [phone], Director - [place] Notes/Report: Glucose 100 70-99 mg/dL BUN 17 6-24 mg/dL Creatinine 0.87 0.57-1.00 mg/dL eGFR 80 >59 mL/min/1.73 BUN/Creatinine Ratio 20 9-23 Sodium 142 134-144 mmol/L Potassium 4.2 3.5-5.2 mmol/L Chloride 104 96-106 mmol/L Carbon Dioxide, Total 19 20-29 mmol/L Calcium 9.7 8.7-10.2 mg/dL Protein, Total 6.9 6.0-8.5 g/dL Albumin 4.4 3.8-4.9 g/dL Globulin, Total 2.5 1.5-4.5 g/dL Bilirubin, Total 0.4 0.0-1.2 mg/dL Alkaline Phosphatase 75 44-121 IU/L AST (SGOT) 16 0-40 IU/L ALT (SGPT) 15 0-32 IU/L Lipid Panel-[id number] Reviewed date:03/17/2025 08:26:10 AM Interpretation: Performing Lab:Caterina Lynch, [address] [facility], [place], Phone - [phone], Director - Galina Notes/Report: Cholesterol, Total 205 100-199 mg/dL Triglycerides 92 0-149 mg/dL HDL Cholesterol 40 >39 mg/dL VLDL Cholesterol Gonzalo 17 5-40 mg/dL LDL Chol Calc (NIH) 148 0-99 mg/dL Vitamin D, 16-Ibrppyw-[id number] Reviewed date:03/17/2025 08:25:55 AM Interpretation: Performing Lab:Caterina Lynch, [address] [facility], Phone - [phone], Director - [place] Notes/Report: Vitamin D, 25-Hydroxy 38.9 30.0-100.0 ng/mL Vitamin D deficiency has been defined by the [place] of [employer] and an Endocrine Society practice guideline as a level of serum 25-OH vitamin D less than 20 ng/mL (1,2). The Endocrine Society went on to further define vitamin D insufficiency as a level between 21 and 29 ng/mL (2). 1. IOM ([place] of Medicine). 2010. Dietary reference intakes for calcium and D. [place]: The National Academies Press. 2. Diana MF, Lia BENITEZ, Debo KRUEGER, et al. Evaluation, treatment, and prevention of vitamin D deficiency: an Endocrine Society clinical practice guideline. JCEM. 2010; 96(4):1911-30. CBC With Differential/Platel et-[id number] Reviewed date:03/17/2025 08:26:10 AM Interpretation: Performing Lab:[facility] [place], [address] [facility], Phone - [phone], Director - [place] Notes/Report: WBC 6.7 3.4-10.8 x10E3/uL RBC 4.70 3.77-5.28 x10E6/uL Hemoglobin 13.9 11.1-15.9 g/dL Hematocrit 43.0 34.0-46.6 % MCV 92 79-97 fL MCH 29.6 26.6-33.0 pg MCHC 32.3 31.5-35.7 g/dL RDW 12.4 11.7-15.4 % Platelets 275 150-450 x10E3/uL Neutrophils 68 Not Estab. % Lymphs 21 Not Estab. % Monocytes 7 Not Estab. % Eos 3 Not Estab. % Basos 1 Not Estab. % Neutrophils (Absolute) 4.7 1.4-7.0 x10E3/uL Lymphs (Absolute) 1.4 0.7-3.1 x10E3/uL Monocytes(Absolute) 0.4 0.1-0.9 x10E3/uL Eos (Absolute) 0.2 0.0-0.4 x10E3/uL Baso (Absolute) 0.0 0.0-0.2 x10E3/uL Immature Granulocytes 0 Not Estab. % Immature Grans (Abs) 0.0 0.0-0.1 x10E3/uL Urinalysis, Complete-[id number] Reviewed date:03/17/2025 08:26:10 AM Interpretation: Performing Lab:[facility] [place], [address], [place], Phone - [phone], Director - Galina Notes/Report: Specific [place] 1.024 1.005-1.030 pH 5.5 5.0-7.5 Urine-Color Yellow Yellow Appearance Clear Clear WBC Esterase 2+ Negative Protein Trace Negative/Trace Glucose Negative Negative Ketones Negative Negative Occult Blood Negative Negative Bilirubin Negative Negative Urobilinogen,Semi-Qn 0.2 0.2-1.0 mg/dL Nitrite, Urine Negative Negative Microscopic Examination See below: Micr oscopic was indicated and was performed. WBC 6-10 0 - 5 /hpf RBC 0-2 0 - 2 /hpf Epithelial Cells (non renal) 0-10 0 - 10 /hpf Casts None seen None seen /lpf Bacteria Few None seen/Few Vitamin [id number] Reviewed date:03/17/2025 08:25:55 AM Interpretation: Performing Lab:[facility]aterina Lynch, [address] [place] [address], Phone - [phone], Director - [place] Notes/Report: Vitamin B12 568 684-2963 pg/mL Hemoglobin [id number] Reviewed date:03/17/2025 08:26:10 AM Interpretation: Performing Lab:[facility] Lynch, [address] [place] [address], Phone - [phone], Director - [place] Notes/Report: Hemoglobin A1c 5.4 4.8-5.6 % . Prediabetes: 5.7 - 6.4 Diabetes: >6.4 Glycemic control for adults with diabetes: <7.0 Comp. Metabolic Panel (14)-3 [id number] Reviewed date:07/30/2024 08:34:41 AM Interpretation: Performing Lab:[facility] Lynch, [address] [place] [address], Phone - [phone], Director - [place] Notes/Report: Glucose 146 70-99 [...] 0-40 IU/L ALT (SGPT) 26 0-32 IU/L Lipid Panel-[id number] Reviewed date:07/30/2024 08:34:41 AM Interpretation: Performing Lab:[facility] [place], [address] [facility], Phone - [phone], Director - [place] Notes/Report: Cholesterol, Total 209 100-199 mg/dL Triglycerides 113 0-149 mg/dL HDL Cholesterol 40 >39 mg/dL VLDL Cholesterol Gonzalo 21 5-40 mg/dL LDL Chol Calc (NIH) 148 0-99 mg/dL CBC With Differential/Platel et-[id number] Reviewed date:07/30/2024 08:34:41 AM Interpretation: Performing Lab:[facility] [place], [address] [facility], [place], Phone - [phone], Director - [place] Notes/Report: WBC 5.6 3.4-10.8 x10E3/uL RBC 4.77 3.77-5.28 x10E6/uL Hemoglobin 14.2 11.1-15.9 g/dL Hematocrit 43.6 34.0-46.6 % MCV 91 79-97 fL MCH 29.8 26.6-33.0 pg MCHC 32.6 31.5-35.7 g/dL RDW 12.7 11.7-15.4 % Platelets 281 150-450 x10E3/uL Neutrophils 58 Not Estab. % Lymphs 28 Not Estab. % Monocytes 8 Not Estab. % Eos 5 Not Estab. % Basos 1 Not Estab. % Neutrophils (Absolute) 3.3 1.4-7.0 x10E3/uL Lymphs (Absolute) 1.6 0.7-3.1 x10E3/uL Monocytes(Absolute) 0.5 0.1-0.9 x10E3/uL Eos (Absolute) 0.3 0.0-0.4 x10E3/uL Baso (Absolute) 0.0 0.0-0.2 x10E3/uL Immature Granulocytes 0 Not Estab. % Immature Grans (Abs) 0.0 0.0-0.1 x10E3/uL Hemoglobin [id number] Reviewed date:07/30/2024 08:34:41 AM Interpretation: Performing Lab:[facility] [place], [address], [place], Phone - [phone], Director - [place] Notes/Report: Hemoglobin A1c 6.3 4.8-5.6 % . Prediabetes: 5.7 - 6.4 Diabetes: >6.4 Glycemic control for adults with diabetes: <7.0 US ABDOMEN LIMITED Reviewed date:11/20/2024 09:03:07 AM Interpretation: Performing Lab: Notes/Report: Note See Note [facility], a member of [employer] Patient Name: DEZ YOU Date of : 1970 Reason for Exam: fatty liver Exam Date: 11/19/2024 [id number] EST Report Status: Final Ordering Provider: FANNY [...] -------- Dictated By: Mehreen Isaacs Dictated Date: 11/19/2024 09:29 ET Assigned Physician: Mehreen Isaacs Reviewed and Electronically Signed By: Mehreen Isaacs Signed Date: 025 09:33 ET Workstation ID: [id number] Transcribed By: Self Edit Transcribed Date: 11/19/2024 09:29 ET Comp. Metabolic Panel (14)-3 [id number] Reviewed date:11/13/2024 07:58:20 AM Interpretation: Performing Lab:[facility] [place], [address] [place] [address], Phone - [phone], Director - MDJodry Notes/Report: Glucose 111 70-99 mg/dL BUN 23 [...] 0-40 IU/L ALT (SGPT) 16 0-32 IU/L Lipid Panel-[id number] Reviewed date:11/13/2024 07:58:25 AM Interpretation: Performing Lab:[facility] [place], [address] [place] [address], Phone - [phone], Director - MDJodry Notes/Report: Cholesterol, Total 202 100-199 mg/dL Triglycerides 87 0-149 mg/dL HDL Cholesterol 44 >39 mg/dL VLDL Cholesterol Gonzalo 16 5-40 mg/dL LDL Chol Calc (NIH) 142 0-99 mg/dL CBC With Differential/Platel et-[id number] Reviewed date:11/13/2024 07:58:41 AM Interpretation: Performing Lab:[facility] [place], [address] [place] [address], Phone - [phone], Director - MDJodry Notes/Report: WBC 9.1 3.4-10.8 [...] Estab. % Basos 0 Not Estab. % Neutrophils (Absolute) 6.2 1.4-7.0 x10E3/uL Lymphs (Absolute) 2.1 0.7-3.1 x10E3/uL Monocytes(Absolute) 0.6 0.1-0.9 x10E3/uL Eos (Absolute) 0.1 0.0-0.4 x10E3/uL Baso (Absolute) 0.0 0.0-0.2 x10E3/uL Immature Granulocytes 0 Not Estab. % Immature Grans (Abs) 0.0 0.0-0.1 x10E3/uL Hemoglobin [id number] Reviewed date:11/13/2024 07:58:14 AM Interpretation: Performing Lab:[facility], [address] [place] [address], [place], Phone - [phone], Director - [place] Notes/Report: Hemoglobin A1c 6.0 4.8-5.6 % . Prediabetes: 5.7 - 6.4 Diabetes: >6.4 Glycemic control for adults with diabetes: <7.0 Reason For Referral Reason low back pain, evalu ate and treat Diagnosis 1 Chronic pain syndrom e (G89.4) [facility] Referring Provider First Name DORI Referring Provider Last Name MALLIKA Referring Provider Speciality Internal M edicine Referred Provider Specialty Pain Medicin e Clinical Notes Jose De Jesus Jaimes 05/22 09:26:20 AM > faxed pt info to [facility] pain medicine. p)[phone], f) [phone] Referral Priority Routine Medications Medication SIG (Take, Route, Frequency, Duration) Notes Start Date End Date Status Multivitamin Adults - 1 tab Orally daily ; Duration: 30 days Not-Taking Calcium+D3 600-20 MG-MCG 1 tablet with a meal Orally Once a day; Duration: 90 days Not-Taking Wegovy 1.7 MG/0.75ML 0.75 mL Subcutaneou s; Duration: 30 days Active Famotidine 40 MG 1 tablet Orally Once a day; Duration: 14 days 04/29/2025 Active Losartan Potassium 25 MG TAKE 1 TABLET B Y MOUTH EVERY DAY FOR 30 DAYS; Duration: 90 Active Ondansetron HCl 4 MG 1 tablet Orally twice daily; Duration: 30 days As needed nausea 01/01/2025 Active Zituvio 25 MG 1 Orally Once a day; Duration: 90 days 11/17/2024 Active Immunizations Vaccine Route Administration Date Status Comme nts influenza IM Intramuscular 08/30/2020 Administered influenza IM Intramuscular 08/06/2022 Administered influenza IM Intramuscular 07/09/2023 Administered influenza IM Intramuscular 09/04/2024 Administered SHINGRIX IM Intramuscular 07/09/2023 Administered SHINGRIX IM Intramuscular 01/17/2024 Administered Tdap IM Intramuscular 12/04/2022 Administered Social History Tobacco Use: Social History Observation Description Date Details (start date - stop date) Former Smoker NA - NA Tobacco Use/Smoking Question Answer Notes Are you a former smoker Section Notes: Patient working in [employer] Patient working in [employer] Tob: Former Patient working in [employer] Tob: Former (years) ETOH: SOcially Patient working in [employer] Tob: Former (years) ETOH: Socially Patient working in [employer] Patient working in [employer] Tob: Former Patient working in [employer] Patient working in [employer] Patient working in [employer] Patient working in [employer] Patient working in [employer] Patient working in [employer] Tob: Former Patient working in [employer] Tob: Former Patient working in [employer] Tob: Former (years) ETOH: Socially Patient working in [employer] Tob: Former (years) ETOH: Socially Patient working in [employer] Tob: Former (years) ETOH: Socially Patient working in [employer] Tob: Former (years) ETOH: Socially Patient working in [employer] Tob: Former Patient working in [employer] Tob: Former Patient working in [employer] Tob: Former (years) ETOH: Socially Patient working in [employer] Tob: Former (years) ETOH: Socially Patient working in [employer] Tob: Former (years) ETOH: Socially Patient working in [employer] Tob: Former (years) ETOH: Socially Problems Problem Type SNOMED Code ICD Code Onset Dates Problem Status W/U Status Risk Notes Problem Information temporarily unavailable 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) Active confirmed Problem Information temporarily unavailable Type 2 diabetes mellitus with hyperglycemia (E11.65) Active confirmed Problem Information temporarily unavailable Type 2 diabetes mellitus with unspecified complications (E11.8) Active confirmed Problem Information temporarily unavailable Vitamin D deficiency, unspecified (E55.9) Active confirmed Problem Information temporarily unavailable Other obesity (E66.8) Active confirmed Problem Information temporarily unavailable Hyperlipidemia, unspecified (E78.5) Active confirmed Problem Information temporarily unavailable Other chronic pain (G89.29) Active confirmed Problem Information temporarily unavailable Chronic pain syndrome (G89.4) Active confirmed Problem Information temporarily unavailable Essential (primary) hypertension (I10) Active confirmed Problem Information temporarily unavailable Cerebral atherosclerosis (I67.2) Active confirmed Problem Information temporarily unavailable Acute pharyngitis, unspecified (J02.9) Active confirmed Problem Information temporarily unavailable Fatty (change of) liver, not elsewhere classified (K76.0) Active confirmed Problem Information temporarily unavailable Dorsalgia, unspecified (M54.9) Active confirmed Problem Information temporarily unavailable Endometriosis, unspecified (N80.9) Active confirmed Problem Information temporarily unavailable Localized swelling, mass and lump, trunk (R22.2) Active confirmed Problem Information temporarily unavailable Fever, unspecified (R50.9) Active confirmed Problem Information temporarily unavailable Encounter for screening for lipoid disorders (Z13.220) Active confirmed Problem Information temporarily unavailable Encounter for screening for osteoporosis (Z13.820) Active confirmed Problem Information temporarily unavailable Body mass index (BMI) 36.0-36.9, adult (Z68.36) Active confirmed Problem Information temporarily unavailable Hyperlipidemia, unspecified (E78.5) Active confirmed Problem Information temporarily unavailable Prediabetes (R73.03) Active confirmed Problem Information temporarily unavailable Back pain, unspecified back location, unspecified back pain laterality, unspecified chronicity (M54.9) Active confirmed Problem Information temporarily unavailable Hyperlipidemia, unspecified hyperlipidemia type (E78.5) Active confirmed Problem Information temporarily unavailable Adult general medical exam (Z00.00) Active confirmed Problem Information temporarily unavailable Depression, unspecified depression type (F32.9) Active confirmed Problem Information temporarily unavailable Hypothyroidism, unspecified type (E03.9) Active confirmed Problem Information temporarily unavailable Obesity (BMI 30.0-34.9) (E66.9) Active confirmed Problem Information temporarily unavailable Sinusitis, unspecified chronicity, unspecified location (J32.9) Active confirmed Problem Information temporarily unavailable Vitamin D deficiency (E55.9) Active confirmed Problem Information temporarily unavailable Pulmonary nodule (R91.1) Active confirmed Problem Information temporarily unavailable Pre-diabetes (R73.03) Active confirmed Problem Information temporarily unavailable Diabetes mellitus screening (Z13.1) Active confirmed Problem Information temporarily unavailable BMI 35.0-35.9,adult (Z68.35) Active confirmed Problem Information temporarily unavailable BMI 33.0-33.9,adult (Z68.33) Active confirmed Problem Information temporarily unavailable Sinus pressure (J34.89) Active confirmed Problem Information temporarily unavailable Controlled type 2 diabetes mellitus with hyperglycemia, without long-term current use of insulin (E11.65) Active confirmed Problem Information temporarily unavailable Anemia due to vitamin B12 deficiency, unspecified B12 deficiency type (D51.9) Active confirmed Problem Information temporarily unavailable BMI 31.0-31.9,adult (Z68.31) Active confirmed Problem Information temporarily unavailable Elevated lipids (E78.5) Active confirmed Problem Information temporarily unavailable Stress incontinence (N39.3) Active confirmed Problem Information temporarily unavailable GERD (gastroesophageal reflux disease) (K21.9) Active confirmed Problem Information temporarily unavailable Hyperlipidemia (E78.5) Active confirmed Vital Signs Heart Rate 81 /min 04/29/2025 Oximetry 98 % 04/29/2025 Blood pressure diastolic 72 mm Hg 04/29/2025 Height 66 in 04/29/2025 Blood pressure systolic 128 mm Hg 04/29/2025 Weight 195.4 lbs 04/29/2025 BMI 31.53 kg/m2 04/29/2025 Encounters Encounter Location Date Provider Diagnosis [facility] [address] [place], [place] 06/16/2024 DORI MALLIKA Prediabetes R73.03 ; Obesity (BMI 30.0-34.9) E66.9 and Lumbar back pain M54.[address] [facility] [address] [place], [place] 08/04/2024 DORI MALLIKA Prediabetes R73.03 ; Obesity (BMI 30.0-34.9) E66.9 and Lumbar back pain M54.[address] [facility] [address] [place], [place] 09/04/2024 DORI MALLIKA Prediabetes R73.03 ; Obesity (BMI 30.0-34.9) E66.9 ; Lumbar back pain M54.50 ; Encounter for immunization Z23 ; Dermatitis L30.9 and Osteopenia of foot, unspecified laterality M85.[address] [facility] [address] [place], [place] 10/01/2024 DORI MALLIKA Obesity (BMI 30.0-34 .9) E66.9 ; BMI 35.0-35.9,adult Z68.35 ; Prediabetes R73.03 and Lumbar back pain M54.[address] [place] [address] 11/17/2024 DORI MALLIKA Obesity (BMI 30.0-34 .9) E66.9 ; BMI 33.0-33.9,adult Z68.33 ; Prediabetes R73.03 ; Lumbar back pain M54.50 and Hyperlipidemia E78.5 [facility] [address] [place], [place] 01/01/2025 DORI MALLIKA Obesity (BMI 30.0-34 .9) E66.9 ; BMI 31.0-31.9,adult Z68.31 ; Prediabetes R73.03 ; Lumbar back pain M54.50 and Hyperlipidemia E78.5 [facility] [address] 02/10/2025 DORI MALLIKA Obesity (BMI 30.0-34 .9) E66.9 ; Xiphoid prominence R29.898 ; BMI 31.0-31.9,adult Z68.31 ; Prediabetes R73.03 ; Lumbar back pain M54.50 and Hyperlipidemia E78.5 [facility] [address] [address] 03/18/2025 DORI JEAN-BAPTISTEA Annual physical exam Z00.00 ; Type 2 diabetes mellitus with hyperglycemia E11.65 ; Obesity (BMI 30.0-34.9) E66.9 ; Lumbar back pain M54.50 and Encounter for examination of blood pressure without abnormal findings Z01.30 [facility] [address] [address] 04/29/2025 DORI MALLIKA Obesity (BMI 30.0-34 .9) E66.9 ; BMI 31.0-31.9,adult Z68.31 ; Type 2 diabetes mellitus with hyperglycemia E11.65 ; GERD (gastroesophageal reflux disease) K21.9 ; Lumbar back pain M54.50 and Encounter for examination of blood pressure without abnormal findings Z01.[address] [address] 08/21/2024 DORI MALLIKA [facility] [address] [place] [address] 09/15/2024 EDDIE DUNLAP [facility] [address] [place] [address] 10/15/2024 DORI MALLIKA [facility] [address] [place] [address] 11/11/2024 DORI MALLIKA [facility] [address] [place] [address] 12/08/2024 DORI MALLIKA [facility] [address] [place] [address] 12/25/2024 DORI MALLIKA [facility] [address] [place] [address] 01/11/2025 DORI MALLIKA [facility] [address] [place] [address] 02/01/2025 DORI MALLIKA [facility] [address] [place] [address] 02/10/2025 DORI MALLIKA [facility] [address] [place] [address] 03/08/2025 DORI MALLIKA [facility] [address] [place] [address] 04/06/2025 DORI MALLIKA [facility] [address] [place] [address] 04/14/2025 DORI MALLIKA [facility] [address] [place] [address] 04/29/2025 DORI MALLIKA Assessments Encounter Date Diagnosis (ICD Code) Assessment Notes Treatment Notes Treatment Clinical Notes [...] ID # Chronic back pain. Has seen [facility] pain mangement, as well as neurosurgery. Will refer to [facility]. Case discussed with collaborating physician France Dunlap who reviewed the assessment and plan. Chart, medications, labs, vital signs reviewed. Dictation was accomplished with the use of [employer] voice recognition software, prone to medical misidentifications [...] ID # Chronic back pain. Has seen [facility] pain mangement, as well as neurosurgery. Will refer to [facility]. Case discussed with collaborating physician France Dun[place] who reviewed the assessment and plan. Chart, medications, labs, vital signs reviewed. Dictation was accomplished with the use of [employer] voice recognition software, prone to medical misidentifications [...] ID # Chronic back pain. Has seen [facility] pain mangement, as well as neurosurgery. Will refer to [facility]. Will do a [...] Dictation was accomplished with the use of [employer] voice recognition software, prone to medical misidentifications [...] ID # Chronic back pain. Has seen [facility] pain mangement, as well as neurosurgery. Will refer to [facility]. Will do a [...] Dictation was accomplished with the use of [employer] voice recognition software, prone to medical misidentifications [...] send to ID # Chronic back pain. [facility] appt 09/16/24. # Dermatitis: Triamcinolone [...] Dictation was accomplished with the use of [employer] voice recognition software, prone to medical misidentifications [...] send to ID # Chronic back pain. [facility] appt 09/16/24. # Dermatitis: Triamcinolone [...] Dictation was accomplished with the use of [employer] voice recognition software, prone to medical misidentifications [...] Dictation was accomplished with the use of [employer] voice recognition software, prone to medical misidentifications [...] Dictation was accomplished with the use of [employer] voice recognition software, prone to medical misidentifications [...] send to ID # Chronic back pain. [facility] appt 09/16/24. # Dermatitis: Triamcinolone [...] Dictation was accomplished with the use of [employer] voice recognition software, prone to medical misidentifications [...] send to ID # Chronic back pain. [facility] appt 09/16/24. # Dermatitis: Triamcinolone [...] Dictation was accomplished with the use of [employer] voice recognition software, prone to medical misidentifications [...] Dictation was accomplished with the use of [employer] voice recognition software, prone to medical misidentifications [...] Dictation was accomplished with the use of [employer] voice recognition software, prone to medical misidentifications [...] Dictation was accomplished with the use of [employer] voice recognition software, prone to medical misidentifications [...] Dictation was accomplished with the use of [employer] voice recognition software, prone to medical misidentifications and grammatical errors. This is unintentional and the practitioner does try to identify and correct these, but some could still be present. Please do not hesitate to contact practitioner for clarification. All questions answered to patients satisfaction. Patient verbalized understanding of diagnosis and treatments explained. To call sooner prior to next visit it any questions/concerns arise. 03/18/2025 Type 2 diabetes mellitus with hyperglycemia (ICD-10 - E11.65) # Prediabetes: Patient has a hx of prediabetes. Her Hgb A1c from this month 6.0 down to 5.4. On Wegovy. # Chest mass. Going for CT chest March # Chronic back pain. Chiropractor recommend. Bring back to [facility] if no improvement # Encounter for immunization: Patient is requesting flu shot and first dose of Shingrix. Patient has a history of right masectomy, so she cannot receive injections in R arm. Patient seen and examined. Comprehensive discussion was done on the following. 1. Nutrition: It is important to follow a healthy diet based on lots of vegetables and legumes and good fat. Avoid processed food and processed carbohydrates. Learn to prepare your own meals. Learn to read labels and avoid high fructose corn syrup, processed chemicals added to increase shelf life and preprepared meals. Avoid fast foods. Learn to eat slowly and plan meals for a week. Try to count calories and be mindful off daily calorie intake. Get into the habit of keeping an eye on your weight by using an appropriate scale. Learn to log exercise and discussed fitness Apps like [employer]Evals which can help keep log off calories taken versus calories burned. Local food should be preferred. Discussed Dirty Dozen Versus Clean Fifteen. Discussed healthy supplements like fish oil, Tumeric, Curcumin, Melatonin, Resveratrol, Probiotics, Vitamin-D, Alpha-Lipoic acid, Vitamin-D and coconut oil. 2. It is important to exercise regularly. Is a good habit to walk at least 30-45 minutes a day. Gentle weightlifting with standard precautions to protect the back. Finding activity like cycling or hiking and get into the habit of engaging in it. Stretching before and after the exercises important. It is also important to contact me if there are any problems like shortness of breath, chest pain, back pain and joint or muscle pain associated with the exercise. 3. Discussed age appropriate screening guidelines. Colonoscopy needs to start at age 50 with stool for occult blood as appropriate. There is a new test that can test for genetic abnormalities in the stool sample. This would not replace a colonoscopy but could be used as a screening tool for patients who do not want a colonoscopy. We discussed the importance of early detection of colon cancer. 4. Discussed current guidelines with respect to breast examination, mammogram and pap smear for early detection of breast and cervical cancer. Patient advised to follow up with these appointments. 5. Discussed safe driving and no use of smart phone while driving 6. Age-appropriate immunizations were discussed. A tetanus booster is needed every 10 years. Flu vaccine is recommended every year just before the start of the flu season. Shingles vaccine is recommended after age 50 but not all insurances cover it.Pneumonia vaccine is given after age 65 unless there are certain comorbidities for which it is started earlier. 7. Diagnostic labs were discussed. These could include CBC CMP and lipids with fasting blood glucose and insulin levels. Vitamin D and hemoglobin A1c testing might be appropriate. Case discussed with collaborating physician Evan Dunlap who reviewed the assessment and plan. Chart, medications, labs, vital signs reviewed. Dictation was accomplished with the use of [employer] voice recognition software, prone to medical misidentifications and grammatical errors. This is unintentional and the practitioner does try to identify and correct these, but some could still be present. Please do not hesitate to contact practitioner for clarification. All questions answered to patients satisfaction. Patient verbalized understanding of diagnosis and treatments explained. To call sooner prior to next visit it any questions/concerns arise. 03/18/2025 Annual physical exam (ICD-10 - Z00.00) # Prediabetes: Patient has a hx of prediabetes. Her Hgb A1c from this month 6.0 down to 5.4. On Wegovy. # Chest mass. Going for CT chest March # Chronic back pain. Chiropractor recommend. Bring back to [facility] if no improvement # Encounter for immunization: Patient is requesting flu shot and first dose of Shingrix. Patient has a history of right masectomy, so she cannot receive injections in R arm. Patient seen and examined. Comprehensive discussion was done on the following. 1. Nutrition: It is important to follow a healthy diet based on lots of vegetables and legumes and good fat. Avoid processed food and processed carbohydrates. Learn to prepare your own meals. Learn to read labels and avoid high fructose corn syrup, processed chemicals added to increase shelf life and preprepared meals. Avoid fast foods. Learn to eat slowly and plan meals for a week. Try to count calories and be mindful off daily calorie intake. Get into the habit of keeping an eye on your weight by using an appropriate scale. Learn to log exercise and discussed fitness Apps like [employer]vals which can help keep log off calories taken versus calories burned. Local food should be preferred. Discussed Dirty Dozen Versus Clean Fifteen. Discussed healthy supplements like fish oil, Tumeric, Curcumin, Melatonin, Resveratrol, Probiotics, Vitamin-D, Alpha-Lipoic acid, Vitamin-D and coconut oil. 2. It is important to exercise regularly. Is a good habit to walk at least 30-45 minutes a day. Gentle weightlifting with standard precautions to protect the back. Finding activity like cycling or hiking and get into the habit of engaging in it. Stretching before and after the exercises important. It is also important to contact me if there are any problems like shortness of breath, chest pain, back pain and joint or muscle pain associated with the exercise. 3. Discussed age appropriate screening guidelines. Colonoscopy needs to start at age 50 with stool for occult blood as appropriate. There is a new test that can test for genetic abnormalities in the stool sample. This would not replace a colonoscopy but could be used as a screening tool for patients who do not want a colonoscopy. We discussed the importance of early detection of colon cancer. 4. Discussed current guidelines with respect to breast examination, mammogram and pap smear for early detection of breast and cervical cancer. Patient advised to follow up with these appointments. 5. Discussed safe driving and no use of smart phone while driving 6. Age-appropriate immunizations were discussed. A tetanus booster is needed every 10 years. Flu vaccine is recommended every year just before the start of the flu season. Shingles vaccine is recommended after age 50 but not all insurances cover it.Pneumonia vaccine is given after age 65 unless there are certain comorbidities for which it is started earlier. 7. Diagnostic labs were discussed. These could include CBC CMP and lipids with fasting blood glucose and insulin levels. Vitamin D and hemoglobin A1c testing might be appropriate. Case discussed with collaborating physician Evan Dunlap who reviewed the assessment and plan. Chart, medications, labs, vital signs reviewed. Dictation was accomplished with the use of [employer] voice recognition software, prone to medical misidentifications and grammatical errors. This is unintentional and the practitioner does try to identify and correct these, but some could still be present. Please do not hesitate to contact practitioner for clarification. All questions answered to patients satisfaction. Patient verbalized understanding of diagnosis and treatments explained. To call sooner prior to next visit it any questions/concerns arise. 04/29/2025 Obesity (BMI 30.0-34.9) (ICD-10 - E66.9) # Obesity 04/29/25: BMI 31, Weight 195 lb. Continue Wegovy 1.7 mg subcu weekly. Patient overall doing well. Will add Famotidine 20 mg po daily x 2 weeks. Avoid spicy/greasy food. Likely due to missing 1 dose. # Prediabetes: Patient has a hx of prediabetes. Her Hgb A1c from this month 6.0 down to 5.4. On Wegovy. # Chronic back pain. Chiropractor recommend. Bring back to [facility] if no improvement # Encounter for immunization: Patient is requesting flu shot and first dose of Shingrix. Patient has a history of right masectomy, so she cannot receive injections in R arm. Patient seen and examined. Comprehensive discussion was done on the following. 1. Nutrition: It is important to follow a healthy diet based on lots of vegetables and legumes and good fat. Avoid processed food and processed carbohydrates. Learn to prepare your own meals. Learn to read labels and avoid high fructose corn syrup, processed chemicals added to increase shelf life and preprepared meals. Avoid fast foods. Learn to eat slowly and plan meals for a week. Try to count calories and be mindful off daily calorie intake. Get into the habit of keeping an eye on your weight by using an appropriate scale. Learn to log exercise and discussed fitness Apps like [employer] which can help keep log off calories taken versus calories burned. Local food should be preferred. Discussed Dirty Dozen Versus Clean Fifteen. Discussed healthy supplements like fish oil, Tumeric, Curcumin, Melatonin, Resveratrol, Probiotics, Vitamin-D, Alpha-Lipoic acid, Vitamin-D and coconut oil. 2. It is important to exercise regularly. Is a good habit to walk at least 30-45 minutes a day. Gentle weightlifting with standard precautions to protect the back. Finding activity like cycling or hiking and get into the habit of engaging in it. Stretching before and after the exercises important. It is also important to contact me if there are any problems like shortness of breath, chest pain, back pain and joint or muscle pain associated with the exercise. 3. Discussed age appropriate screening guidelines. Colonoscopy needs to start at age 50 with stool for occult blood as appropriate. There is a new test that can test for genetic abnormalities in the stool sample. This would not replace a colonoscopy but could be used as a screening tool for patients who do not want a colonoscopy. We discussed the importance of early detection of colon cancer. 4. Discussed current guidelines with respect to breast examination, mammogram and pap smear for early detection of breast and cervical cancer. Patient advised to follow up with these appointments. 5. Discussed safe driving and no use of smart phone while driving 6. Age-appropriate immunizations were discussed. A tetanus booster is needed every 10 years. Flu vaccine is recommended every year just before the start of the flu season. Shingles vaccine is recommended after age 50 but not all insurances cover it.Pneumonia vaccine is given after age 65 unless there are certain comorbidities for which it is started earlier. 7. Diagnostic labs were discussed. These could include CBC CMP and lipids with fasting blood glucose and insulin levels. Vitamin D and hemoglobin A1c testing might be appropriate. Case discussed with collaborating physician Evan Dunlap who reviewed the assessment and plan. Chart, medications, labs, vital signs reviewed. Dictation was accomplished with the use of [employer] voice recognition software, prone to medical misidentifications and grammatical errors. This is unintentional and the practitioner does try to identify and correct these, but some could still be present. Please do not hesitate to contact practitioner for clarification. All questions answered to patients satisfaction. Patient verbalized understanding of diagnosis and treatments explained. To call sooner prior to next visit it any questions/concerns arise. 04/29/2025 BMI 31.0-31.9,adult (ICD-10 - Z68.31) # Obesity 04/29/25: BMI 31, Weight 195 lb. Continue Wegovy 1.7 mg subcu weekly. Patient overall doing well. Will add Famotidine 20 mg po daily x 2 weeks. Avoid spicy/greasy food. Likely due to missing 1 dose. # Prediabetes: Patient has a hx of prediabetes. Her Hgb A1c from this month 6.0 down to 5.4. On Wegovy. # Chronic back pain. Chiropractor recommend. Bring back to [facility] if no improvement # Encounter for immunization: Patient is requesting flu shot and first dose of Shingrix. Patient has a history of right masectomy, so she cannot receive injections in R arm. Patient seen and examined. Comprehensive discussion was done on the following. 1. Nutrition: It is important to follow a healthy diet based on lots of vegetables and legumes and good fat. Avoid processed food and processed carbohydrates. Learn to prepare your own meals. Learn to read labels and avoid high fructose corn syrup, processed chemicals added to increase shelf life and preprepared meals. Avoid fast foods. Learn to eat slowly and plan meals for a week. Try to count calories and be mindful off daily calorie intake. Get into the habit of keeping an eye on your weight by using an appropriate scale. Learn to log exercise and discussed fitness Apps like [employer] which can help keep log off calories taken versus calories burned. Local food should be preferred. Discussed Dirty Dozen Versus Clean Fifteen. Discussed healthy supplements like fish oil, Tumeric, Curcumin, Melatonin, Resveratrol, Probiotics, Vitamin-D, Alpha-Lipoic acid, Vitamin-D and coconut oil. 2. It is important to exercise regularly. Is a good habit to walk at least 30-45 minutes a day. Gentle weightlifting with standard precautions to protect the back. Finding activity like cycling or hiking and get into the habit of engaging in it. Stretching before and after the exercises important. It is also important to contact me if there are any problems like shortness of breath, chest pain, back pain and joint or muscle pain associated with the exercise. 3. Discussed age appropriate screening guidelines. Colonoscopy needs to start at age 50 with stool for occult blood as appropriate. There is a new test that can test for genetic abnormalities in the stool sample. This would not replace a colonoscopy but could be used as a screening tool for patients who do not want a colonoscopy. We discussed the importance of early detection of colon cancer. 4. Discussed current guidelines with respect to breast examination, mammogram and pap smear for early detection of breast and cervical cancer. Patient advised to follow up with these appointments. 5. Discussed safe driving and no use of smart phone while driving 6. Age-appropriate immunizations were discussed. A tetanus booster is needed every 10 years. Flu vaccine is recommended every year just before the start of the flu season. Shingles vaccine is recommended after age 50 but not all insurances cover it.Pneumonia vaccine is given after age 65 unless there are certain comorbidities for which it is started earlier. 7. Diagnostic labs were discussed. These could include CBC CMP and lipids with fasting blood glucose and insulin levels. Vitamin D and hemoglobin A1c testing might be appropriate. Case discussed with collaborating physician Evan Dunlap who reviewed the assessment and plan. Chart, medications, labs, vital signs reviewed. Dictation was accomplished with the use of [employer] voice recognition software, prone to medical misidentifications and grammatical errors. This is unintentional and the practitioner does try to identify and correct these, but some could still be present. Please do not hesitate to contact practitioner for clarification. All questions answered to patients satisfaction. Patient verbalized understanding of diagnosis and treatments explained. To call sooner prior to next visit it any questions/concerns arise. 04/29/2025 Type 2 diabetes mellitus with hyperglycemia (ICD-10 - E11.65) # Obesity 04/29/25: BMI 31, Weight 195 lb. Continue Wegovy 1.7 mg subcu weekly. Patient overall doing well. Will add Famotidine 20 mg po daily x 2 weeks. Avoid spicy/greasy food. Likely due to missing 1 dose. # Prediabetes: Patient has a hx of prediabetes. Her Hgb A1c from this month 6.0 down to 5.4. On Wegovy. # Chronic back pain. Chiropractor recommend. Bring back to [facility] if no improvement # Encounter for immunization: Patient is requesting flu shot and first dose of Shingrix. Patient has a history of right masectomy, so she cannot receive injections in R arm. Patient seen and examined. Comprehensive discussion was done on the following. 1. Nutrition: It is important to follow a healthy diet based on lots of vegetables and legumes and good fat. Avoid processed food and processed carbohydrates. Learn to prepare your own meals. Learn to read labels and avoid high fructose corn syrup, processed chemicals added to increase shelf life and preprepared meals. Avoid fast foods. Learn to eat slowly and plan meals for a week. Try to count calories and be mindful off daily calorie intake. Get into the habit of keeping an eye on your weight by using an appropriate scale. Learn to log exercise and discussed fitness Apps like [employer] which can help keep log off calories taken versus calories burned. Local food should be preferred. Discussed Dirty Dozen Versus Clean Fifteen. Discussed healthy supplements like fish oil, Tumeric, Curcumin, Melatonin, Resveratrol, Probiotics, Vitamin-D, Alpha-Lipoic acid, Vitamin-D and coconut oil. 2. It is important to exercise regularly. Is a good habit to walk at least 30-45 minutes a day. Gentle weightlifting with standard precautions to protect the back. Finding activity like cycling or hiking and get into the habit of engaging in it. Stretching before and after the exercises important. It is also important to contact me if there are any problems like shortness of breath, chest pain, back pain and joint or muscle pain associated with the exercise. 3. Discussed age appropriate screening guidelines. Colonoscopy needs to start at age 50 with stool for occult blood as appropriate. There is a new test that can test for genetic abnormalities in the stool sample. This would not replace a colonoscopy but could be used as a screening tool for patients who do not want a colonoscopy. We discussed the importance of early detection of colon cancer. 4. Discussed current guidelines with respect to breast examination, mammogram and pap smear for early detection of breast and cervical cancer. Patient advised to follow up with these appointments. 5. Discussed safe driving and no use of smart phone while driving 6. Age-appropriate immunizations were discussed. A tetanus booster is needed every 10 years. Flu vaccine is recommended every year just before the start of the flu season. Shingles vaccine is recommended after age 50 but not all insurances cover it.Pneumonia vaccine is given after age 65 unless there are certain comorbidities for which it is started earlier. 7. Diagnostic labs were discussed. These could include CBC CMP and lipids with fasting blood glucose and insulin levels. Vitamin D and hemoglobin A1c testing might be appropriate. Case discussed with collaborating physician Evan Dunlap who reviewed the assessment and plan. Chart, medications, labs, vital signs reviewed. Dictation was accomplished with the use of [employer] voice recognition software, prone to medical misidentifications and grammatical errors. This is unintentional and the practitioner does try to identify and correct these, but some could still be present. Please do not hesitate to contact practitioner for clarification. All questions answered to patients satisfaction. Patient verbalized understanding of diagnosis and treatments explained. To call sooner prior to next visit it any questions/concerns arise. 03/18/2025 Obesity (BMI 30.0-34.9) (ICD-10 - E66.9) # Prediabetes: Patient has a hx of prediabetes. Her Hgb A1c from this month 6.0 down to 5.4. On Wegovy. # Chest mass. Going for CT chest March # Chronic back pain. Chiropractor recommend. Bring back to [facility] if no improvement # Encounter for immunization: Patient is requesting flu shot and first dose of Shingrix. Patient has a history of right masectomy, so she cannot receive injections in R arm. Patient seen and examined. Comprehensive discussion was done on the following. 1. Nutrition: It is important to follow a healthy diet based on lots of vegetables and legumes and good fat. Avoid processed food and processed carbohydrates. Learn to prepare your own meals. Learn to read labels and avoid high fructose corn syrup, processed chemicals added to increase shelf life and preprepared meals. Avoid fast foods. Learn to eat slowly and plan meals for a week. Try to count calories and be mindful off daily calorie intake. Get into the habit of keeping an eye on your weight by using an appropriate scale. Learn to log exercise and discussed fitness Apps like [employer] which can help keep log off calories taken versus calories burned. Local food should be preferred. Discussed Dirty Dozen Versus Clean Fifteen. Discussed healthy supplements like fish oil, Tumeric, Curcumin, Melatonin, Resveratrol, Probiotics, Vitamin-D, Alpha-Lipoic acid, Vitamin-D and coconut oil. 2. It is important to exercise regularly. Is a good habit to walk at least 30-45 minutes a day. Gentle weightlifting with standard precautions to protect the back. Finding activity like cycling or hiking and get into the habit of engaging in it. Stretching before and after the exercises important. It is also important to contact me if there are any problems like shortness of breath, chest pain, back pain and joint or muscle pain associated with the exercise. 3. Discussed age appropriate screening guidelines. Colonoscopy needs to start at age 50 with stool for occult blood as appropriate. There is a new test that can test for genetic abnormalities in the stool sample. This would not replace a colonoscopy but could be used as a screening tool for patients who do not want a colonoscopy. We discussed the importance of early detection of colon cancer. 4. Discussed current guidelines with respect to breast examination, mammogram and pap smear for early detection of breast and cervical cancer. Patient advised to follow up with these appointments. 5. Discussed safe driving and no use of smart phone while driving 6. Age-appropriate immunizations were discussed. A tetanus booster is needed every 10 years. Flu vaccine is recommended every year just before the start of the flu season. Shingles vaccine is recommended after age 50 but not all insurances cover it.Pneumonia vaccine is given after age 65 unless there are certain comorbidities for which it is started earlier. 7. Diagnostic labs were discussed. These could include CBC CMP and lipids with fasting blood glucose and insulin levels. Vitamin D and hemoglobin A1c testing might be appropriate. Case discussed with collaborating physician Evan Dunlap who reviewed the assessment and plan. Chart, medications, labs, vital signs reviewed. Dictation was accomplished with the use of [employer] voice recognition software, prone to medical misidentifications [...] re-discussed. 11/17/24: BMI 33, Weight 206. Coninue [place], dose now Wegovy 1.7 mg subc uweekly. Marv list of low cholestrol foods 3/14/25: BMI 31, Weight 196. Continue Wegovy 1.7 [...] Dictation was accomplished with the use of [employer] voice recognition software, prone to medical misidentifications [...] Dictation was accomplished with the use of [employer] voice recognition software, prone to medical misidentifications [...] ID # Chronic back pain. Improved seeing [facility] # Dermatitis: Triamcinolone cream [...] Dictation was accomplished with the use of [employer] voice recognition software, prone to medical misidentifications [...] send to ID # Chronic back pain. [facility] appt 09/16/24. # Dermatitis: Triamcinolone [...] Dictation was accomplished with the use of [employer] voice recognition software, prone to medical misidentifications [...] Dictation was accomplished with the use of [employer] voice recognition software, prone to medical misidentifications [...] ID # Chronic back pain. Has seen [place] and [facility] pain mangement, as well as neurosurgery. Will refer to [facility]. Will do a [...] Dictation was accomplished with the use of [employer] voice recognition software, prone to medical misidentifications [...] ID # Chronic back pain. Has seen [facility] and [facility] pain mangement, as well as neurosurgery. Will refer to [facility]. Case discussed with collaborating physician France Dunlap who reviewed the assessment and plan. Chart, medications, labs, vital signs reviewed. Dictation was accomplished with the use of [employer] voice recognition software, prone to medical misidentifications [...] send to ID # Chronic back pain. [facility] appt 09/16/24. # Dermatitis: Triamcinolone [...] Dictation was accomplished with the use of [employer] voice recognition software, prone to medical misidentifications [...] Dictation was accomplished with the use of [employer] voice recognition software, prone to medical misidentifications [...] Dictation was accomplished with the use of [employer] voice recognition software, prone to medical misidentifications [...] Dictation was accomplished with the use of [employer] voice recognition software, prone to medical misidentifications [...] Dictation was accomplished with the use of [employer] voice recognition software, prone to medical misidentifications and grammatical errors. This is unintentional and the practitioner does try to identify and correct these, but some could still be present. Please do not hesitate to contact practitioner for clarification. All questions answered to patients satisfaction. Patient verbalized understanding of diagnosis and treatments explained. To call sooner prior to next visit it any questions/concerns arise. 03/18/2025 Lumbar back pain (ICD-10 - M54.50) # Prediabetes: Patient has a hx of prediabetes. Her Hgb A1c from this month 6.0 down to 5.4. On Wegov. # Chest mass. Going for CT chest March # Chronic back pain. Chiropractor recommend. Bring back to [facility] if no improvement # Encounter for immunization: Patient is requesting flu shot and first dose of Shingrix. Patient has a history of right masectomy, so she cannot receive injections in R arm. Patient seen and examined. Comprehensive discussion was done on the following. 1. Nutrition: It is important to follow a healthy diet based on lots of vegetables and legumes and good fat. Avoid processed food and processed carbohydrates. Learn to prepare your own meals. Learn to read labels and avoid high fructose corn syrup, processed chemicals added to increase shelf life and preprepared meals. Avoid fast foods. Learn to eat slowly and plan meals for a week. Try to count calories and be mindful off daily calorie intake. Get into the habit of keeping an eye on your weight by using an appropriate scale. Learn to log exercise and discussed fitness Apps like BoardEvals which can help keep log off calories taken versus calories burned. Local food should be preferred. Discussed Dirty Dozen Versus Clean Fifteen. Discussed healthy supplements like fish oil, Tumeric, Curcumin, Melatonin, Resveratrol, Probiotics, Vitamin-D, Alpha-Lipoic acid, Vitamin-D and coconut oil. 2. It is important to exercise regularly. Is a good habit to walk at least 30-45 minutes a day. Gentle weightlifting with standard precautions to protect the back. Finding activity like cycling or hiking and get into the habit of engaging in it. Stretching before and after the exercises important. It is also important to contact me if there are any problems like shortness of breath, chest pain, back pain and joint or muscle pain associated with the exercise. 3. Discussed age appropriate screening guidelines. Colonoscopy needs to start at age 50 with stool for occult blood as appropriate. There is a new test that can test for genetic abnormalities in the stool sample. This would not replace a colonoscopy but could be used as a screening tool for patients who do not want a colonoscopy. We discussed the importance of early detection of colon cancer. 4. Discussed current guidelines with respect to breast examination, mammogram and pap smear for early detection of breast and cervical cancer. Patient advised to follow up with these appointments. 5. Discussed safe driving and no use of smart phone while driving 6. Age-appropriate immunizations were discussed. A tetanus booster is needed every 10 years. Flu vaccine is recommended every year just before the start of the flu season. Shingles vaccine is recommended after age 50 but not all insurances cover it.Pneumonia vaccine is given after age 65 unless there are certain comorbidities for which it is started earlier. 7. Diagnostic labs were discussed. These could include CBC CMP and lipids with fasting blood glucose and insulin levels. Vitamin D and hemoglobin A1c testing might be appropriate. Case discussed with collaborating physician Evan Dunlap who reviewed the assessment and plan. Chart, medications, labs, vital signs reviewed. Dictation was accomplished with the use of [employer] voice recognition software, prone to medical misidentifications and grammatical errors. This is unintentional and the practitioner does try to identify and correct these, but some could still be present. Please do not hesitate to contact practitioner for clarification. All questions answered to patients satisfaction. Patient verbalized understanding of diagnosis and treatments explained. To call sooner prior to next visit it any questions/concerns arise. 04/29/2025 GERD (gastroesophageal reflux disease) (ICD-10 - K21.9) # Obesity 04/29/25: BMI 31, Weight 195 lb. Continue Wegovy 1.7 mg subcu weekly. Patient overall doing well. Will add Famotidine 20 mg po daily x 2 weeks. Avoid spicy/greasy food. Likely due to missing 1 dose. # Prediabetes: Patient has a hx of prediabetes. Her Hgb A1c from this month 6.0 down to 5.4. On Wegovy. # Chronic back pain. Chiropractor recommend. Bring back to [facility] if no improvement # Encounter for immunization: Patient is requesting flu shot and first dose of Shingrix. Patient has a history of right masectomy, so she cannot receive injections in R arm. Patient seen and examined. Comprehensive discussion was done on the following. 1. Nutrition: It is important to follow a healthy diet based on lots of vegetables and legumes and good fat. Avoid processed food and processed carbohydrates. Learn to prepare your own meals. Learn to read labels and avoid high fructose corn syrup, processed chemicals added to increase shelf life and preprepared meals. Avoid fast foods. Learn to eat slowly and plan meals for a week. Try to count calories and be mindful off daily calorie intake. Get into the habit of keeping an eye on your weight by using an appropriate scale. Learn to log exercise and discussed fitness Apps like [employer]vals which can help keep log off calories taken versus calories burned. Local food should be preferred. Discussed Dirty Dozen Versus Clean Fifteen. Discussed healthy supplements like fish oil, Tumeric, Curcumin, Melatonin, Resveratrol, Probiotics, Vitamin-D, Alpha-Lipoic acid, Vitamin-D and coconut oil. 2. It is important to exercise regularly. Is a good habit to walk at least 30-45 minutes a day. Gentle weightlifting with standard precautions to protect the back. Finding activity like cycling or hiking and get into the habit of engaging in it. Stretching before and after the exercises important. It is also important to contact me if there are any problems like shortness of breath, chest pain, back pain and joint or muscle pain associated with the exercise. 3. Discussed age appropriate screening guidelines. Colonoscopy needs to start at age 50 with stool for occult blood as appropriate. There is a new test that can test for genetic abnormalities in the stool sample. This would not replace a colonoscopy but could be used as a screening tool for patients who do not want a colonoscopy. We discussed the importance of early detection of colon cancer. 4. Discussed current guidelines with respect to breast examination, mammogram and pap smear for early detection of breast and cervical cancer. Patient advised to follow up with these appointments. 5. Discussed safe driving and no use of smart phone while driving 6. Age-appropriate immunizations were discussed. A tetanus booster is needed every 10 years. Flu vaccine is recommended every year just before the start of the flu season. Shingles vaccine is recommended after age 50 but not all insurances cover it.Pneumonia vaccine is given after age 65 unless there are certain comorbidities for which it is started earlier. 7. Diagnostic labs were discussed. These could include CBC CMP and lipids with fasting blood glucose and insulin levels. Vitamin D and hemoglobin A1c testing might be appropriate. Case discussed with collaborating physician Evan Dunlap who reviewed the assessment and plan. Chart, medications, labs, vital signs reviewed. Dictation was accomplished with the use of [employer] voice recognition software, prone to medical misidentifications and grammatical errors. This is unintentional and the practitioner does try to identify and correct these, but some could still be present. Please do not hesitate to contact practitioner for clarification. All questions answered to patients satisfaction. Patient verbalized understanding of diagnosis and treatments explained. To call sooner prior to next visit it any questions/concerns arise. 04/29/2025 Lumbar back pain (ICD-10 - M54.50) # Obesity 04/29/25: BMI 31, Weight 195 lb. Continue Wegovy 1.7 mg subcu weekly. Patient overall doing well. Will add Famotidine 20 mg po daily x 2 weeks. Avoid spicy/greasy food. Likely due to missing 1 dose. # Prediabetes: Patient has a hx of prediabetes. Her Hgb A1c from this month 6.0 down to 5.4. On Wegovy. # Chronic back pain. Chiropractor recommend. Bring back to [facility] if no improvement # Encounter for immunization: Patient is requesting flu shot and first dose of Shingrix. Patient has a history of right masectomy, so she cannot receive injections in R arm. Patient seen and examined. Comprehensive discussion was done on the following. 1. Nutrition: It is important to follow a healthy diet based on lots of vegetables and legumes and good fat. Avoid processed food and processed carbohydrates. Learn to prepare your own meals. Learn to read labels and avoid high fructose corn syrup, processed chemicals added to increase shelf life and preprepared meals. Avoid fast foods. Learn to eat slowly and plan meals for a week. Try to count calories and be mindful off daily calorie intake. Get into the habit of keeping an eye on your weight by using an appropriate scale. Learn to log exercise and discussed fitness Apps like [employer] which can help keep log off calories taken versus calories burned. Local food should be preferred. Discussed Dirty Dozen Versus Clean Fifteen. Discussed healthy supplements like fish oil, Tumeric, Curcumin, Melatonin, Resveratrol, Probiotics, Vitamin-D, Alpha-Lipoic acid, Vitamin-D and coconut oil. 2. It is important to exercise regularly. Is a good habit to walk at least 30-45 minutes a day. Gentle weightlifting with standard precautions to protect the back. Finding activity like cycling or hiking and get into the habit of engaging in it. Stretching before and after the exercises important. It is also important to contact me if there are any problems like shortness of breath, chest pain, back pain and joint or muscle pain associated with the exercise. 3. Discussed age appropriate screening guidelines. Colonoscopy needs to start at age 50 with stool for occult blood as appropriate. There is a new test that can test for genetic abnormalities in the stool sample. This would not replace a colonoscopy but could be used as a screening tool for patients who do not want a colonoscopy. We discussed the importance of early detection of colon cancer. 4. Discussed current guidelines with respect to breast examination, mammogram and pap smear for early detection of breast and cervical cancer. Patient advised to follow up with these appointments. 5. Discussed safe driving and no use of smart phone while driving 6. Age-appropriate immunizations were discussed. A tetanus booster is needed every 10 years. Flu vaccine is recommended every year just before the start of the flu season. Shingles vaccine is recommended after age 50 but not all insurances cover it.Pneumonia vaccine is given after age 65 unless there are certain comorbidities for which it is started earlier. 7. Diagnostic labs were discussed. These could include CBC CMP and lipids with fasting blood glucose and insulin levels. Vitamin D and hemoglobin A1c testing might be appropriate. Case discussed with collaborating physician Evan Dunlap who reviewed the assessment and plan. Chart, medications, labs, vital signs reviewed. Dictation was accomplished with the use of [employer] voice recognition software, prone to medical misidentifications and grammatical errors. This is unintentional and the practitioner does try to identify and correct these, but some could still be present. Please do not hesitate to contact practitioner for clarification. All questions answered to patients satisfaction. Patient verbalized understanding of diagnosis and treatments explained. To call sooner prior to next visit it any questions/concerns arise. 03/18/2025 Encounter for examination of blood pressure without abnormal findings (ICD-10 - Z01.30) # Prediabetes: Patient has a hx of prediabetes. Her Hgb A1c from this month 6.0 down to 5.4. On Wegovy. # Chest mass. Going for CT chest March # Chronic back pain. Chiropractor recommend. Bring back to [facility] if no improvement # Encounter for immunization: Patient is requesting flu shot and first dose of Shingrix. Patient has a history of right masectomy, so she cannot receive injections in R arm. Patient seen and examined. Comprehensive discussion was done on the following. 1. Nutrition: It is important to follow a healthy diet based on lots of vegetables and legumes and good fat. Avoid processed food and processed carbohydrates. Learn to prepare your own meals. Learn to read labels and avoid high fructose corn syrup, processed chemicals added to increase shelf life and preprepared meals. Avoid fast foods. Learn to eat slowly and plan meals for a week. Try to count calories and be mindful off daily calorie intake. Get into the habit of keeping an eye on your weight by using an appropriate scale. Learn to log exercise and discussed fitness Apps like [employer] which can help keep log off calories taken versus calories burned. Local food should be preferred. Discussed Dirty Dozen Versus Clean Fifteen. Discussed healthy supplements like fish oil, Tumeric, Curcumin, Melatonin, Resveratrol, Probiotics, Vitamin-D, Alpha-Lipoic acid, Vitamin-D and coconut oil. 2. It is important to exercise regularly. Is a good habit to walk at least 30-45 minutes a day. Gentle weightlifting with standard precautions to protect the back. Finding activity like cycling or hiking and get into the habit of engaging in it. Stretching before and after the exercises important. It is also important to contact me if there are any problems like shortness of breath, chest pain, back pain and joint or muscle pain associated with the exercise. 3. Discussed age appropriate screening guidelines. Colonoscopy needs to start at age 50 with stool for occult blood as appropriate. There is a new test that can test for genetic abnormalities in the stool sample. This would not replace a colonoscopy but could be used as a screening tool for patients who do not want a colonoscopy. We discussed the importance of early detection of colon cancer. 4. Discussed current guidelines with respect to breast examination, mammogram and pap smear for early detection of breast and cervical cancer. Patient advised to follow up with these appointments. 5. Discussed safe driving and no use of smart phone while driving 6. Age-appropriate immunizations were discussed. A tetanus booster is needed every 10 years. Flu vaccine is recommended every year just before the start of the flu season. Shingles vaccine is recommended after age 50 but not all insurances cover it.Pneumonia vaccine is given after age 65 unless there are certain comorbidities for which it is started earlier. 7. Diagnostic labs were discussed. These could include CBC CMP and lipids with fasting blood glucose and insulin levels. Vitamin D and hemoglobin A1c testing might be appropriate. Case discussed with collaborating physician Evan Dunlap who reviewed the assessment and plan. Chart, medications, labs, vital signs reviewed. Dictation was accomplished with the use of [employer] voice recognition software, prone to medical misidentifications [...] Dictation was accomplished with the use of [employer] voice recognition software, prone to medical misidentifications [...] Dictation was accomplished with the use of [employer] voice recognition software, prone to medical misidentifications [...] ID # Chronic back pain. Improved seeing [facility] # Dermatitis: Triamcinolone cream [...] Dictation was accomplished with the use of [employer] voice recognition software, prone to medical misidentifications [...] send to ID # Chronic back pain. [facility] appt 09/16/24. # Dermatitis: Triamcinolone [...] Dictation was accomplished with the use of [employer] voice recognition software, prone to medical misidentifications [...] Dictation was accomplished with the use of [employer] voice recognition software, prone to medical misidentifications [...] Dictation was accomplished with the use of [employer] voice recognition software, prone to medical misidentifications and grammatical errors. This is unintentional and the practitioner does try to identify and correct these, but some could still be present. Please do not hesitate to contact practitioner for clarification. All questions answered to patients satisfaction. Patient verbalized understanding of diagnosis and treatments explained. To call sooner prior to next visit it any questions/concerns arise. 04/29/2025 Encounter for examination of blood pressure without abnormal findings (ICD-10 - Z01.30) # Obesity 04/29/25: BMI 31, Weight 195 lb. Continue Wegovy 1.7 mg subcu weekly. Patient overall doing well. Will add Famotidine 20 mg po daily x 2 weeks. Avoid spicy/greasy food. Likely due to missing 1 dose. # Prediabetes: Patient has a hx of prediabetes. Her Hgb A1c from this month 6.0 down to 5.4. On Wegovy. # Chronic back pain. Chiropractor recommend. Bring back to [facility] if no improvement # Encounter for immunization: Patient is requesting flu shot and first dose of Shingrix. Patient has a history of right masectomy, so she cannot receive injections in R arm. Patient seen and examined. Comprehensive discussion was done on the following. 1. Nutrition: It is important to follow a healthy diet based on lots of vegetables and legumes and good fat. Avoid processed food and processed carbohydrates. Learn to prepare your own meals. Learn to read labels and avoid high fructose corn syrup, processed chemicals added to increase shelf life and preprepared meals. Avoid fast foods. Learn to eat slowly and plan meals for a week. Try to count calories and be mindful off daily calorie intake. Get into the habit of keeping an eye on your weight by using an appropriate scale. Learn to log exercise and discussed fitness Apps like [employer] which can help keep log off calories taken versus calories burned. Local food should be preferred. Discussed Dirty Dozen Versus Clean Fifteen. Discussed healthy supplements like fish oil, Tumeric, Curcumin, Melatonin, Resveratrol, Probiotics, Vitamin-D, Alpha-Lipoic acid, Vitamin-D and coconut oil. 2. It is important to exercise regularly. Is a good habit to walk at least 30-45 minutes a day. Gentle weightlifting with standard precautions to protect the back. Finding activity like cycling or hiking and get into the habit of engaging in it. Stretching before and after the exercises important. It is also important to contact me if there are any problems like shortness of breath, chest pain, back pain and joint or muscle pain associated with the exercise. 3. Discussed age appropriate screening guidelines. Colonoscopy needs to start at age 50 with stool for occult blood as appropriate. There is a new test that can test for genetic abnormalities in the stool sample. This would not replace a colonoscopy but could be used as a screening tool for patients who do not want a colonoscopy. We discussed the importance of early detection of colon cancer. 4. Discussed current guidelines with respect to breast examination, mammogram and pap smear for early detection of breast and cervical cancer. Patient advised to follow up with these appointments. 5. Discussed safe driving and no use of smart phone while driving 6. Age-appropriate immunizations were discussed. A tetanus booster is needed every 10 years. Flu vaccine is recommended every year just before the start of the flu season. Shingles vaccine is recommended after age 50 but not all insurances cover it.Pneumonia vaccine is given after age 65 unless there are certain comorbidities for which it is started earlier. 7. Diagnostic labs were discussed. These could include CBC CMP and lipids with fasting blood glucose and insulin levels. Vitamin D and hemoglobin A1c testing might be appropriate. Case discussed with collaborating physician Evan Dunlap who reviewed the assessment and plan. Chart, medications, labs, vital signs reviewed. Dictation was accomplished with the use of [employer] voice recognition software, prone to medical misidentifications and grammatical errors. This is unintentional and the practitioner does try to identify and correct these, but some could still be present. Please do not hesitate to contact practitioner for clarification. All questions answered to patients satisfaction. Patient verbalized understanding of diagnosis and treatments explained. To call sooner prior to next visit it any questions/concerns arise. Plan Of Treatment Pending Test Test Name Order Date Hemoglobin A1c 12/25/2018 Hemoglobin A1c 10/30/2019 Hemoglobin A1c 04/20/2020 Hemoglobin A1c 01/04/2021 WIL w/Reflex 04/05/2021 Lipid Panel 12/25/2018 Comp. Metabolic Panel (14) 10/30/2019 Comp. Metabolic Panel (14) 04/20/2020 CBC 04/20/2020 CBC 12/25/2018 Bone Density 08/04/2024 Urine Culture and Sensitivity 09/07/2020 Urinalysis 12/25/2018 MRI : Abdomen with and without Contrast 07/24/2023 CBC (COMPLETE BLOOD COUNT) 04/05/2021 COMPREHENSIVE METABOLIC PANEL 04/05/2021 COMPREHENSIVE METABOLIC PANEL 12/25/2018 CRP, HIGH SENSITIVITY 12/25/2018 HEMOGLOBIN A1C 10/03/2021 LIPID PANEL 04/05/2021 LYME C6 ANTIBODY 04/05/2021 SEDIMENTATION RATE 04/05/2021 TSH 04/05/2021 Insulin Level 12/25/2018 LIPID PANEL, STANDARD 02/23/2022 LIPID PANEL, STANDARD 12/04/2022 LIPID PANEL, STANDARD 01/01/2025 LIPID PANEL, STANDARD 08/06/2022 LIPID PANEL, STANDARD 06/16/2024 COMPREHENSIVE METABOLIC PANEL 01/01/2025 COMPREHENSIVE METABOLIC PANEL 06/16/2024 COMPREHENSIVE METABOLIC PANEL 07/09/2023 COMPREHENSIVE METABOLIC PANEL 08/06/2022 COMPREHENSIVE METABOLIC PANEL 02/23/2022 CBC (INCLUDES DIFF/PLT) 08/06/2022 CBC (INCLUDES DIFF/PLT) 07/09/2023 CBC (INCLUDES DIFF/PLT) 06/16/2024 CBC (INCLUDES DIFF/PLT) 01/01/2025 URINALYSIS, COMPLETE 01/01/2025 URINALYSIS, COMPLETE 08/06/2022 HEMOGLOBIN A1c 04/04/2023 HEMOGLOBIN A1c 07/09/2023 HEMOGLOBIN A1c 08/06/2022 HEMOGLOBIN A1c 11/01/2021 HEMOGLOBIN A1c 02/23/2022 HEMOGLOBIN A1c 12/04/2022 HEMOGLOBIN A1c 06/16/2024 VITAMIN B12 07/09/2023 VITAMIN B12 01/01/2025 T4, FREE 08/06/2022 TSH 08/06/2022 TSH 07/09/2023 VITAMIN D,25-OH,TOTAL,IA 01/01/2025 VITAMIN D,25-OH,TOTAL,IA 07/09/2023 VITAMIN D,25-OH,TOTAL,IA 02/23/2022 VITAMIN D,25-OH,TOTAL,IA 08/06/2022 CT Chest W/O Contrast 07/24/2023 Hemoglobin [id number] 01/01/2025 TSH+T3+Free T4+T3 Free 01/01/2025 Next Appt Details Provider Name:DORI TENA, 07/01/2025 08:30:00 AM, [address], [place], [address], Insurance Providers Payer Name Payer Address Payer Phone Subscriber Number Group Number Insured Name Patient Relationship to Insured Coverage Start Date Coverage End Date [facility] [address] [place] [id number] DEZ LANGSTON Self - patient is the insured Medical (General) History Medical History History ICD Code RUE thrombosis Endometriosis N80.9 Back pain at L4-L5 level M54.50 GERD without esophagitis K21.9 Sarcoidosis of lung D86.0 History of breast cancer Z85.3 Herpes simplex B00.9 Pre-diabetes R73.03 Obesity (BMI 30-39.9) E66.9 Abnormal uterine and vaginal bleeding, u nspecified N93.9 Surgical History Surgery Date(Month/Year) wisdom teeth extraction Liver bx Right armthrombectomy 2015 R mastectomy Right VATS, middle lobe 2016
--- OUTSIDE RECORDS SUMMARY | 2025-06-02 08:42 | XMS_ITS | Clinical Summary ---
Author Organization [facility] Address [facility] [employer] [address] [address] Phone Care Team Providers Care Gyroscopic Instrument Tester Name Role Phone Reginaldo Dunlap MD Primary Care Provider Allergies Active Allergy Reactions Criticality Noted Date Comments Nitrofurantoin Monohyd/M-Cryst Rash Low 09/15 Sulfa (Sulfonamide Antibiotics) Hives,Rash Low 08/22 Sulfamethoxazole-Trimethoprim 2021 Medications oxyCODONE 5 mg TbOr Take 5 mg by mouth. 3 Active ondansetron (ZOFRAN) 4 MG tablet 1 tablet Orally twice daily for 20 days 4 Active losartan (COZAAR) 25 MG tablet TAKE 1 TABLET BY MOUTH EVERY DAY FOR 30 DAYS for 90 Active hydrocortisone 2.5 % cream 1 Application. Act kriss calcium carbonate-vitami n D3 1,500 mg (600 mg elemental)-800 units Tab 1 tablet with a meal Orally Once a day for 90 days 4 Active multivitamin-min -iron-FA-vit K (ADULTS MULTIVITAMIN) 18 mg iron-400 mcg-25 mcg Tab 1 tab Orally daily for 30 days 4 Active PERCOCET 5-325 mg per tablet 1 tablet as needed Orally twice daily for 10 days 4 Active predniSONE (DELTASONE) 10 mg tablet pack 4 tab x 2 days 3 tabs x 2 days 2 tabs x 2 days 1 tab x 2 days Orally Once a day for 8 days 4 Active WEGOVY 0.25 mg/0.5 mL subcutaneous pen injection 4 Active JANUVIA 25 mg tablet TAKE 1 TABLET BY MOUTH EVERY DAY FOR 90 DAYS for 90 3 Active triamcinolone acetonide 0.5 % cream 1 Application. 4 Active valACYclovir (VALTREX) 1000 MG tablet TAKE 2 TABLETS BY MOUTH ONCE AT START OF SYMPTOMS, REPEAT IN 12 HOURS (TAKE 4 TABLETS PER EPISODE) 4 Active LORazepam (ATIVAN) 1 MG tablet Take 1 tablet (1 mg total) by mouth once as needed for anxiety (1 pill to take before presenting for next pain cliinic appointment for pain procedure. take tab 1 hr before procedure.). 1 pill to take before presenting for next pain cliinic appointment for pain procedure. take tab 1 hr before procedure. 1 tablet 4 Active tiZANidine (ZANAFLEX) 2 MG tablet Take 1 tablet (2 mg total) by mouth 2 (two) times a day as needed. 60 tablet 2 4 Active Social History Tobacco Use Types Packs/Day Years Used Date Smoking Tobacco: Never Assessed Education Answer Date Recorded Are you interested in more education? Not on annette e 08/06/2024 Are you concerned about learning? Not on file 08/06/2024 No 08/06/2024 No 08/06/2024 Digital Access Answer Date Recorded No 08/06/2024 No 08/06/2024 Reliable internet access at home? Not on file 08/06/2024 Device with a working camera? Not on file Comments Unknown Sex and Gender Information Value Date Recorded Sex Assigned at Female 08/06/2024 12:09 PM EDT Legal Sex Female 12:05 PM EDT Gender Identity Female 08/06/2024 12:09 PM EDT Sexual Orientation Straight 08/06/2024 12 :09 PM EDT Last Filed Vital Signs Vital Sign Reading Time Taken Comments Blood Pressure 163/81 10/27/2024 10:10 AM EST Pulse 71 10/27/2024 10:10 AM EST Temperature 36.3 C (97.3 F) 10/27/2024 9:25 AM EST Respiratory Rate - - Oxygen Saturation 95% 10/27/2024 10:10 AM EST Inhaled Oxygen Concentration - - Weight - - Height - - Body Mass Index - - Plan of Treatment Health Maintenance Due Date Last Done Comments Adult Td,Tdap Booster 1972 CREATININE LEVEL 1972 LIPID PANEL 1972 POTASSIUM LEVEL 1972 DEPRESSION SCREENING 1984 SMOKING Hx and SMOKELESS TOB ACCO SCREENING 1985 HEPATITIS C SCREENING 1990 HIV ONE-TIME SCREENING (18-6 5 YEARS) 1990 PAP SMEAR 1993 MAMMOGRAM 2012 COLOGUARD 2017 COLONOSCOPY 2017 COLORECTAL CANCER SCREENING 2017 FIT TEST 2017 FOBT 2017 SIGMOIDOSCOPY 2017 VIRTUAL COLONOSCOPY 2017 PNEUMOCOCCAL VACCINES (50+ y ears) (1 of 1 - PCV) 2022 ZOSTER VACCINES (1 of 2) 2022 COVID-19 VACCINE ( - 2023-2 5 season) 2024 HEPATITIS A VACCINES Aged Out No long er eligible based on patient's age to complete this topic HIB VACCINES Aged Out No longer eligi ble based on patient's age to complete this topic MENINGOCOCCAL VACCINES (ACWY) Aged Out No longer eligible based on patient's age to complete this topic MENINGOCOCCAL VACCINES (B) Aged Out N o longer eligible based on patient's age to complete this topic Medical Devices Not on file Insurance [employer] [facility] TOTAL CHOICE INDEMNITY [employer] TOTAL CHOICE INDEMNITY [employer] TOTAL CHOICE INDEMNITY [employer]OTAL CHOICE INDEMNITY [employer]OTAL CHOICE INDEMNITY [employer] [facility] TOTAL CHOICE INDEMNITY Care Teams Gyroscopic Instrument Tester Relationship Specialty Start Date End Date Reginaldo Dunlap MD [address] [place] [id number] PCP - General Internal Medicine 08/06/24 Additional Source Comments The information contained in this document represents components of the legal health record. It is not the complete legal health record.[facility]
--- OUTSIDE RECORDS SUMMARY | 2025-06-02 08:42 | XMS_ITS | Patient Health Record ---
Author Organization [facility] Address [address] [place] [address] Care Team Providers Care Leather Case Finisher Name Role Phone Reginaldo Dunlap Primary Care Provider Mahendra Dowd Unavailable [phone] Allergies Allergen (clinical drug ingredient) Drug/Non Drug Allergy documented on EMR Reaction Allergy Type Onset Date Status seasonal (uncoded) Unknown Allergy A ctive povidone-iodine Betadine vomiting Drug Allergy A ctive Biaxin diarrhea Drug Allergy Active Ceftin rash Drug Allergy Active ciprofloxacin Cipro rash Drug Allergy Act kriss erythromycin Erythromycin diarrhea Drug Allergy A ctive Keflex rash Drug Allergy Active Levaquin rash Drug Allergy Active Shrimp Flavor vomiting Drug Allergy Act kriss sulfa rash Drug Allergy Active Reason For Referral No Information Medications Medication SIG (Take, Route, Frequency, Duration) Notes Start Date End Date Status MethylPREDNISolone (Isrrael) 4 MG Oral; Duration: 6 Not-Taking Fluconazole 150 MG Oral; Duration: 1 Not-Taking Ciprofloxacin HCl 0.2 % Otic; Duration: 26 Not-Taking Amoxicillin 875 MG Oral; Duration: 10 Not-Taking Valtrex prn Active metFORMIN HCl 500 MG (Prior Auth: Rx Ref#:[id number]) Oral; Duration: 30 Active Lupron Depot (1-Month) 3.75 MG (Prior Auth: Rx Ref#:[id number]) Intramuscular; Duration: 28 Active Immunizations Vaccine Route Administration Date Status Comme nts Influenza Unknown 07/21/2018 Administered Social History Tobacco Use: Social History Observation Description Date Details (start date - stop date) Former Smoker NA - NA Tobacco Use/Smoking Question Answer Notes Are you a: former smoker When did you stop smoking? 5 years ago Additional Findings: Tobacco Non-User Ex-moderat e cigarette smoker (10-19/day) Alcohol Screen Question Answer Notes Did you have a drink containing alcohol in the p ast year? Yes Points 0 Interpretation Negative Tobacco use other than smoking: Question Answer Notes Are you an other tobacco user? No Problems Problem Type SNOMED Code ICD Code Onset Dates Problem Status W/U Status Risk Notes Problem Type II diabetes mellitus without complication (596075917) Type 2 diabetes mellitus without complications (E11.9) Active confirmed Plan Of Treatment Pending Test Test Name Order Date [id number] Destruction, 11-0303/19/2019 57122-Ylvm Destruction, 11-0304/08/2019 [id number]-Cxwp Destruction, 11-0305/11/2019 73151- Debride <25 sq cm 01/20/2015 85307 I&D ABSCESS- SIMPLE,SINGLE 015 [id number] I&D ABSCESS- SIMPLE,SINGLE 015 Insurance Providers Payer Name Payer Address Payer Phone Subscriber Number Group Number Insured Name Patient Relationship to Insured Coverage Start Date Coverage End Date [employer] [address] [place] [address] [id number] June Tirado Self - patient is the insured Medical (General) History Medical History History ICD Code Chicken pox breast cancer type II diabetes Headaches/Migraines Surgical History Surgery Date(Month/Year) wisdom teeth extraction 1988 Liver biopsy 2002 right middle lobe resection 2015 right arm radial arterial thrombosis 201 6 mastectomy right breast 07/2018 breast implant 09/2018
--- OUTSIDE RECORDS SUMMARY | 2025-06-02 08:42 | XMS_ITS | Clinical Summary ---
Author Organization [facility] Address [address] [place] [address] Phone Care Team Providers Care Immunology Specialist Name Role Phone Reginaldo Dunlap MD Primary Care Provider [phone] Surgical History Surgery Date Site/Laterality Comments WISDOM [...] Td Vaccines (1 - Tdap) 1991 Hepatitis B Vaccines (1 of 3 - 19+ 3-dose series) 1991 Pneumococcal Vaccine: 50+ Years (1 of 2 - PCV) 1991 Zoster Vaccines (1 of 2) 1991 Cervical Cancer Screening: P ap Smear 1993 Colorectal Cancer Screening: Colonoscopy 09/18/2022 HIV Screening 09/18/2022 Hepatitis C Screening 09/18/2022 Social Influencers of Health Screening 09/18/2022 COVID-19 Vaccine (4 - 2023-2 5 season) 2024 01/05/2022, 01/28/2021, 01/07/2021 Depression Screening 10/21/2024 Diabetes: Annual Urine Albumin-Creatinine Ratio (uACR) 11/19/2024 Diabetes: Blood Sugar Contro l Test (HGBA1C) 11/19/2024 Diabetes: Annual GFR (Glomerular Filtration Rate) 03/19/2025 03/19/2024 Influenza Vaccine (#1) 2025 Cholesterol Screening (Lipid Panel) 03/19/2029 03/19/2024 HIB Vaccines Aged Out No longer eligi ble based on patient's age to complete this topic HPV Vaccines Aged Out No longer eligi ble based on patient's age to complete this topic Hepatitis A Vaccines Aged Out No long er eligible based [...] patient's age to complete [place] [address] [facility] Advance Directives Documents on File Type Date Recorded Patient Actuarial Director Expl anation Health Care Decision (hx) 08/14/2016 [...] (hx) 08/14/2016 AD DUMONT DIRECTIVE Care Teams Immunology Specialist Relationship Specialty Start Date End Date Reginaldo Dunlap MD [address] [place] [id number] PCP - General Internal Medicine 11/05/24
== END 2025-06-02 09:02 | disposition home or self-care (01) ==
LOC: HO.HPS 08:30
PROVIDERS: PCP Internal Medicine; Visit Provider Hospitalist
DX: R91.8 Other nonspecific abnormal finding of lung field (principal); D86.9 Sarcoidosis, unspecified; R07.89 Other chest pain; C50.911 Malignant neoplasm of unspecified site of right female breast; Z17.0 Estrogen receptor positive status [ER+]; G47.33 Obstructive sleep apnea (adult) (pediatric); M95.4 Acquired deformity of chest and rib
CPT/HCPCS: 99214

== ENCOUNTER → 2025-06-02 09:07 | Outpatient (BNV) | payer OTHER, SELFPAY | PROVIDERS: PCP Internal Medicine; Visit Provider Radiology Diagnostic Radiology | DX: M47.814 Spondylosis without myelopathy or radiculopathy, thoracic region (principal) | CPT/HCPCS: 71046 ==

== ENCOUNTER 2025-06-16 08:07 | Outpatient (AMB) | payer OTHER, SELFPAY ==
--- OUTSIDE RECORDS SUMMARY | 2025-06-11 08:30 | XMS_ITS | Encounter Summary ---
Author Organization [facility] Address [address] [place] [address] Care Team Providers Care Tape Rules Printing Machine Operator Name Role Phone Reginaldo Dunlap MD Primary Care Provider [phone] Reason for Referral * Imaging (Routine) - Authorized Specialty Diagnoses / Procedures Referred By Lacie jesus Referred To Contact Radiology Diagnoses Chest wall deformity Pulmonary nodules Procedures CT Chest wo Contrast Nathanael Shaw MD [address] [address] Phone: tel: fax: [address] [address] Phone: tel: Referral ID Status Reason Start Date Expiration Date V isits Requested Visits Authorized [id number] Authorized 06/11/2025 06/11/2026 1 1 Reason for Visit * Reason Comments Deformity of Chest and Rib Encounter Details Date Type Department Care Team (Late st Contact Info) Description 06/11/2025 8:30 AM EDT Consult Thoracic Surgery - [place] [address] [id number] Nathanael Shaw MD [address] [address] Chest wall deformity (Primary Dx); Pulmonary nodules Social History Tobacco Use Types Packs/Day Years Used Date Smoking Tobacco: Former Smokeless Tobacco: Never Comments Unknown Sex and Gender Information Value Date Recorded Sex Assigned at Not on file Legal Sex Female 12:14 PM EST Gender Identity Not on file Sexual Orientation Not on file documented as of this encounter Last Filed Vital Signs Vital Sign Reading Time Taken Comments Blood Pressure 140/82 06/11/2025 8:47 AM EDT Pulse 66 06/11/2025 8:47 AM EDT Temperature 37.1 C (98.7 F) 06/11/2025 8:47 AM EDT Respiratory Rate 17 06/11/2025 8:47 AM EDT Oxygen Saturation 100% 06/11/2025 8:47 AM EDT Inhaled Oxygen Concentration - - Weight 86.4 kg (190 lb 6.4 oz) 06/11/2025 8:47 A M EDT Height 170.2 cm (5' 7 ) 06/11/2025 8:47 AM EDT Body Mass Index 29.82 06/11/2025 8:47 AM EDT documented in this encounter Progress Notes * Nathanael Shaw MD - 06/11/2025 8:30 AM EDT NEW PATIENT CONSULTATION I have obtained verbal consent from June Tirado prior to the recording. I have advised June Tirado that she may refuse the recording and require the recording to be turned off at any time during this encounter. Name: June Tirado : 1970 Date of Visit: 06/11/2025 Referring Physician: Edu Hunt MD Primary Care Physician: Reginaldo Dunlap MD Chief Complaint Patient presents with Deformity of Chest and Rib HPI Ms. Tirado is a 55 y.o. female who presents for outpatient consultation regarding the management of chest wall deformity and pulmonary nodules. History of Present Illness The patient is a 55-year-old woman with a history of right-sided breast cancer status post mastectomy and prosthesis, and sarcoidosis, who presents for evaluation of chest wall rib deformity. She reports shortness of breath with activity. She is a former smoker, having quit in 1999 after smoking half a pack per day from the age of 21. She was diagnosed with breast cancer in 2018 and underwent a middle lobe wedge resection in 2016, which was benign. Dr. Hunt identified some spots onher lung, which were initially stable but later doubled in size, leading to a referral to our clinic. The spots were diagnosed as sarcoidosis. Since then, she has been stable, although new spots haveappeared on her left lung. Despite attempts to order a CT scan, her insurance has been declining coverage. Her last CT scan was in 11/2023. She has noticed a lump, which was evaluated by a breast specialist and deemed unrelated to her breast. An ultrasound was ordered by her primary care physician, revealing a palpable lump that was difficult to delineate. An x-ray was performed last week at [facility], where she was informed that her bones appeared to be pressing into her lung and some spinal curvature was noted. She has a history of scoliosis diagnosed before menarche. She experiences pain in certain positions, particularlywhen sitting up or lying down at night, and feels that the lump occasionally enlarges. She is able to manage the pain and is interested in obtaining a CAT scan for further evaluation. PAST SURGICAL HISTORY: - Right-sided mastectomy - Middle lobe wedge resection (2015) SOCIAL HISTORY Marital Status: Tobacco: Former smoker, quit in 1999, smoked 1/2 pack/day starting at age 21 up until that point. Results Imaging - X-ray of the chest: Chest wall rib deformity and curvature of the spine. Past Medical History: Diagnosis Date Chronic back pain 03/13/2022 DX:Chronic back pain Cyst of spleen DX:Cyst of spleen Cyst of spleen DX:Cyst of spleen Fatty liver DX:Fatty liver Fatty liver DX:Fatty liver Gastritis DX:Gastritis Hiatal hernia DX:Hiatal hernia History of breast cancer 03/13/2022 DX:History of breast cancer; COMMENT: S/p mastectomy 2018 Prediabetes 03/13/2022 DX:Prediabetes Pulmonary nodules 10/07/2018 DX:Pulmonary nodules Right upper quadrant pain DX:Right upper quadrant pain Sarcoidosis 08/12/2017 DX:Sarcoidosis Sarcoidosis DX:Sarcoidosis Seasonal allergic rhinitis 02/04/2017 DX:Seasonal allergic rhinitis Sternal pain DX:Sternal pain @ALL@ Current Outpatient Medications Medication Sig Dispense Refill famotidine (PEPCID) 40 mg tablet Take 1 tablet (40 mg total) by mouth 1 (one) time each day. ibuprofen (ADVIL,MOTRIN) 600 mg tablet 1 TABLET EVERY 6 HOURS NEEDED FOR PAIN manwxtqhffjg-ngh-uqtm-FA-vit K (Adults Multivitamin) 18 mg iron-400 mcg-25 mcg tablet 1 tab Orally daily for 30 days Wegovy 1.7 mg/0.75 mL injection pen Zituvio 25 mg tablet Take 1 tablet (25 mg total) by mouth 1 (one) time each day. for 90 days losartan (COZAAR) 25 mg tablet Take 1 tablet (25 mg total) by mouth 1 (one) time each day. for 30 days valACYclovir (VALTREX) 1 gram tablet TAKE 2 TABLETS BY MOUTH ONCE AT START OF SYMPTOMS, REPEAT IN 12 HOURS (TAKE 4 TABLETS PER EPISODE) No current facility-administered medications for this visit. Social History Tobacco Use Smoking status: Former Smokeless tobacco: Never Social History Social History Narrative Not on file No family history on file. Review of Systems General - Negative for: weight loss/gain, fatigue, fever, chills, weakness, difficulty sleeping Head - Negative for: headache, trauma Eyes - Negative for: acute vision change, blurred vision, double vision, eye pain, conjunctival erythema, eyelid pain/swelling/erythema Ears - Negative for: acute change in hearing, tinnitus, ear pain, ear drainage Nose - Negative for: nasal discharge, nosebleed, itching, sinus pain Mouth/Throat - Negative for: sore throat, swollen throat, dry mouth, hoarseness, dysphagia, odynophagia, oral lesions Neck - Negative for: pain, stiffness, swelling, mass/lumps, swollen glands Cardiovascular - Negative for: chest pain/pressure, exertional chest pain, palpitations, lightheadedness, dizziness, orthopnea, extremity edema Respiratory -as above Gastrointestinal - Negative for: abdominal pain, abdominal distention, bloating, nausea, vomiting, early satiety, diarrhea, constipation, BRBPR, melena, poor appetite Genitourinary - Negative for: dysuria, hematura, urinary frequency, urinary urgency, incontinence Musculoskeletal - Negative for: muscle or joint pain, stiffness, back pain, joint swelling or erythema Neurologic - Negative for: dizziness, seizures, weakness, numbness, tingling, tremor, dysarthria, facial droop Hematologic - Negative for: easy bruising, easy bleeding, ecchymosis, petechiae Endocrine - Negative for: polyuriua, polydipsia, heat or cold intolerance Lymphatic - Negative for: swollen nodes, unexplained lumps/bumps in neck/axillae/groin Skin - Negative for: rashes, lumps, itching, dryness, color change, hair/nail changes Psychiatric - Negative for: depression, anxiety, nervousness, stress, memory change, SI/HI Physical Exam Vitals: 06/11/25 0847 BP: (!) 140/82 BP Location: Left arm Patient Position: Sitting BP Cuff Size: Large adult long Pulse: 66 Resp: 17 Temp: 37.1 ??C (98.7 ??F) TempSrc: Temporal SpO2: 100% Weight: 86.4 kg (190 lb 6.4 oz) Height: 1.702 m (67 ) General: Patient is sitting comfortably in no acute distress, well developed, well nourished Head: Normocephalic, atraumatic, symmetric Eyes: Sclera anicteric, eyelids without edema or erythema, +EOMS intact ENT: Oral mucosa and tongue are moist without lesions or exudates Neck: Soft, supple, symmetric, trachea midline, no crepitus, no mass visualized or palpated Cardiovascular: Regular rate and rhythm, no murmur/rubs/gallops, BUE and BLE without edema, no calftenderness bilaterally Respiratory: Lungs CTAB, breathing nonlabored, speaking in full sentences, on room air. No use of accessory muscles. No obvious chest wall abnormality or deformity Gastrointestinal: Soft, non-tender, non-distended, +normoactive bowel sounds. Lymphatic: no cervical, supraclavicular, infraclavicular, or other lymphadenopathy noted Neurological: Alert and oriented x 3, neurologic exam is grossly normal Psychiatric: No agitation, appropriate affect Pathology Reviewed Micro / Labs Reviewed Radiology Reviewed and interpreted by me directly as above including a CT scan of the chest from 01/21/2024 which shows a stable in the right middle lobe from her prior wedge the right breast prosthesis some small scattered pulmonary nodules a protuberant slightly xiphoid process. I personally viewed the following imaging studies, in addition to reviewing the dictated report from the reading radiologist Assessment/Plan Problem List Items Addressed This Visit Chest wall deformity - Primary Relevant Orders CT Chest wo Contrast Pulmonary nodules Relevant Orders CT Chest wo Contrast Assessment & Plan 1. Chest wall deformity. Symptoms and physical examination findings suggest a deformity involving the xiphoid process. A CT scan will be ordered to evaluate the chest wall deformity and pulmonary nodules, given the patient'shistory as a former smoker. The scan will help determine the cause of the symptoms and guide further management. If the CT scan confirms the involvement of the xiphoid process, surgical removal may be considered. The patient reports pain associated with the deformity, which is more prominent in certain positions. 2. Pulmonary nodules. Given the history of smoking and previous findings of lung nodules, continued monitoring is necessary. The CT scan will also be used to follow up on these nodules to assess any changes or new developments. The patient has experienced issues with insurance approval for previous scans, but efforts will be made to obtain approval for this necessary imaging. Risks, benefits, and alternatives of treatment were discussed. The patient understands that the CT scan is essential for evaluating the chest wall deformity and monitoring pulmonary nodules. If the xiphoid process is confirmed as the source of pain, surgical removal is an option, although it may not always alleviate the pain. The patient prefers to proceed with the CT scan to obtain a clearer understanding of the condition before considering further interventions. The CT scan will be ordered under the indications of chest wall deformity and following lung nodules in a former smoker to increase the likelihood of insurance approval. If the scan is approved and completed, the patient will return for follow-up to discuss the results and next steps. Total time spent on date of this encounter: 65 minutes. Reviewing patient's chart, Independently reviewing current/past imaging, Visit with the patient, Counseling and educating patient/family on diagnosis, Discussion of ongoing management, and Documenting clinical information in the patient's medical record Nathanael Shaw MD on 06/11/2025 at 11:26 AM EDT CC: Edu Hunt MD Talal N Khan, MD documented in this encounter Plan of Treatment Upcoming Encounters Date Type Department Care Team (Late st Contact Info) Description 06/30/2025 11:30 AM EDT Appointment [facility] CT Scan [address] [place] [address] Scheduled Orders Name Type Priority Associated Diagnoses Orde r Schedule CT Chest wo Contrast Imaging Routine Chest wall deformity Pulmonary nodules Expected: 06/11/2025, Expires: 06/11/2026 documented as of this encounter Visit Diagnoses Diagnosis Chest wall deformity- Primary Other specified nonteratogenic anomalies Pulmonary nodules Other diseases of lung, not elsewhere classified documented in this encounter Historical Medications * This list may reflect changes made after this encounter. Zituvio 25 mg tablet Take 1 tablet (25 mg total) by mouth 1 (one) time each day. for 90 days 03/30/2025 multivitamin-min- iron-FA-vit K (Adults Multivitamin) 18 mg iron-400 mcg-25 mcg tablet 1 tab Orally daily for 30 days 09/04/2024 famotidine (PEPCID) 40 mg tablet Take 1 tablet (40 mg total) by mouth 1 (one) time each day. 04/29/2025 ibuprofen (ADVIL,MOTRIN) 600 mg tablet 1 TABLET EVERY 6 HOURS NEEDED FOR PAIN 04/30/2025 losartan (COZAAR) 25 mg tablet Take 1 tablet (25 mg total) by mouth 1 (one) time each day. for 30 days Wegovy 1.7 mg/0.75 mL injection pen 06/01/2025 valACYclovir (VALTREX) 1 gram tablet TAKE 2 TABLETS BY MOUTH ONCE AT START OF SYMPTOMS, REPEAT IN 12 HOURS (TAKE 4 TABLETS PER EPISODE) added in this encounter Care Teams Tape Rules Printing Machine Operator Relationship Specialty Start Date End Date Reginaldo Dunlap MD [address] [place] [id number] PCP - General Internal Medicine 11/05/24 documented as of this encounter
--- OUTSIDE RECORDS SUMMARY | 2025-06-16 08:13 | XMS_ITS | Patient Health Record ---
Author Organization [facility] Address [address] [place] [address] Care Team Providers Care Clinical Social Work Therapist Name Role Phone Reginaldo Dunlap Primary Care Provider Mahendra Dowd Unavailable [phone] Allergies Allergen (clinical drug ingredient) Drug/Non Drug [...] metFORMIN HCl 500 MG (Prior Auth: Rx Ref#:[id number]) Oral; Duration: 30 Active Lupron Depot (1-Month) 3.75 MG (Prior Auth: Rx Ref#:[id number]) Intramuscular; Duration: 28 Active Immunizations Vaccine Route [...] Status W/U Status Risk Notes Problem Type 2 diabetes mellitus without complications (E11.9) Active confirmed Plan Of Treatment Pending Test Test Name Order Date 57420-Bvif Destruction, 11-0303/19/2019 08694-Wayk Destruction, 11-0304/08/2019 42503-Megt Destruction, 11-0305/11/2019 05823- Debride <25 sq cm 01/20/2015 [id number] I&D ABSCESS- SIMPLE,SINGLE 015 [id number] I&D ABSCESS- SIMPLE,SINGLE 015 Insurance Providers Payer Name Payer Address Payer Phone Subscriber Number Group Number Insured Name Patient Relationship to Insured Coverage Start Date Coverage End Date [facility] Others [address] [place] [address] [id number] June Tirado Self - patient is the insured Medical (General) History Medical History History ICD Code Chicken pox breast cancer type II diabetes Headaches/Migraines Surgical History Surgery Date(Month/Year) wisdom teeth extraction 1988 Liver biopsy 2002 right middle lobe resection 2015 right arm radial arterial thrombosis 201 6 mastectomy right breast 07/2018 breast implant 09/2018
--- OUTSIDE RECORDS SUMMARY | 2025-06-16 08:13 | XMS_ITS | Encounter Summary ---
Author Organization [facility] Address [address] [place] [address] Care Team Providers Care Enterprise Application Developer Name Role Phone Reginaldo Dunlap MD Primary Care Provider Unavailabl e Encounter Details Date Type Department Care Team Description 03/04/2019 Pt. Non Urgent Medic al Question Pulmonology - [address] [place] [address] Edu Hunt MD Social History Tobacco Use Types Packs/Day Years Used Date Smoking Tobacco: Former Smokeless Tobacco: Never Sex Assigned at Date Recorded Not on file Job Start Date Occupation Industry Not on file Not on file Not on file documented as of this encounter Progress Notes * Jaimee Summers M.A. - 03/04/2019 4:30 PM EDTFrom: June Tirado To: Edu Hunt MD Sent: 03/04/2019 3:27 PM EDT Subject: Dr Hunt ordered a sleep study for me and I need pre authorization [facility], Dr Hunt ordered a sleep study for me on February 24 and the appointment is scheduled for March 17, 2019. I have spoken with the people at the sleep study place and my insurance company. I have been told that I need pre authorization from [employer] (my insurance company). The billing code per the sleep study place is [id number]. The phone number for pre-authorization is [phone]. My member ID with [employer] is: [id number]. The sleep study place said that Dr Hunt must send a new referral to them with the pre-authorization on it. They said this all must happen prior to the appointment or the appointment must be cancelled. They said I have to cancel by March 12 if the pre authorization and new referral aren't done so I do not get charged for the appointment. I called your office on Saturday to relay this information but nothing has been put in motion yet according to Sulema. I was told by your office thatpre authorization was not needed however, per Sulema it definitely is. Can someone please contact me to let me know that this is all set (or not) so that I can cancel the appointment if needed. I canbe reached on my cell phone anytime [phone]. Thank you, June Tirado documented in this encounter Plan of Treatment Not on file documented as of this encounter Visit Diagnoses Not on filedocumented in this encounter Care Teams Enterprise Application Developer Relationship Specialty Start Date End Date Reginaldo Dunlap MD PCP - General Internal Medicine 02/24/19 documented as of this encounter
--- OUTSIDE RECORDS SUMMARY | 2025-06-16 08:13 | XMS_ITS | Clinical Summary ---
Author Organization [facility] Address [address] [place] [address] Phone Care Team Providers Care Routing Equipment Tender Name Role Phone Reginaldo Dunlap MD Primary Care Provider [phone] Allergies Active Allergy Reactions Criticality Noted Date Comments Nitrofurantoin Monohyd/M-Cryst 06/11 Sulfa (Sulfonamide Antibiotics) Rash High 05/22 Medications valACYclovir (VALTREX) 1 gram tablet TAKE 2 TABLETS BY MOUTH ONCE AT START OF SYMPTOMS, REPEAT IN 12 HOURS (TAKE 4 TABLETS PER EPISODE) Active Wegovy 1.7 mg/0.75 mL injection pen 06/01/2025 Activ e losartan (COZAAR) 25 mg tablet Take 1 tablet (25 mg total) by mouth 1 (one) time each day. for 30 days Active ibuprofen (ADVIL,MOTRIN) 600 mg tablet 1 TABLET EVERY 6 HOURS NEEDED FOR PAIN 04/30/2025 Active famotidine (PEPCID) 40 mg tablet Take 1 tablet (40 mg total) by mouth 1 (one) time each day. 04/29/2025 Active multivitamin-mi b-slxk-RR-vit K (Adults Multivitamin) 18 mg iron-400 mcg-25 mcg tablet 1 tab Orally daily for 30 days 09/04/2024 Active Zituvio 25 mg tablet Take 1 tablet (25 mg total) by mouth 1 (one) time each day. 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 Pulmonary nodules 06/11/2025 Encounters Date Type Department Care Team Description 06/11/2025 8:30 AM EDT Consult Thoracic Surgery - [address] [address] Nathanael Shaw MD Chest wall deformity (Primary Dx); Pulmonary nodules 06/09/2025 Telephone Thoracic Surgery - [place] [address] [address] Avis Taylor MA from Last 3 Months Surgical History Surgery Date Site/Laterality Comments WISDOM TOOTH EXTRACTION PROCEDURE: HISTORICAL WISDOM TEETH EXTRACTION OTHER SURGICAL HISTORY PROCEDURE: HISTORY OTHER; COMMENT: liver biopsy MASTECTOMY 2018 PROCEDURE: HISTORICAL MASTECTOMY OTHER SURGICAL HISTORY Right [...] Mass Index 29.82 06/11/2025 8:47 AM EDT Plan of Treatment Upcoming Encounters Date Type Department Care Team (Late st Contact Info) Description 06/30/2025 11:30 AM EDT Appointment [facility] CT Scan [address] [place] [address] Health Maintenance Due Date Last Done Comments [...] Rate) 03/19/2025 03/19/2024 Influenza Vaccine (#1) 2025 07/21/2018 Cholesterol Screening (Lipid Panel) 03/19/2029 03/19/2024 HIB [...] patient's age to complete this topic Insurance [facility] Advance Directives Documents on File Type Date Recorded 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
--- OUTSIDE RECORDS SUMMARY | 2025-06-16 08:14 | XMS_ITS | Encounter Summary ---
Author Organization [facility] Address [address] [place] [address] Care Team Providers Care Loan Administrator Name Role Phone Reginaldo Dunlap MD Primary Care Provider Unavailabl e Reason for Visit * Reason Onset Date Comments Special Procedure 03/02/2022 Encounter Details Date Type Department Care Team Description 03/02/2022 Telephone Gastroenterology - [place] [address] [facility] [address] [place] [address] Dayne Garrison MD [address] [facility] [address] [place] [address] Special Procedure Social History Tobacco Use Types Packs/Day Years Used Date Smoking Tobacco: Former Smokeless Tobacco: Never Sex Assigned at Date Recorded Not on file Job Start Date Occupation Industry Not on file Not on file Not on file documented as of this encounter Miscellaneous Notes * Telephone Encounter - Tanvir Jaime - 03/02/2022 3:14 PM EDT SCHEDULED * Telephone Encounter - Amanda Rome - 03/02/2022 2:26 PM EDT Updated meds and allergies placed in basket * Telephone Encounter - Unique Mishra - 03/02/2022 11:23 AM EDT Received notes from Dr. Reginaldo Dunlap's office, updated charts, and verified insurance.I will give thenotes to Marlee to update medication and allergy lists so the patient may then be scheduled for a colonoscopy. documented in this encounter Plan of Treatment Not on file documented as of this encounter Visit Diagnoses Not on filedocumented in this encounter Care Teams Loan Administrator Relationship Specialty Start Date End Date Reginaldo Dunlap MD PCP - General Internal Medicine 02/24/19 documented as of this encounter
--- OUTSIDE RECORDS SUMMARY | 2025-06-16 08:14 | XMS_ITS | Encounter Summary ---
Author Organization [facility] Address [address] [place] [address] Care Team Providers Care Channel Sales Manager Name Role Phone Reginaldo Dunlap MD Primary Care Provider Unavailabl e Encounter Details Date Type Department Care Team Description 11/05/2023 Pt. Non Urgent Medic al Question Gastroenterology - [address] [place] [address] Patrick Avina PA-C Social History Tobacco Use Types Packs/Day Years Used Date Smoking Tobacco: Former Smokeless Tobacco: Never Sex Assigned at Date Recorded Not on file Job Start Date Occupation Industry Not on file Not on file Not on file documented as of this encounter Plan of Treatment Not on file documented as of this encounter Visit Diagnoses Not on filedocumented in this encounter Care Teams Channel Sales Manager Relationship Specialty Start Date End Date Reginaldo Dunlap MD PCP - General Internal Medicine 02/24/19 documented as of this encounter
--- OUTSIDE RECORDS SUMMARY | 2025-06-16 08:14 | XMS_ITS | Encounter Summary ---
Author Organization [facility] Address [address] [place] [address] Care Team Providers Care Snow Plow Tractor Operator Name Role Phone Reginaldo Dunlap MD Primary Care Provider Unavailabl e Encounter Details Date Type Department Care Team Description 03/09/2022 Transfer Records Medical Records [address] [place] [address] Abstract, Provider Social History Tobacco Use Types Packs/Day Years Used Date Smoking Tobacco: Former Smokeless Tobacco: Never Sex Assigned at Date Recorded Not on file Job Start Date Occupation Industry Not on file Not on file Not on file documented as of this encounter Plan of Treatment Not on file documented as of this encounter Visit Diagnoses Not on filedocumented in this encounter Care Teams Snow Plow Tractor Operator Relationship Specialty Start Date End Date Reginaldo Dunlap MD PCP - General Internal Medicine 02/24/19 documented as of this encounter
--- OUTSIDE RECORDS SUMMARY | 2025-06-16 08:15 | XMS_ITS | Encounter Summary ---
Author Organization [facility] Address [address] [place] [address] Care Team Providers Care Hemodialysis Lab Technician Name Role Phone Reginaldo Dunlap MD Primary Care Provider Unavailabl e Encounter Details Date Type Department Care Team Description 12/18/2023 Orders Only Gastroenterology - [address] [place] [phone] Patrick Avina PA-C Cyst of spleen Social History Tobacco Use Types Packs/Day Years Used Date Smoking Tobacco: Former Smokeless Tobacco: Never Sex Assigned at Date Recorded Not on file Job Start Date Occupation Industry Not on file Not on file Not on file documented as of this encounter Plan of Treatment Not on file documented as of this encounter Procedures Procedure Name Priority Date/Time Associated Diagnosis Comments MRI ABD W/WO CONTRAST Routine 11/28/2023 Cyst of spleen documented in this encounter Results * MRI ABD W/WO CONTRAST (11/28/2023) Patrick Avina PA-C MRI documented in this encounter Visit Diagnoses Diagnosis Cyst of spleen Other diseases of spleen documented in this encounter Care Teams Hemodialysis Lab Technician Relationship Specialty Start Date End Date Reginaldo Dunlap MD PCP - General Internal Medicine 02/24/19 documented as of this encounter
--- OUTSIDE RECORDS SUMMARY | 2025-06-16 08:15 | XMS_ITS | Encounter Summary ---
Author Organization [facility] Address [address] [place] [address] Care Team Providers Care Business Information Analyst Name Role Phone Reginaldo Dunlap MD Primary Care Provider Unavailabl e Encounter Details Date Type Department Care Team Description 05/25/2022 Release of Information Medical Records [address] [place] [id number] Abstract, Provider Social History Tobacco Use Types Packs/Day Years Used Date Smoking Tobacco: Former Smokeless Tobacco: Never Sex Assigned at Date Recorded Not on file Job Start Date Occupation Industry Not on file Not on file Not on file COVID-19 Exposure Response Date Recorded In the last 10 days, have yo u been in contact with someone who was confirmed or suspected to have Coronavirus/COVID-19? No / Unsure 05/17/2022 12:55 PM EDT documented as of this encounter Plan of Treatment Not on file documented as of this encounter Visit Diagnoses Not on filedocumented in this encounter Care Teams Business Information Analyst Relationship Specialty Start Date End Date Reginaldo Dunlap MD PCP - General Internal Medicine 02/24/19 documented as of this encounter
--- OUTSIDE RECORDS SUMMARY | 2025-06-16 08:15 | XMS_ITS | Encounter Summary ---
Author Organization [facility] Address [address] [place] [address] Care Team Providers Care Wire Rope Fabrication Supervisor Name Role Phone Reginaldo Dunlap MD Primary Care Provider Unavailabl e Encounter Details Date Type Department Care Team Description 06/11/2024 Telephone Gastroenterology - [place] [address] [facility] [address] [place] [phone] Patrick Avina PA-C Social History Tobacco Use Types Packs/Day Years Used Date Smoking Tobacco: Former Smokeless Tobacco: Never Sex Assigned at Date Recorded Not on file Job Start Date Occupation Industry Not on file Not on file Not on file documented as of this encounter Miscellaneous Notes * Telephone Encounter - Patrick Avina PA-C - 06/11/2024 9:24 AM EDT Please let patient know that the test that they were not covering is something that I do not order.If you would check with the lab to see if this advanced lipoprotein LDL lab is drawn if the regularLDL is too high then this was started because of the high LDL however this is not something that I normally order so I do not know what else we can do to help the patient in the future. Will review when I get back to the office. documented in this encounter Plan of Treatment Not on file documented as of this encounter Visit Diagnoses Not on filedocumented in this encounter Care Teams Wire Rope Fabrication Supervisor Relationship Specialty Start Date End Date Reginaldo Dunlap MD PCP - General Internal Medicine 02/24/19 documented as of this encounter
--- OUTSIDE RECORDS SUMMARY | 2025-06-16 08:15 | XMS_ITS | Encounter Summary ---
Author Organization [facility] Address [address] [place] [address] Care Team Providers Care Saddle Stitcher Name Role Phone Reginaldo Dunlap MD Primary Care Provider Unavailabl e Encounter Details Date Type Department Care Team Description 08/27/2022 [facility] Medical Records [address] [place] [address] Dayne Garrison MD [address] [place] [address] [address] [place] [address] Social History Tobacco Use Types Packs/Day Years Used Date Smoking Tobacco: Former Smokeless Tobacco: Never Sex Assigned at Date Recorded Not on file Job Start Date Occupation Industry Not on file Not on file Not on file documented as of this encounter Plan of Treatment Not on file documented as of this encounter Visit Diagnoses Not on filedocumented in this encounter Care Teams Saddle Stitcher Relationship Specialty Start Date End Date Reginaldo Dunlap MD PCP - General Internal Medicine 02/24/19 documented as of this encounter
--- OUTSIDE RECORDS SUMMARY | 2025-06-16 08:15 | XMS_ITS | Encounter Summary ---
Author Organization [facility] Address [address] [place] [address] Care Team Providers Care Tie Layer Name Role Phone Reginaldo Dunlap MD Primary Care Provider Unavailabl e Encounter Details Date Type Department Care Team Description 02/13/2024 Telephone Gastroenterology - [place] [address] [facility] [address] [place] [phone] Patrick Avina PA-C Social History Tobacco Use Types Packs/Day Years Used Date Smoking Tobacco: Former Smokeless Tobacco: Never Sex Assigned at Date Recorded Not on file Job Start Date Occupation Industry Not on file Not on file Not on file documented as of this encounter Miscellaneous Notes * Telephone Encounter - Marzena Putnam - 02/13/2024 10:19 AM EDT Mailed letter to remind patient to have fasting labs and ultrasound. * Telephone Encounter - Patrick Avina PA-C - 02/13/2024 8:12 AM EDT Patient has fatty liver and needs repeat labs and ultrasound fasting and we will be in touch. Please remind patient that the labs are just as important as the ultrasound is to follow her liver disease. documented in this encounter Plan of Treatment Scheduled Orders Name Type Priority Associated Diagnoses Orde r Schedule CHG BLOOD COUNT COMPLETE AUTO&AUTO DIFRNTL WBC Lab Routine Fatty liver Expected: 02/13/2024, Expires: 02/12/2025 CHG LIPID PANEL Lab Routine Fatty liver Expected: 02/13/2024, Expires: 02/12/2025 CHG COMPREHENSIVE METABOLIC PANEL Lab Routine Fatty liver Expected: 02/13/2024, Expires: 02/12/2025 FIBROSURE Lab Routine Fatty liver Expected: 02/13/2024, Expires: 02/12/2025 documented as of this encounter Visit Diagnoses Diagnosis Fatty liver- Primary Other chronic nonalcoholic liver disease documented in this encounter Care Teams Tie Layer Relationship Specialty Start Date End Date Reginaldo Dunlap MD PCP - General Internal Medicine 02/24/19 documented as of this encounter
--- OUTSIDE RECORDS SUMMARY | 2025-06-16 08:15 | XMS_ITS | Clinical Summary ---
Author Organization [facility] Address [facility] [employer] [address] [address] Phone Care Team Providers Care Musical String Maker Name Role Phone Reginaldo Dunlap MD [...] topic Medical Devices Not on file Insurance [employer] [facility] TOTAL CHOICE INDEMNITY [employer] TOTAL CHOICE INDEMNITY [employer] TOTAL CHOICE INDEMNITY [employer] TOTAL CHOICE INDEMNITY [employer] TOTAL CHOICE INDEMNITY [employer] [facility] TOTAL CHOICE INDEMNITY Care Teams Musical String Maker Relationship Specialty Start Date End Date Reginaldo Dunlap MD [address] [place] [id number] PCP - General Internal Medicine 08/06/24 Additional Source Comments The information contained in this document represents components of the legal health record. It is not the complete legal health record.[facility]
--- OUTSIDE RECORDS SUMMARY | 2025-06-16 08:15 | XMS_ITS | Encounter Summary ---
Author Organization [facility] Address [address] [place] [address] Care Team Providers Care Record Press Tender Name Role Phone Reginaldo Dunlap MD Primary Care Provider Unavailabl e Encounter Details Date Type Department Care Team Description 08/30/2022 Orders Only Medical Records [address] [place] [address] Dayne Garrison MD [address] [place] [address] [address] [place] [address] Social History Tobacco Use Types Packs/Day Years Used Date Smoking Tobacco: Former Smokeless Tobacco: Never Sex Assigned at Date Recorded Not on file Job Start Date Occupation Industry Not on file Not on file Not on file documented as of this encounter Plan of Treatment Not on file documented as of this encounter Procedures Procedure Name Priority Date/Time Associated Diagnosis Comments OUTSIDE PATHOLOGY Routine 08/29/2022 documented in this encounter Results * OUTSIDE PATHOLOGY (08/29/2022) Dayne Garrison MD OUTSIDE LAB documented in this encounter Visit Diagnoses Not on filedocumented in this encounter Care Teams Record Press Tender Relationship Specialty Start Date End Date Reginaldo Dunlap MD PCP - General Internal Medicine 02/24/19 documented as of this encounter
--- OUTSIDE RECORDS SUMMARY | 2025-06-16 08:16 | XMS_ITS | Encounter Summary ---
Author Organization [facility] Address [address] [place] [address] Care Team Providers Care Maintenance Of Way Clerk Name Role Phone Chao Contreras MD Primary Care Provider Unavailable Reginaldo Dunlap MD Primary Care Provider Unavailabl e Encounter Details Date Type Department Care Team Description 09/04/2017 Transfer Records Medical Records [address] [place] [id number] Abstract, Provider Social History Tobacco Use Types Packs/Day Years Used Date Smoking Tobacco: Former Sex Assigned at Date Recorded Not on file Job Start Date Occupation Industry Not on file Not on file Not on file documented as of this encounter Plan of Treatment Not on file documented as of this encounter Visit Diagnoses Not on filedocumented in this encounter Care Teams Maintenance Of Way Clerk Relationship Specialty Start Date End Date Chao Contreras MD PCP - General Internal Medicine 09/02/1702/23 Reginaldo Dunlap MD PCP - General Internal Medicine 02/24/19 documented as of this encounter
--- OUTSIDE RECORDS SUMMARY | 2025-06-16 08:16 | XMS_ITS ---
Dictation was accomplished with the use of Yodle voice recognition software, prone to medical misidentifications [...] log exercise and discussed fitness Apps like [employer] which can help keep log off calories [...] Dictation was accomplished with the use of Yodle voice recognition software, prone to medical misidentifications [...] log exercise and discussed fitness Apps like [employer] which can help keep log off calories [...] Dictation was accomplished with the use of Yodle voice recognition software, prone to medical misidentifications [...] log exercise and discussed fitness Apps like [employer] which can help keep log off calories [...] Dictation was accomplished with the use of Yodle voice recognition software, prone to medical misidentifications [...] next visit it any questions/concerns arise. 06/16/2024 Prediabetes (ICD-10 - R73.03) # Prediabetes: [...] ID # Chronic back pain. Has [facility] pain mangement, as well as neurosurgery. Will refer to [facility]. Case discussed with collaborating physician France Dunlap who reviewed the assessment and plan. Chart, medications, labs, vital signs reviewed. Dictation was accomplished with the use of Yodle voice recognition software, prone to medical misidentifications [...] ID # Chronic back pain. Has seen [facility] pain mangement, as well as neurosurgery. Will refer to [facility]. Case discussed with collaborating physician France Dunlap who reviewed the assessment and plan. Chart, medications, labs, vital signs reviewed. Dictation was accomplished with the use of Yodle voice recognition software, prone to medical misidentifications [...] ID # Chronic back pain. Has seen [facility] pain mangement, as well as neurosurgery. Will refer to [facility]. Case discussed with collaborating physician France Dunlap who reviewed the assessment and plan. Chart, medications, labs, vital signs reviewed. Dictation was accomplished with the use of Yodle voice recognition software, prone to medical misidentifications [...] log exercise and discussed fitness Apps like [employer] which can help keep log off calories [...] Dictation was accomplished with the use of Yodle voice recognition software, prone to medical misidentifications [...] log exercise and discussed fitness Apps like [employer] which can help keep log off calories [...] Dictation was accomplished with the use of Yodle voice recognition software, prone to medical misidentifications [...] Dictation was accomplished with the use of Yodle voice recognition software, prone to medical misidentifications [...] Dictation was accomplished with the use of Yodle voice recognition software, prone to medical misidentifications [...] Dictation was accomplished with the use of Yodle voice recognition software, prone to medical misidentifications [...] Dictation was accomplished with the use of Yodle voice recognition software, prone to medical misidentifications [...] send to ID # Chronic back pain. [facility] appt 09/16/24. # Dermatitis: Triamcinolone cream [...] Dictation was accomplished with the use of Yodle voice recognition software, prone to medical misidentifications [...] ID # Chronic back pain. Has seen [facility] pain mangement, as well as neurosurgery. Will refer to [facility]. Will do a prednisone [...] Dictation was accomplished with the use of Yodle voice recognition software, prone to medical misidentifications [...] Dictation was accomplished with the use of Yodle voice recognition software, prone to medical misidentifications [...] Dictation was accomplished with the use of Yodle voice recognition software, prone to medical misidentifications [...] ID # Chronic back pain. Improved seeing [facility] # Dermatitis: Triamcinolone cream [...] Dictation was accomplished with the use of Yodle voice recognition software, prone to medical misidentifications [...] Dictation was accomplished with the use of Yodle voice recognition software, prone to medical misidentifications [...] Dictation was accomplished with the use of Yodle voice recognition software, prone to medical misidentifications [...] log exercise and discussed fitness Apps like [employer] which can help keep log off calories [...] Dictation was accomplished with the use of Yodle voice recognition software, prone to medical misidentifications [...] log exercise and discussed fitness Apps like [employer] which can help keep log off calories [...] Dictation was accomplished with the use of Yodle voice recognition software, prone to medical misidentifications [...] log exercise and discussed fitness Apps like [employer] which can help keep log off calories [...] Dictation was accomplished with the use of Yodle voice recognition software, prone to medical misidentifications [...] log exercise and discussed fitness Apps like [employer] which can help keep log off calories [...] Dictation was accomplished with the use of Yodle voice recognition software, prone to medical misidentifications [...] Dictation was accomplished with the use of Yodle voice recognition software, prone to medical misidentifications [...] Dictation was accomplished with the use of Yodle voice recognition software, prone to medical misidentifications [...] Dictation was accomplished with the use of Yodle voice recognition software, prone to medical misidentifications [...] Dictation was accomplished with the use of Yodle voice recognition software, prone to medical misidentifications [...] Dictation was accomplished with the use of Yodle voice recognition software, prone to medical misidentifications [...] Dictation was accomplished with the use of Yodle voice recognition software, prone to medical misidentifications [...] log exercise and discussed fitness Apps like [employer] which can help keep log off calories [...] Dictation was accomplished with the use of Yodle voice recognition software, prone to medical misidentifications [...] Test Test Name Order Date Hemoglobin A1c 04/20/2020 Hemoglobin A1c 01/04/2021 Hemoglobin A1c 10/30/2019 Hemoglobin A1c 12/25/2018 WIL w/Reflex 04/05/2021 Lipid Panel 12/25/2018 Comp. [...] 04/05/2021 Insulin Level 12/25/2018 LIPID PANEL, STANDARD 06/16/2024 LIPID PANEL, STANDARD 01/01/2025 LIPID PANEL, STANDARD 12/04/2022 LIPID PANEL, STANDARD 02/23/2022 LIPID PANEL, STANDARD 08/06/2022 COMPREHENSIVE METABOLIC PANEL 06/16/2024 COMPREHENSIVE METABOLIC PANEL 08/06/2022 COMPREHENSIVE METABOLIC PANEL 07/09/2023 COMPREHENSIVE METABOLIC PANEL 02/23/2022 COMPREHENSIVE METABOLIC PANEL 01/01/2025 CBC (INCLUDES DIFF/PLT) 01/01/2025 CBC (INCLUDES DIFF/PLT) 07/09/2023 CBC (INCLUDES DIFF/PLT) 08/06/2022 CBC (INCLUDES DIFF/PLT) 06/16/2024 URINALYSIS, COMPLETE 08/06/2022 URINALYSIS, COMPLETE 01/01/2025 HEMOGLOBIN A1c 12/04/2022 HEMOGLOBIN A1c 04/04/2023 HEMOGLOBIN A1c 07/09/2023 HEMOGLOBIN A1c 06/16/2024 HEMOGLOBIN A1c 08/06/2022 HEMOGLOBIN A1c 11/01/2021 HEMOGLOBIN A1c 02/23/2022 VITAMIN B12 07/09/2023 VITAMIN B12 01/01/2025 T4, FREE 08/06/2022 TSH 08/06/2022 TSH 07/09/2023 VITAMIN D,25-OH,TOTAL,IA 07/09/2023 VITAMIN D,25-OH,TOTAL,IA 02/23/2022 VITAMIN D,25-OH,TOTAL,IA 08/06/2022 VITAMIN D,25-OH,TOTAL,IA 01/01/2025 CT Chest W/O Contrast 07/24/2023 Hemoglobin [id number] 01/01/2025 TSH+T3+Free T4+T3 Free 01/01/2025 Next Appt Details Provider Name:DORI TENA, 07/01/2025 08:30:00 AM, [address], [place], [address], Insurance Providers Payer Name Payer Address Payer Phone Subscriber Number Group Number Insured Name Patient Relationship to Insured Coverage Start Date Coverage End Date [facility] [address] [place] [address] [phone] [id number] DEZ YOU Self - patient is the insured Medical [...] R mastectomy Right VATS, middle lobe 2016 Patient Health Record Created on: June 16, 2025 DEZ YOU : 1970 Sex: Female Author Organization [facility] [address] Address [address] [place] [address] Care Team Providers 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 Metabolic Panel (14)-3 Reviewed date:07/30/2024 08:34:41 AM Interpretation: Performing Lab:[facility], [facility], Phone - [phone], Director - MDJodry Notes/Report: Glucose 146 70-99 mg/dL BUN 16 [...] IU/L ALT (SGPT) 26 0-32 IU/L Lipid Panel-[id number] Reviewed date:07/30/2024 08:34:41 AM Interpretation: Performing Lab:[facility], [address] [place], [place], Phone - [phone], Director - MDJodry Notes/Report: Cholesterol, Total 209 100-199 mg/dL Triglycerides 113 0-149 mg/dL HDL Cholesterol 40 >39 mg/dL VLDL Cholesterol Gonzalo 21 5-40 mg/dL LDL Chol Calc (NIH) 148 0-99 mg/dL CBC With Differential/Platel et-[id number] Reviewed date:07/30/2024 08:34:41 AM Interpretation: Performing Lab:[facility], [address] [facility], [place], Phone - [phone], Director - Galina Notes/Report: WBC 5.6 3.4-10.8 [...] Immature Grans (Abs) 0.0 0.0-0.1 x10E3/uL Hemoglobin [id number] Reviewed date:07/30/2024 08:34:41 AM Interpretation: Performing Lab:[facility], [address] [facility], [place], Phone - [phone], Director - [place]ina Notes/Report: Hemoglobin A1c 6.3 4.8-5.6 % . Prediabetes: 5.7 - 6.4 Diabetes: >6.4 Glycemic control for adults with diabetes: <7.0 US ABDOMEN LIMITED Reviewed date:11/20/2024 09:03:07 AM Interpretation: Performing Lab: Notes/Report: Note See Note [facility], a member of [employer] Patient Name: DEZ YOU Date of : 1970 Reason for Exam: fatty liver Exam Date: 11/19/2024 [id number] EST Report Status: Final Ordering Provider: FANNY [...] Signed Date: 025 09:33 ET Workstation ID: [id number] Transcribed By: Self Edit Transcribed Date: 11/19/2024 09:29 ET [facility] Dexa Axial Skeleton Reviewed date:08/17/2024 08:10:33 AM Interpretation: Performing Lab: Notes/Report: Original Ordering Provider: DORI TENA PA-C (EMERY) [facility] TSH+T3+Free T4+T3 Free Reviewed date:03/17/2025 08:26:10 AM Interpretation: Performing Lab:[facility], [address], [place], Phone - [phone], Director - Galina Notes/Report: TSH-ICMA 2.3 Reference Range: Non- Adult 0.450-4.500 First Trimester 0.100-4.000 Second Trimester 0.200-4.000 Third Trimester 0.300-4.500 Triiodothyronine (T-3), Serum 121 Reference Range: Adults: 55 - 170 Free T-3 3.5 Reference Range: >=20y: 2.0 - 4.4 Free T4 by Dialysis/Quality Control Coordinator 1.3 This test was developed and its performance characteristics determined by [facility]. It has not been cleared or approved by the Food and Drug Administration. Reference Range: Pubertal Children and Adults: 0.8 - 1.7 Comp. Metabolic Panel (14)-3 98497 Reviewed date:03/17/2025 08:26:10 AM Interpretation: Performing Lab:[facility], [address] [place] [address], Phone - [phone], Director - [facility] Notes/Report: Glucose 100 70-99 mg/dL BUN 17 [...] IU/L ALT (SGPT) 15 0-32 IU/L Lipid Panel-[id number] Reviewed date:03/17/2025 08:26:10 AM Interpretation: Performing Lab:[facility], [address] [place] [address], Phone - [phone], Director - Jeannedry Notes/Report: Cholesterol, Total 205 100-199 mg/dL Triglycerides 92 0-149 mg/dL HDL Cholesterol 40 >39 mg/dL VLDL Cholesterol Gonzalo 17 5-40 mg/dL LDL Chol Calc ([facility]) 148 0-99 mg/dL Vitamin D, 85-Sdmezth-[id number] Reviewed date:03/17/2025 08:25:55 AM Interpretation: Performing Lab:[facility], [address] [facility], Phone - [phone], Director - Paulettey Notes/Report: Vitamin D, 25-Hydroxy 38.9 30.0-100.0 ng/mL Vitamin D deficiency has been defined by the [place] of Medicine and an Endocrine Society practice guideline as a level of serum 25-OH vitamin D less than 20 ng/mL (1,2). The Endocrine Society went on to further define vitamin D insufficiency as a level between 21 and 29 ng/mL (2). 1. IOM ([place] of Medicine). 2010. Dietary reference intakes for calcium and D. [place]: The National Academies Press. 2. Diana MF, Lia BENITEZ, Debo KRUEGER, et al. Evaluation, treatment, and prevention of vitamin D deficiency: an Endocrine Society clinical practice guideline. JCEM. 2010; 96(7):1911-30. CBC With Differential/Platel et-[id number] Reviewed date:03/17/2025 08:26:10 AM Interpretation: Performing Lab:[facility] [place], [address] [place] [address], Phone - [phone], Director - [place] Notes/Report: WBC 6.7 3.4-10.8 [...] Immature Grans (Abs) 0.0 0.0-0.1 x10E3/uL Urinalysis, Complete-[id number] Reviewed date:03/17/2025 08:26:10 AM Interpretation: Performing Lab:[facility], [address] [place] [address], Phone - [phone], Director - [place] Notes/Report: Specific [place] 1.024 1.005-1.030 pH 5.5 5.0-7.5 Urine-Color Yellow [...] seen /lpf Bacteria Few None seen/Few Vitamin [id number] Reviewed date:03/17/2025 08:25:55 AM Interpretation: Performing Lab:[facility] [place], [address] [place] [address], Phone - [phone], Director - [place] Notes/Report: Vitamin B12 105 732-3299 pg/mL Hemoglobin [id number] Reviewed date:03/17/2025 08:26:10 AM Interpretation: Performing Lab:[facility] [place], [address] [place] [address], Phone - [phone], Director - [place] Notes/Report: Hemoglobin A1c 5.4 4.8-5.6 % . Prediabetes: 5.7 - 6.4 Diabetes: >6.4 Glycemic control for adults with diabetes: <7.0 Comp. Metabolic Panel (14)-3 13653 Reviewed date:11/13/2024 07:58:20 AM Interpretation: Performing Lab:[facility] [place], [address] [place] [address], Phone - [phone], Director - [place] Notes/Report: Glucose 111 70-99 [...] IU/L ALT (SGPT) 16 0-32 IU/L Lipid Panel-[id number] Reviewed date:11/13/2024 07:58:25 AM Interpretation: Performing Lab:[facility] [place], [address] [place] [address], [place], Phone - [phone], Director - MDClaude Notes/Report: Cholesterol, Total 202 100-199 mg/dL Triglycerides 87 0-149 mg/dL HDL Cholesterol 44 >39 mg/dL VLDL Cholesterol Gonzalo 16 5-40 mg/dL LDL Chol Calc (NIH) 142 0-99 mg/dL CBC With Differential/Platel et-[id number] Reviewed date:11/13/2024 07:58:41 AM Interpretation: Performing Lab:[facility] [place], [address] [facility], [place], Phone - [phone], Director - MDClaude Notes/Report: WBC 9.1 3.4-10.8 x10E3/uL RBC 4.78 [...] Immature Grans (Abs) 0.0 0.0-0.1 x10E3/uL Hemoglobin [id number] Reviewed date:11/13/2024 07:58:14 AM Interpretation: Performing Lab:[facility], [address], [place], Phone - [phone], Director - [place] Notes/Report: Hemoglobin A1c 6.0 4.8-5.6 % . Prediabetes: 5.7 - 6.4 Diabetes: >6.4 Glycemic control for adults with diabetes: <7.0 Reason For Referral Reason low back pain, evalu ate and treat Diagnosis 1 Chronic pain syndrom e (G89.4) Referral Organization [facility] [address] Referring Provider First Name DORI Referring Provider Last Name MALLIKA Referring Provider Speciality Internal M edicine Referred Provider Specialty Pain Medicin e Clinical Notes Jose De Jesus Jaimes 05/22 09:26:20 AM > faxed pt info to [facility] pain medicine. 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 working in [employer] Tob: Former Patient working in [employer] g Patient working in [employer] Patient working in [employer] Patient working in [employer] Patient working in [employer] Tob: Former Patient working in [employer] Tob: Former (years) ETOH: Socially Patient working in [employer] Tob: Former (years) ETOH: Socially Patient working in [employer] Tob: Former (years) ETOH: 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 [address] [place] [address] 06/16/2024 DORI MALLIKA Prediabetes R73.03 ; Obesity (BMI 30.0-34.9) E66.9 and Lumbar back pain M54.[address] [facility] [address] [place] [address] 08/04/2024 DORI MALLIKA Prediabetes R73.03 ; Obesity (BMI 30.0-34.9) E66.9 and Lumbar back pain M54.[address] [address] [place] [address] 09/04/2024 DORI MALLIKA Prediabetes R73.03 ; Obesity (BMI 30.0-34.9) E66.9 ; Lumbar back pain M54.50 ; Encounter for immunization Z23 ; Dermatitis L30.9 and Osteopenia of foot, unspecified laterality M85.[address] [facility] [address] [place] [address] 10/01/2024 DORI MALLIKA Obesity (BMI 30.0-34 .9) E66.9 ; BMI 35.0-35.9,adult Z68.35 ; Prediabetes R73.03 and Lumbar back pain M54.[address] [address] [place] [address] 11/17/2024 DORI MALLIKA Obesity (BMI 30.0-34 .9) E66.9 ; BMI 33.0-33.9,adult Z68.33 ; Prediabetes R73.03 ; Lumbar back pain M54.50 and Hyperlipidemia E78.[address] [facility] [address] [place], [place] 01/01/2025 DORI MALLIKA Obesity (BMI 30.0-34 .9) E66.9 ; BMI 31.0-31.9,adult Z68.31 ; Prediabetes R73.03 ; Lumbar back pain M54.50 and Hyperlipidemia E78.[address] [facility] [address] [place], [place] 02/10/2025 DORI MALLIKA Obesity (BMI 30.0-34 .9) E66.9 ; Xiphoid prominence R29.898 ; BMI 31.0-31.9,adult Z68.31 ; Prediabetes R73.03 ; Lumbar back pain M54.50 and Hyperlipidemia E78.[address] [facility] [address] [place], [place] 03/18/2025 DORI TENA Annual physical exam Z00.00 ; Type 2 diabetes mellitus with hyperglycemia E11.65 ; Obesity (BMI 30.0-34.9) E66.9 ; Lumbar back pain M54.50 and Encounter for examination of blood pressure without abnormal findings Z01.[address] [facility] [address] [place], [place] 04/29/2025 DORI MALLIKA Obesity (BMI 30.0-34 .9) E66.9 ; BMI 31.0-31.9,adult Z68.31 ; Type 2 diabetes mellitus with hyperglycemia E11.65 ; GERD (gastroesophageal reflux disease) K21.9 ; Lumbar back pain M54.50 and Encounter for examination of blood pressure without abnormal findings Z01.[address] [facility] [address] [place], [place] 08/21/2024 DORI MALLIKA [facility] [address] [place], [place] 09/15/2024 EDDIE DUNLAP [facility] [address] [address] 10/15/2024 DORI [address]ALLIKA [facility] [address] [place], [place] 11/11/2024 DORI MALLIKA [facility] [address] [address] 12/08/2024 DORI MALLIKA [facility] [address] [address] 12/25/2024 DORI MALLIKA [facility] [address] [address] 01/11/2025 DORI MALLIKA [facility] [address] [address] 02/01/2025 DORI MALLIKA [facility] [address] [place] [address] 02/10/2025 DORI MALLIKA [facility] [address] [address] 03/08/2025 DORI MALLIKA [facility] [address] [address] 04/06/2025 DORI MALLIKA [facility] [address] [address] 04/14/2025 DORI MALLIKA [facility] [address] [address] 04/29/2025 DORI MALLIKA Assessments Encounter Date Diagnosis (ICD Code) Assessment Notes Treatment Notes Treatment Clinical Notes Section Notes 08/04/2024 Prediabetes (ICD-10 - R73.03) # Prediabetes: [...] ID # Chronic back pain. [facility] seen [facility] pain mangement, as well as neurosurgery. Will refer to [facility]. Will do a prednisone [...] Dictation was accomplished with the use of Yodle voice recognition software, prone to medical misidentifications [...] ID # Chronic back pain. Has seen [facility] pain mangement, as well as neurosurgery. Will refer to [facility]. Will do a prednisone [...] Dictation was accomplished with the use of Yodle voice recognition software, prone to medical misidentifications [...] Dictation was accomplished with the use of [employer] voice recognition software, prone to medical misidentifications [...] Dictation was accomplished with the use of [employer]od[employer] voice recognition software, prone to medical misidentifications [...] send to ID # Chronic back pain. [facility] appt 09/16/24. # Dermatitis: Triamcinolone cream [...] Dictation was accomplished with the use of [employer]od[employer] voice recognition software, prone to medical misidentifications [...] send to ID # Chronic back pain. [facility] appt 09/16/24. # Dermatitis: Triamcinolone cream [...] Dictation was accomplished with the use of Dragon voice recognition software, prone to medical misidentifications [...] Dictation was accomplished with the use of Yodle voice recognition software, prone to medical misidentifications [...] Dictation was accomplished with the use of [employer] voice recognition software, prone to medical misidentifications [...] Dictation was accomplished with the use of Yodle voice recognition software, prone to medical misidentifications [...] Dictation was accomplished with the use of [employer]od[employer] voice recognition software, prone to medical misidentifications [...] Dictation was accomplished with the use of [employer]od[employer] voice recognition software, prone to medical misidentifications [...] Dictation was accomplished with the use of Yodle voice recognition software, prone to medical misidentifications [...] log exercise and discussed fitness Apps like [employer] which can help keep log off calories [...]
--- OUTSIDE RECORDS SUMMARY | 2025-06-16 08:16 | XMS_ITS | Encounter Summary ---
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 No / Unsure 06/07/2022 8:16 AM EDT documented as of this encounter Plan of Treatment Not on file documented as of this encounter Procedures Procedure Name Priority Date/Time Associated Diagnosis Comments CHG RADIOLOGIC EXAM UPR GI TRC DOUBLE CONTRAST STUDY Routine 06/15/2022 RUQ pain Hiatal hernia Sarcoidosis Prediabetes documented in this encounter Results * CHG RADIOLOGIC EXAM UPR GI TRC DOUBLE CONTRAST STUDY (06/15/2022) Patrick Avina PA-C OUTSIDE RADIOLOGY documented in this encounter Visit Diagnoses Diagnosis RUQ pain Abdominal pain, right upper quadrant Hiatal hernia Diaphragmatic hernia without mention of obstruction or gangrene Sarcoidosis Prediabetes Other abnormal glucose documented in this encounter Care Teams Television Equipment Operator Relationship Specialty Start Date End Date Reginaldo Dunlap MD PCP - General Internal Medicine 02/24/19 documented as of this encounter
== END 2025-06-16 08:30 | disposition home or self-care (01) ==
LOC: HO.HMGAL 08:07
PROVIDERS: PCP Internal Medicine; Visit Provider Registered Nurse Emergency
DX: J30.89 Other allergic rhinitis (principal)
CPT/HCPCS: 95117; 95165

== ENCOUNTER 2025-07-12 08:29 | Outpatient (AMB) | payer OTHER, SELFPAY ==
--- OUTSIDE RECORDS SUMMARY | 2025-07-12 09:44 | XMS_ITS | Clinical Summary ---
Author Organization [facility] Address [address] [place] [address] Phone Care Team Providers Care Film Mounter Name Role Phone Reginaldo Dunlap MD Primary Care Provider [phone] Allergies Active Allergy Reactions Criticality Noted Date [...] (one) time each day. 04/29/2025 Active multivitamin-mi a-wdug-CU-vit K (Adults Multivitamin) 18 mg iron-400 mcg-25 mcg tablet 1 tab Orally daily for 30 days 09/04/2024 Active Zituvio 25 mg tablet Take 1 tablet (25 mg total) by mouth 1 (one) time each day. 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 Pulmonary nodules 06/11/2025 Encounters Date Type Department Care Team Description 06/30/2025 11:21 AM EDT - 06/30/2025 11:59 PM EDT Hospital Encounter [facility] CT Scan [address] [place] [phone] Chest wall deformity; Pulmonary nodules Discharge Disposition: Home or Self Care 06/11/2025 8:30 AM EDT Consult Thoracic Surgery - [place] [address] [facility] [address] [place] [phone] Nathanael Shaw MD Chest wall deformity (Primary Dx); Pulmonary nodules 06/09/2025 Telephone Thoracic Surgery - [place] [address] [phone] Avis Taylor MA from Last 3 Months [...] Value Date Recorded Sex Assigned at Female 06/23/2025 8:40 PM EDT Legal Sex Female 12:14 PM EST Gender [...] Care Team (Late st Contact Info) Description 07/15/2025 3:30 PM EDT Office Visit Thoracic Surgery - [address] [phone] Nathanael Shaw MD [address] [place] [phone] Health Maintenance Due Date Last Done Comments [...] 09/18/2022 Social Influencers of Health Screening 09/18/2022 Depression Screening 10/21/2024 Diabetes: Annual Urine Albumin-Creatinine Ratio (uACR) 11/19/2024 Diabetes: Blood Sugar Contro l Test (HGBA1C) 11/19/2024 Diabetes: Annual GFR (Glomerular Filtration Rate) 03/19/2025 03/19/2024 COVID-19 Vaccine (4 - 2024-2 6 season) 2025 01/05/2022, 01/28/2021, 01/07/2021 Influenza Vaccine (#1) 2025 07/21/2018 Cholesterol Screening (Lipid Panel) 03/19/2029 03/19/2024 RSV Immunization Adult Patients (1 - 1-dose 75+ series) 2047 HIB Vaccines Aged Out No longer eligi [...] on patient's age to complete this topic Procedures Procedure Name Priority Date/Time Associated Diagnosis Comments CT CHEST WO CONTRAST Routine 06/30/2025 11:30 AM EDT Chest wall deformity Pulmonary nodules from Last 3 Months Results * CT Chest wo Contrast (06/30/2025 11:30 AM EDT) Anatomical Region Laterality Modality Body Computed Tomogra phy 07/08/2025 7:21 AM EDT Impressions 07/08/2025 7:37 AM EDT 1. No suspicious abnormality of the chest wall. The tip of the xiphoid is directed ventrally. This should be managed on the basis of the physical exam and history. 2. No new suspicious pulmonary nodules. 3. Evidence of prior right middle lobe wedge resection and previous granulomatous disease which are stable -------- FINAL REPORT -------- Dictated By: Brady Nielsen Dictated Date: 07/08/2025 07:21 ET Assigned Physician: Brady Nielsen Reviewed and Electronically Signed By: Brady Nielsen Signed Date: 07/08/2025 07:37 ET Workstation ID: [id number] Transcribed By: Self Edit Transcribed Date: 07/08/2025 07:21 ET Narrative 07/08/2025 7:37 AM EDT EXAMINATION: CT CHEST WITHOUT CONTRAST CLINICAL INFORMATION: Pulmonary nodules. Chest wall deformity History of right-sided breast cancer status post mastectomy and prosthesis, and sarcoidosis, who presents for evaluation of chest wall rib deformity. Shortness of breath with activity. Breast cancer in 2018 and underwent a middle lobe wedge resection in 2016, which was benign. Dr. Hunt identified some spots on her lung, which were initially stable but later doubled in size, leading to a referral to our clinic. The spots were diagnosed as sarcoidosis. COMPARISON: Portions of previous 01/15/24 TECHNIQUE: Multidetector CT. Examination of the chest. Examination of the chest without IV contrast. Reformatting in the coronal and sagittal planes. DLP: 180 mGy-cm Dose optimization was performed including the use of low-dose iterative reconstruction technique with automatic exposure control based on patient size. Type of contrast: None Volume of IV contrast: None Volume of contrast discarded: 0 mL FINDINGS: LUNG: No suspicious abnormality of the trachea or mainstem bronchi. No change in the nodularity and stable line consistent with wedge resection of the middle lobe. There is some unchanged nodularity with calcifications in the posterior right costophrenic sulcus region. Unchanged trace nodularity in the posterolateral right costophrenic sulcus region. There are a few unchanged calcified granulomata. There are no new suspicious masses or nodules. MEDIASTINUM: There are no enlarged mediastinal or hilar lymph nodes. No suspicious abnormality of the esophagus CARDIAC: The heart is not enlarged. No pericardial fluid or thickening CORONARY CALCIFICATION: No coronary calcifications demonstrated. VASCULAR: There is no thoracic aortic aneurysm. The main pulmonary artery is normal caliber PLEURA: There is no pleural fluid or pneumothorax AXILLA/CHEST WALL: There is a prepectoral right breast implant. There is no suspicious breast mass or collection. There are no enlarged axillary lymph nodes. There is slight ventral angulation and prominence at the tip of the xiphoid without surrounding stranding or focal bony lesion. VISUALIZED UPPER ABDOMEN: No suspicious abnormality on limited assessment of the visualized upper abdomen. Unchanged calcification in the upper right kidney and some fluid attenuating structures in the central aspect of the visualized upper left kidney. MUSCULOSKELETAL: No suspicious focal bony lesion. Procedure Note Brady Nielsen MD - 07/08/2025 EXAMINATION: CT CHEST WITHOUT CONTRAST CLINICAL INFORMATION: Pulmonary nodules. Chest wall deformity History of right-sided breast cancer status post mastectomy andprosthesis, and sarcoidosis, who presents for evaluation of chest wall ribdeformity. Shortness of breath with activity. Breast cancer in 2018 and underwent a middle lobe wedge resection in 2016,which was benign. Dr. Hunt identified some spots on her lung, whichwere initially stable but later doubled in size, leading to a referral [facility]. The spots were diagnosed as sarcoidosis. COMPARISON: Portions of previous 01/15/24 TECHNIQUE: Multidetector CT. Examination of the chest. Examination of the chest without IV contrast. Reformatting in the coronal and sagittal planes. DLP: 180 mGy-cm Dose optimization was performed including the use of low-dose iterativereconstruction technique with automatic exposure control based on patientsize. Type of contrast: None Volume of IV contrast: None Volume of contrast discarded: 0 mL FINDINGS: LUNG: No suspicious abnormality of the trachea or mainstem bronchi. No change in the nodularity and stable line consistent with wedgeresection of the middle lobe. There is some unchanged nodularity with calcifications in the posteriorright costophrenic sulcus region. Unchanged trace nodularity in the posterolateral right costophrenic sulcusregion. There are a few unchanged calcified granulomata. There are no new suspicious masses or nodules. MEDIASTINUM: There are no enlarged mediastinal or hilar lymph nodes. Nosuspicious abnormality of the esophagus CARDIAC: The heart is not enlarged. No pericardial fluid or thickening CORONARY CALCIFICATION: No coronary calcifications demonstrated. VASCULAR: There is no thoracic aortic aneurysm. The main pulmonary arteryis normal caliber PLEURA: There is no pleural fluid or pneumothorax AXILLA/CHEST WALL: There is a prepectoral right breast implant. There isno suspicious breast mass or collection. There are no enlarged axillarylymph nodes. There is slight ventral angulation and prominence at the tip of thexiphoid without surrounding stranding or focal bony lesion. VISUALIZED UPPER ABDOMEN: No suspicious abnormality on limited assessmentof the visualized upper abdomen. Unchanged calcification in the upperright kidney and some fluid attenuating structures in the central aspectof the visualized upper left kidney. MUSCULOSKELETAL: No suspicious focal bony lesion. IMPRESSION: 1. No suspicious abnormality of the chest wall. The tip of the xiphoid isdirected ventrally. This should be managed on the basis of the physicalexam and history. 2. No new suspicious pulmonary nodules. 3. 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
--- OUTSIDE RECORDS SUMMARY | 2025-07-12 09:44 | XMS_ITS | Clinical Summary ---
Author Organization [facility] Address [facility] [address] [address] Phone Care Team Providers Care Slackman Name Role Phone Reginaldo Dunlap MD Primary Care Provider [phone] Allergies Active Allergy Reactions Criticality Noted Date [...] 2022 ZOSTER VACCINES (1 of 2) 2022 INFLUENZA VACCINE (#1) 2025 COVID-19 VACCINE (1 - 2023-2 5 season) 2025 HEPATITIS A VACCINES Aged Out No long [...] topic Medical Devices Not on file Insurance [employer] [facility] TOTAL CHOICE INDEMNITY [employer] TOTAL CHOICE INDEMNITY [employer] TOTAL CHOICE INDEMNITY [employer] TOTAL CHOICE INDEMNITY [employer] TOTAL CHOICE INDEMNITY [employer] TOTAL CHOICE INDEMNITY Care Teams Slackman Relationship Specialty Start Date End Date Reginaldo Dunlap MD [address] [place] [id number] PCP - General Internal Medicine 08/06/24 Additional Source Comments The information contained in this document represents components of the legal health record. It is not the complete legal health record.[facility]
--- OUTSIDE RECORDS SUMMARY | 2025-07-12 09:45 | XMS_ITS | Patient Health Record ---
Author Organization [facility] Address [address] [place] [address] Care Team Providers Care Seating Upholsterer Name Role Phone EDDIE DUNLAP Primary Care Provider DORI TENA [phone] Allergies Allergen (clinical drug ingredient) Drug/Non Drug Allergy documented on EMR Reaction Allergy Type Onset Date Status Substance with sulfonamide structure and antibacterial mechanism of action (substance) Sulfa Antibiotics anaphylaxis Drug Allergy Active Results Component Value Reference Range Notes CT CHEST WO CONTRAST (Not ye t reviewed by provider) Interpretation: Performing Lab: Notes/Report: Note See Note [facility], a member of [employer] Patient Name: DEZ YOU Date of : 1970 Reason for Exam: Pulmonary nodules and chest wall deformity Exam Date: 06/30/2025 [id number] EST Report Status: Final Ordering Provider: MYRA PALUMBO PCP: EDDIE DUNLAP EXAMINATION: CT CHEST WITHOUT CONTRAST CLINICAL INFORMATION: Pulmonary nodules. Chest wall deformity History of right-tali ed breast cancer status post mastectomy and prosthesis, and sarcoidosis, who presents for evaluation of chest wall rib deformity. Shortness of breath with activity. Breast cancer in 201 8 and underwent a middle lobe wedge resection [...] sagittal planes. DLP: 180 mGy-cm Dose optimization wa s performed including the use of low-dose iterative reconstruction technique with automatic exposure control based on patient size. Type of contrast: None Volume of IV contras t: None Volume of contrast discarded: 0 mL FINDINGS: LUNG: No suspicious abnormality of the trachea or mainstem bronchi. No change in the nodularity and stable line consistent with wedge resection of the middle lobe. There is some unchan ged nodularity with calcifications in the posterior right costophrenic sulcus region. Unchanged trace nodularity in the posterolateral right costophrenic sulcus region. There are a few unchanged calcified granulomata. There are no new suspicious masses or nodules. MEDIASTINUM: There a re no enlarged mediastinal or hilar lymph nodes. No suspicious abnormality of the esophagus CARDIAC: The heart i s not enlarged. No pericardial fluid or thickening CORONARY CALCIFICATI ON: No coronary calcifications demonstrated. VASCULAR: There is n o thoracic aortic aneurysm. The main pulmonary artery is normal caliber PLEURA: There is no pleural fluid or pneumothorax AXILLA/CHEST WALL: There is a prepectoral right breast implant. There is no suspicious breast mass or collection. There are no enlarged axillary lymph nodes. There is slight vent ral angulation and prominence at the tip of [...] granulomatous disease which are stable -------- FINAL REPOR T -------- Dictated By: Brady Reid Dictated Date: 07/08/2025 07:21 ET Assigned Physician: Brady Nielsen Reviewed and Electronically Signed By: Brady Nielsen Signed Date: 025 07:37 ET Workstation ID: [id number] Transcribed By: Self Edit Transcribed Date: 07/08/2025 07:21 ET TSH+T3+Free T4+T3 Free Reviewed date:03/17/2025 08:26:10 AM Interpretation: Performing Lab:[facility], [address] [place] [address], Phone - [phone], Director - Galina Notes/Report: TSH-ICMA 2.3 Reference Range: Non- Adult 0.450-4.500 First Trimester 0.100-4.000 Second Trimester 0.200-4.000 Third Trimester 0.300-4.500 Triiodothyronine (T-3), Serum 121 Reference Range: Adults: 55 - 170 Free T-3 3.5 Reference Range: >=20y: 2.0 - 4.4 Free T4 by Dialysis/Fire Observer 1.3 This test was developed and its performance characteristics determined by [facility]. It has not been cleared or approved by the Food and Drug Administration. Reference Range: Pubertal Children and Adults: 0.8 - 1.7 Comp. Metabolic Panel (14)-3 Reviewed date:03/17/2025 08:26:10 AM Interpretation: Performing Lab:[facility], [address] [place] [address], Phone - [phone], Director - Galina Notes/Report: Glucose 100 70-99 [...] IU/L ALT (SGPT) 15 0-32 IU/L Lipid Panel-[id number] Reviewed date:03/17/2025 08:26:10 AM Interpretation: Performing Lab:[facility] [place], [address] [place] [address], [place], Phone - [phone], Director - Galina Notes/Report: Cholesterol, Total 205 100-199 mg/dL Triglycerides 92 0-149 mg/dL HDL Cholesterol 40 >39 mg/dL VLDL Cholesterol Gonzalo 17 5-40 mg/dL LDL Chol Calc ([facility]) 148 0-99 mg/dL Vitamin D, 02-Rqoinow-[id number] Reviewed date:03/17/2025 08:25:55 AM Interpretation: Performing Lab:[facility], [address] [facility], Phone - [phone], Director - Galina Notes/Report: Vitamin D, 25-Hydroxy 38.9 30.0-100.0 ng/mL Vitamin D deficiency has been defined by the Holly of Medicine and an Endocrine Society practice guideline as a level of serum 25-OH vitamin D less than 20 ng/mL (1,2). The Endocrine Society went on to further define vitamin D insufficiency as a level between 21 and 29 ng/mL (2). 1. IOM (Holly of Medicine). 2010. Dietary reference intakes for calcium and D. [place]: The National Academies Press. 2. Diana MF, Lia NC, Debo KRUEGER, et al. Evaluation, treatment, and prevention of vitamin D deficiency: an Endocrine Society clinical practice guideline. JCEM. 2010; 96(7):1911-30. CBC With Differential/Platel et-[id number] Reviewed date:03/17/2025 08:26:10 AM Interpretation: Performing Lab:[facility] [place], [address] [facility] [place], [place], Phone - [phone], Director - Galina Notes/Report: WBC 6.7 3.4-10.8 [...] Immature Grans (Abs) 0.0 0.0-0.1 x10E3/uL Urinalysis, Complete-[id number] Reviewed date:03/17/2025 08:26:10 AM Interpretation: Performing Lab:[facility], [address] [place] [address], Phone - [phone], Director - MDJodry Notes/Report: Specific [place] 1.024 1.005-1.030 pH 5.5 5.0-7.5 Urine-Color Yellow [...] seen /lpf Bacteria Few None seen/Few Vitamin [id number] Reviewed date:03/17/2025 08:25:55 AM Interpretation: Performing Lab:[facility], [address] [place] [address], Phone - [phone], Director - Jeannedry Notes/Report: Vitamin B12 403 282-4603 pg/mL Hemoglobin [id number] Reviewed date:03/17/2025 08:26:10 AM Interpretation: Performing Lab:[facility], [address] [place] [address], [place], Phone - [phone], Director - Jeannedry Notes/Report: Hemoglobin A1c 5.4 4.8-5.6 % . Prediabetes: 5.7 - 6.4 Diabetes: >6.4 Glycemic control for adults with diabetes: <7.0 Comp. Metabolic Panel (14)-3 26400 Reviewed date:11/13/2024 07:58:20 AM Interpretation: Performing Lab:[facility], [address] [place] [address], Phone - [phone], Director - MDJodry Notes/Report: Glucose 111 70-99 [...] IU/L ALT (SGPT) 16 0-32 IU/L Lipid Panel-[id number] Reviewed date:11/13/2024 07:58:25 AM Interpretation: Performing Lab:[facility], [address] [place] [address], Phone - [phone], Director - MDJodry Notes/Report: Cholesterol, Total 202 100-199 mg/dL Triglycerides 87 0-149 mg/dL HDL Cholesterol 44 >39 mg/dL VLDL Cholesterol Gonzalo 16 5-40 mg/dL LDL Chol Calc (NIH) 142 0-99 mg/dL CBC With Differential/Platel et-[id number] Reviewed date:11/13/2024 07:58:41 AM Interpretation: Performing Lab:[facility], [address] [place] [address], Phone - [phone], Director - MDJodry Notes/Report: WBC 9.1 3.4-10.8 [...] Immature Grans (Abs) 0.0 0.0-0.1 x10E3/uL Hemoglobin [id number] Reviewed date:11/13/2024 07:58:14 AM Interpretation: Performing Lab:[facility], [address] [facility], Phone - [phone], Director - MDLucyy Notes/Report: Hemoglobin A1c 6.0 4.8-5.6 % . Prediabetes: 5.7 - 6.4 Diabetes: >6.4 Glycemic control for adults with diabetes: <7.0 Shira Dexa Axial Skeleton Reviewed date:08/17/2024 08:10:33 AM Interpretation: Performing Lab: Notes/Report: Original Ordering Provider[facility] Comp. Metabolic Panel (14)-3 29175 Reviewed date:07/30/2024 08:34:41 AM Interpretation: Performing Lab:[facility], [address] [facility], [place], Phone - [phone], Director - MDJodry Notes/Report: Glucose 146 70-99 [...] IU/L ALT (SGPT) 26 0-32 IU/L Lipid Panel-[id number] Reviewed date:07/30/2024 08:34:41 AM Interpretation: Performing Lab:[facility] [place], [address] [facility], Phone - [phone], Director - MDJoy Notes/Report: Cholesterol, Total 209 100-199 mg/dL Triglycerides 113 0-149 mg/dL HDL Cholesterol 40 >39 mg/dL VLDL Cholesterol Gonzalo 21 5-40 mg/dL LDL Chol Calc (NIH) 148 0-99 mg/dL CBC With Differential/Platel et-[id number] Reviewed date:07/30/2024 08:34:41 AM Interpretation: Performing Lab:[facility] [place], [address] [facility], [place], Phone - [phone], Director - MDJoy Notes/Report: WBC 5.6 3.4-10.8 x10E3/uL RBC 4.77 [...] Immature Grans (Abs) 0.0 0.0-0.1 x10E3/uL Hemoglobin [id number] Reviewed date:07/30/2024 08:34:41 AM Interpretation: Performing Lab:[facility], [address] [facility], [place], Phone - [phone], Director - Galina Notes/Report: Hemoglobin A1c 6.3 4.8-5.6 % . Prediabetes: 5.7 - 6.4 Diabetes: >6.4 Glycemic control for adults with diabetes: <7.0 Lipid Panel-[id number] Reviewed date:06/25/2025 08:08:31 AM Interpretation: Performing Lab:[facility], [address] [place], [place], Phone - [phone], Director - Galina Notes/Report: Cholesterol, Total 201 100-199 mg/dL Triglycerides 94 0-149 mg/dL HDL Cholesterol 48 >39 mg/dL VLDL Cholesterol Gonzalo 17 5-40 mg/dL LDL Chol Calc (NIH) 136 0-99 mg/dL US ABDOMEN LIMITED Reviewed date:11/20/2024 09:03:07 AM Interpretation: Performing Lab: Notes/Report: Note See Note [facility], a member of [employer] Patient Name: DEZ YOU Date of : 1970 Reason for Exam: fatty liver Exam Date: 11/19/2024 [id number] EST Report Status: Final Ordering Provider: FANNY [...] Signed Date: 025 09:33 ET Workstation ID: [id number] Transcribed By: Self Edit Transcribed Date: 11/19/2024 09:29 ET Reason For Referral Reason Evaluate & Treat Diagnosis 1 Fatty (change of) li veronika, not elsewhere classified (K76.0) Diagnosis 2 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 [phone], f. [phone] Referral Priority Routine Medications Medication SIG (Take, Route, Frequency, Duration) Notes Start Date End Date Status Ondansetron HCl 4 MG 1 tablet Orally twice daily; Duration: 30 days As needed nausea 01/01/2025 Active Zituvio 25 MG 1 Orally Once a day; Duration: 90 days 11/17/2024 Active Losartan Potassium 25 MG TAKE 1 TABLET B Y MOUTH EVERY DAY FOR 30 DAYS; Duration: 90 Active Magnesium Active Calcium+D3 600-20 MG-MCG 1 tablet with a meal Orally Once a day; Duration: 90 days Active Wegovy 2.4 MG/0.75ML 0.75 mL Subcutaneou s weekly; Duration: 30 days 07/01/2025 Active Famotidine 40 MG 1 tablet Orally Once a day; Duration: 14 days Active Wegovy 1.7 MG/0.75ML 0.75 mL Subcutaneou s; Duration: 30 days Active Multivitamin Adults - 1 tab Orally daily ; Duration: 30 days Active Immunizations Vaccine Route Administration Date Status [...] former smoker Section Notes: Patient working in [employer] Patient working in [employer]: Former (years) ETOH: Socially Patient working in [employer]: Former 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) ETOH: 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) ETOH: Socially Patient working in [employer]: Former Patient working in [employer] Patient working in [employer] Patient working in [employer]: Former (years) ETOH: Socially Patient working in [employer]: Former (years) ETOH: Socially 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) ETOH: Socially Patient working in [employer]: Former (years) ETOH: Socially Patient working in [employer]: Former Patient working in [employer]: Former (years) ETOH: Socially Patient working in [employer]: Former (years) ETOH: Socially Patient working in [employer]: Former (years) ETOH: Socially Patient working in [employer]: Former Patient working in [employer] Patient working in [employer] Patient working in [employer] Patient working in [employer] Patient working in [employer]: Former Patient working in [employer]: Former Problems Problem Type SNOMED Code ICD Code [...] (E78.5) Active confirmed Vital Signs Heart Rate 73 /min 07/01/2025 73 Oximetry 99 % 07/01/2025 73 Blood pressure diastolic 74 mm Hg 07/01/2025 73 Height 66 in 07/01/2025 73 Blood pressure systolic 126 mm Hg 07/01/2025 73 Weight 192.2 lbs 07/01/2025 73 BMI 31.02 kg/m2 07/01/2025 73 Encounters Encounter Location Date Provider Diagnosis [facility] [address] [place] [address] 08/04/2024 DORI MALLIKA Prediabetes R73.03 ; Obesity (BMI 30.0-34.9) E66.9 and Lumbar back pain M54.50 [facility] [address] [place] [address] 09/04/2024 DORI MALLIKA Prediabetes R73.03 ; Obesity (BMI 30.0-34.9) E66.9 ; Lumbar back pain M54.50 ; Encounter for immunization Z23 ; Dermatitis L30.9 and Osteopenia of foot, unspecified laterality M85.[address] [facility] [place] [address] 10/01/2024 DORI MALLIKA Obesity (BMI 30.0-34 .9) E66.9 ; BMI 35.0-35.9,adult Z68.35 ; Prediabetes R73.03 and Lumbar back pain M54.50 [facility] [address] [place] [address] 11/17/2024 DORI MALLIKA Obesity (BMI 30.0-34 .9) E66.9 ; BMI 33.0-33.9,adult Z68.33 ; Prediabetes R73.03 ; Lumbar back pain M54.50 and Hyperlipidemia E78.5 [facility] [address] [place] [address] 01/01/2025 DORI MALLIKA Obesity (BMI 30.0-34 .9) E66.9 ; BMI 31.0-31.9,adult Z68.31 ; Prediabetes R73.03 ; Lumbar back pain M54.50 and Hyperlipidemia E78.[address] [place], [place] 02/10/2025 DORI MALLIKA Obesity (BMI 30.0-34 .9) E66.9 ; Xiphoid prominence R29.898 ; BMI 31.0-31.9,adult Z68.31 ; Prediabetes R73.03 ; Lumbar back pain M54.50 and Hyperlipidemia E78.5 [facility] [address] [place], [place] 03/18/2025 DORI MALLIKA Annual physical exam Z00.00 ; Type 2 diabetes mellitus with hyperglycemia E11.65 ; Obesity (BMI 30.0-34.9) E66.9 ; Lumbar back pain M54.50 and Encounter for examination of blood pressure without abnormal findings Z01.30 [facility] [address] 04/29/2025 DORI MALLIKA Obesity (BMI 30.0-34 .9) E66.9 ; BMI 31.0-31.9,adult Z68.31 ; Type 2 diabetes mellitus with hyperglycemia E11.65 ; GERD (gastroesophageal reflux disease) K21.9 ; Lumbar back pain M54.50 and Encounter for examination of blood pressure without abnormal findings Z01.30 [facility] [address] 07/01/2025 DORI MALLIKA Obesity (BMI 30.0-34 .9) E66.9 ; BMI 31.0-31.9,adult Z68.31 ; Type 2 diabetes mellitus with hyperglycemia E11.65 ; GERD (gastroesophageal reflux disease) K21.9 ; Lumbar back pain M54.50 ; Dysuria R30.0 ; Right flank pain R10.9 and Encounter for examination of blood pressure without abnormal findings Z01.[address] [facility] [address] 08/21/2024 DORI TENA [facility] [address] 09/15/2024 EDDIE DUNLAP [facility] [address] [place] [address] 10/15/2024 DORI MALLIKA [facility] [address] [place] [address] 11/11/2024 DORI MALLIKA [facility] [address] [place] [address] 12/08/2024 DORI MALLIKA [facility] [address] [place] [address] 12/25/2024 DORI MALLIKA [facility] [address] [place] [address] 01/11/2025 DORI MALLIKA [facility] [address] [place] [address] 02/01/2025 DORI MALLIKA [facility] [address] [place] [address] 02/10/2025 DORI MALLIKA [facility] [address] [place] [address] 03/08/2025 DORI MALLIKA [facility] [address] [place] [address] 04/06/2025 DORI MALLIKA [facility] [address] [place] [address] 04/14/2025 DORI MALLIKA [facility] [address] [place] [address] 04/29/2025 DORI MALLIKA [facility] [address] [place] [address] 06/22/2025 DORI MALLIKA [facility] [address] [place] [phone] 07/02/2025 DORI MALLIKA Assessments Encounter Date Diagnosis (ICD [...] ID # Chronic back pain. Has seen Najma and [facility] pain mangement, as well as neurosurgery. Will refer to [facility] General Pain Management. Will do [...] Dictation was accomplished with the use of [employer] voice recognition software, prone to medical misidentifications [...] ID # Chronic back pain. [facility], as well as neurosurgery. Will refer to [facility] General Pain Management. Will do [...] Dictation was accomplished with the use of [employer] voice recognition software, prone to medical misidentifications [...] send to ID # Chronic back pain. [facility] General appt 09/16/24. # Dermatitis: [...] Dictation was accomplished with the use of [employer] voice recognition software, prone to medical misidentifications [...] Dictation was accomplished with the use of [employer] voice recognition software, prone to medical misidentifications [...] face time. Case discussed with collaborating physician Mark Dunlap who reviewed the assessment and plan. Chart, medications, labs, vital signs reviewed. Dictation was accomplished with the use of [employer] voice recognition software, prone to medical misidentifications [...] uweekly. Marv list of low cholestrol foods # Subcentimer [...] face time. Case discussed with collaborating physician Mark Dunlap who reviewed the assessment and plan. Chart, medications, labs, vital signs reviewed. Dictation was accomplished with the use of [employer] voice recognition software, prone to medical misidentifications [...] face time. Case discussed with collaborating physician Mark Dunlap who reviewed the assessment and plan. Chart, medications, labs, vital signs reviewed. Dictation was accomplished with the use of [employer] voice recognition software, prone to medical misidentifications [...] send to ID # Chronic back pain. [facility] General appt 09/16/24. # Dermatitis: Triamcinolone cream placed to pharmacy. Appears contact in nature. Add Clairtin 10 mg po daily x 7 days # Osteopeina. Ca + Vit D given Total time spent with patient is 30 minutes, with over half being face to face time. Case discussed with collaborating physician Mark Dunlap who reviewed the assessment and plan. Chart, medications, labs, vital signs reviewed. Dictation was accomplished with the use of [employer] voice recognition software, prone to medical misidentifications [...] face time. Case discussed with collaborating physician Mark Dunlap who reviewed the assessment and plan. Chart, medications, labs, vital signs reviewed. Dictation was accomplished with the use of [employer] voice recognition software, prone to medical misidentifications [...] face time. Case discussed with collaborating physician Mark Dunlap who reviewed the assessment and plan. Chart, medications, labs, vital signs reviewed. Dictation was accomplished with the use of [employer] voice recognition software, prone to medical misidentifications [...] face time. Case discussed with collaborating physician Mark Dunlap who reviewed the assessment and plan. Chart, medications, labs, vital signs reviewed. Dictation was accomplished with the use of [employer] voice recognition software, prone to medical misidentifications [...] face time. Case discussed with collaborating physician Mark Dunlap who reviewed the assessment and plan. Chart, medications, labs, vital signs reviewed. Dictation was accomplished with the use of [employer] voice recognition software, prone to medical misidentifications [...] log exercise and discussed fitness Apps like SnapUp which can help keep log off calories [...] be appropriate. Case discussed with collaborating physician Mark Dunlap who reviewed the assessment and plan. Chart, medications, labs, vital signs reviewed. Dictation was accomplished with the use of [employer] voice recognition software, prone to medical misidentifications [...] log exercise and discussed fitness Apps like [employer] which can help keep log off calories [...] be appropriate. Case discussed with collaborating physician Mark Dunlap who reviewed the assessment and plan. Chart, medications, labs, vital signs reviewed. Dictation was accomplished with the use of [employer] voice recognition software, prone to medical misidentifications [...] log exercise and discussed fitness Apps like [employer] which can help keep log off calories [...] be appropriate. Case discussed with collaborating physician Mark Dunlap who reviewed the assessment and plan. Chart, medications, labs, vital signs reviewed. Dictation was accomplished with the use of [employer] voice recognition software, prone to medical misidentifications [...] log exercise and discussed fitness Apps like [employer] which can help keep log off calories [...] be appropriate. Case discussed with collaborating physician Mark Dunlap who reviewed the assessment and plan. Chart, medications, labs, vital signs reviewed. Dictation was accomplished with the use of [employer] voice recognition software, prone to medical misidentifications and grammatical errors. This is unintentional and the practitioner does try to identify and correct these, but some could still be present. Please do not hesitate to contact practitioner for clarification. All questions answered to patients satisfaction. Patient verbalized understanding of diagnosis and treatments explained. To call sooner prior to next visit it any questions/concerns arise. 07/01/2025 Obesity (BMI 30.0-34.9) (ICD-10 - E66.9) # Obesity 04/29/25: BMI 31, Weight 195 lb. Continue Wegovy 1.7 mg subcu weekly. Patient overall doing well. Will add Famotidine 20 mg po daily x 2 weeks. Avoid spicy/greasy food. Likely due to missing 1 dose. 07/01/25: BMI 31, Weifht 190. COntinue Wegovy, will go up to 2.4 mg. # Dysuria. Urine dip negative. Will send for UA w/ culture. ? Could have passed kidney stone. # Prediabetes: Patient has a hx of prediabetes. Her Hgb A1c from this month 6.0 down to 5.4. On Wegovy. Recheck A1C # Chronic back pain. Chiropractor recommend. Bring back to [facility] if no improvement Patient seen and examined. Comprehensive discussion was done on the following. Total time spent with brendaleifmark was 55 minutes, over half being face to face time. Case discussed with collaborating physician Mark Dunlap who reviewed the assessment and plan. Chart, medications, labs, vital signs reviewed. Dictation was accomplished with the use of [employer] voice recognition software, prone to medical misidentifications and grammatical errors. This is unintentional and the practitioner does try to identify and correct these, but some could still be present. Please do not hesitate to contact practitioner for clarification. All questions answered to patients satisfaction. Patient verbalized understanding of diagnosis and treatments explained. To call sooner prior to next visit it any questions/concerns arise. 07/01/2025 BMI 31.0-31.9,adult (ICD-10 - Z68.31) # Obesity 04/29/25: BMI 31, Weight 195 lb. Continue Wegovy 1.7 mg subcu weekly. Patient overall doing well. Will add Famotidine 20 mg po daily x 2 weeks. Avoid spicy/greasy food. Likely due to missing 1 dose. 07/01/25: BMI 31, Weifht 190. COntinue Wegovy, will go up to 2.4 mg. # Dysuria. Urine dip negative. Will send for UA w/ culture. ? Could have passed kidney stone. # Prediabetes: Patient has a hx of prediabetes. Her Hgb A1c from this month 6.0 down to 5.4. On Wegovy. Recheck A1C # Chronic back pain. Chiropractor recommend. Bring back to [facility] if no improvement Patient seen and examined. Comprehensive discussion was done on the following. Total time spent with beverly was 55 minutes, over half being face to face time. Case discussed with collaborating physician Mark Dunlap who reviewed the assessment and plan. Chart, medications, labs, vital signs reviewed. Dictation was accomplished with the use of Watchwith voice recognition software, prone to medical misidentifications and grammatical errors. This is unintentional and the practitioner does try to identify and correct these, but some could still be present. Please do not hesitate to contact practitioner for clarification. All questions answered to patients satisfaction. Patient verbalized understanding of diagnosis and treatments explained. To call sooner prior to next visit it any questions/concerns arise. 07/01/2025 Type 2 diabetes mellitus with hyperglycemia (ICD-10 - E11.65) # Obesity 04/29/25: BMI 31, Weight 195 lb. Continue Wegovy 1.7 mg subcu weekly. Patient overall doing well. Will add Famotidine 20 mg po daily x 2 weeks. Avoid spicy/greasy food. Likely due to missing 1 dose. 07/01/25: BMI 31, Weifht 190. COntinue Wegovy, will go up to 2.4 mg. # Dysuria. Urine dip negative. Will send for UA w/ culture. ? Could have passed kidney stone. # Prediabetes: Patient has a hx of prediabetes. Her Hgb A1c from this month 6.0 down to 5.4. On Wegovy. Recheck A1C # Chronic back pain. Chiropractor recommend. Bring back to [facility] if no improvement Patient seen and examined. Comprehensive discussion was done on the following. Total time spent with beverly was 55 minutes, over half being face to face time. Case discussed with collaborating physician Mark Dunlap who reviewed the assessment and plan. Chart, medications, labs, vital signs reviewed. Dictation was accomplished with the use of Watchwith voice recognition software, prone to medical misidentifications [...] log exercise and discussed fitness Apps like SnapUp which can help keep log off calories [...] be appropriate. Case discussed with collaborating physician Mark Dunlap who reviewed the assessment and plan. Chart, medications, labs, vital signs reviewed. Dictation was accomplished with the use of Watchwith voice recognition software, prone to medical misidentifications [...] log exercise and discussed fitness Apps like SnapUp which can help keep log off calories [...] be appropriate. Case discussed with collaborating physician Mark Dunlap who reviewed the assessment and plan. Chart, medications, labs, vital signs reviewed. Dictation was accomplished with the use of Watchwith voice recognition software, prone to medical misidentifications [...] face time. Case discussed with collaborating physician Mark Dunlap who reviewed the assessment and plan. Chart, medications, labs, vital signs reviewed. Dictation was accomplished with the use of Watchwith voice recognition software, prone to medical misidentifications [...] face time. Case discussed with collaborating physician Mark Dunlap who reviewed the assessment and plan. Chart, medications, labs, vital signs reviewed. Dictation was accomplished with the use of Watchwith voice recognition software, prone to medical misidentifications [...] face time. Case discussed with collaborating physician Mark Dunlap who reviewed the assessment and plan. Chart, medications, labs, vital signs reviewed. Dictation was accomplished with the use of Watchwith voice recognition software, prone to medical misidentifications [...] Dictation was accomplished with the use of Watchwith voice recognition software, prone to medical misidentifications [...] face time. Case discussed with collaborating physician Mark Dunlap who reviewed the assessment and plan. Chart, medications, labs, vital signs reviewed. Dictation was accomplished with the use of Watchwith voice recognition software, prone to medical misidentifications [...] ID # Chronic back pain. Has seen [facility] pain mangement, as well as neurosurgery. Will refer to [facility]. Will do [...] Dictation was accomplished with the use of Watchwith voice recognition software, prone to medical misidentifications [...] send to ID # Chronic back pain. [facility] appt 09/16/24. # Dermatitis: [...] Dictation was accomplished with the use of Watchwith voice recognition software, prone to medical misidentifications [...] send to ID # Chronic back pain. [facility] appt 09/16/24. # Dermatitis: Triamcinolone cream placed to pharmacy. Appears contact in nature. Add Clairtin 10 mg po daily x 7 days # Osteopeina. Ca + Vit D given Total time spent with patient is 30 minutes, with over half being face to face time. Case discussed with collaborating physician Mark Dunlap who reviewed the assessment and plan. Chart, medications, labs, vital signs reviewed. Dictation was accomplished with the use of Watchwith voice recognition software, prone to medical misidentifications [...] face time. Case discussed with collaborating physician Mark Dunlap who reviewed the assessment and plan. Chart, medications, labs, vital signs reviewed. Dictation was accomplished with the use of Watchwith voice recognition software, prone to medical misidentifications [...] face time. Case discussed with collaborating physician Mark Dunlap who reviewed the assessment and plan. Chart, medications, labs, vital signs reviewed. Dictation was accomplished with the use of Watchwith voice recognition software, prone to medical misidentifications [...] face time. Case discussed with collaborating physician Mark Dunlap who reviewed the assessment and plan. Chart, medications, labs, vital signs reviewed. Dictation was accomplished with the use of Watchwith voice recognition software, prone to medical misidentifications [...] log exercise and discussed fitness Apps like SnapUp which can help keep log off calories [...] be appropriate. Case discussed with collaborating physician Mark Dunlap who reviewed the assessment and plan. Chart, medications, labs, vital signs reviewed. Dictation was accomplished with the use of Watchwith voice recognition software, prone to medical misidentifications [...] log exercise and discussed fitness Apps like SnapUp which can help keep log off calories [...] be appropriate. Case discussed with collaborating physician Mark Dunlap who reviewed the assessment and plan. Chart, medications, labs, vital signs reviewed. Dictation was accomplished with the use of Watchwith voice recognition software, prone to medical misidentifications and grammatical errors. This is unintentional and the practitioner does try to identify and correct these, but some could still be present. Please do not hesitate to contact practitioner for clarification. All questions answered to patients satisfaction. Patient verbalized understanding of diagnosis and treatments explained. To call sooner prior to next visit it any questions/concerns arise. 07/01/2025 GERD (gastroesophageal reflux disease) (ICD-10 - K21.9) # Obesity 04/29/25: BMI 31, Weight 195 lb. Continue Wegovy 1.7 mg subcu weekly. Patient overall doing well. Will add Famotidine 20 mg po daily x 2 weeks. Avoid spicy/greasy food. Likely due to missing 1 dose. 9/11/25: BMI 31, Weifht 190. COntinue Wegovy, will go up to 2.4 mg. # Dysuria. Urine dip negative. Will send for UA w/ culture. ? Could have passed kidney stone. # Prediabetes: Patient has a hx of prediabetes. Her Hgb A1c from this month 6.0 down to 5.4. On Wegovy. Recheck A1C # Chronic back pain. Chiropractor recommend. Bring back to [facility] if no improvement Patient seen and examined. Comprehensive discussion was done on the following. Total time spent with manindern was 55 minutes, over half being face to face time. Case discussed with collaborating physician Mark Dunlap who reviewed the assessment and plan. Chart, medications, labs, vital signs reviewed. Dictation was accomplished with the use of Watchwith voice recognition software, prone to medical misidentifications and grammatical errors. This is unintentional and the practitioner does try to identify and correct these, but some could still be present. Please do not hesitate to contact practitioner for clarification. All questions answered to patients satisfaction. Patient verbalized understanding of diagnosis and treatments explained. To call sooner prior to next visit it any questions/concerns arise. 07/01/2025 Lumbar back pain (ICD-10 - M54.50) # Obesity 04/29/25: BMI 31, Weight 195 lb. Continue Wegovy 1.7 mg subcu weekly. Patient overall doing well. Will add Famotidine 20 mg po daily x 2 weeks. Avoid spicy/greasy food. Likely due to missing 1 dose. 07/01/25: BMI 31, Weifht 190. COntinue Wegovy, will go up to 2.4 mg. # Dysuria. Urine dip negative. Will send for UA w/ culture. ? Could have passed kidney stone. # Prediabetes: Patient has a hx of prediabetes. Her Hgb A1c from this month 6.0 down to 5.4. On Wegovy. Recheck A1C # Chronic back pain. Chiropractor recommend. Bring back to [facility] if no improvement Patient seen and examined. Comprehensive discussion was done on the following. Total time spent with manindern was 55 minutes, over half being face to face time. Case discussed with collaborating physician Mark Dunlap who reviewed the assessment and plan. Chart, medications, labs, vital signs reviewed. Dictation was accomplished with the use of Watchwith voice recognition software, prone to medical misidentifications [...] log exercise and discussed fitness Apps like SnapUp which can help keep log off calories [...] be appropriate. Case discussed with collaborating physician Mark Dunlap who reviewed the assessment and plan. Chart, medications, labs, vital signs reviewed. Dictation was accomplished with the use of Watchwith voice recognition software, prone to medical misidentifications [...] log exercise and discussed fitness Apps like SnapUp which can help keep log off calories [...] be appropriate. Case discussed with collaborating physician Mark Dunlap who reviewed the assessment and plan. Chart, medications, labs, vital signs reviewed. Dictation was accomplished with the use of Watchwith voice recognition software, prone to medical misidentifications [...] face time. Case discussed with collaborating physician Mark Dunlap who reviewed the assessment and plan. Chart, medications, labs, vital signs reviewed. Dictation was accomplished with the use of Watchwith voice recognition software, prone to medical misidentifications [...] face time. Case discussed with collaborating physician Mark Dunlap who reviewed the assessment and plan. Chart, medications, labs, vital signs reviewed. Dictation was accomplished with the use of Watchwith voice recognition software, prone to medical misidentifications [...] face time. Case discussed with collaborating physician Mark Dunlap who reviewed the assessment and plan. Chart, medications, labs, vital signs reviewed. Dictation was accomplished with the use of Watchwith voice recognition software, prone to medical misidentifications [...] time. Case discussed with collaborating physician France Dunalp who reviewed the assessment and plan. Chart, medications, labs, vital signs reviewed. Dictation was accomplished with the use of Watchwith voice recognition software, prone to medical misidentifications [...] Dictation was accomplished with the use of Watchwith voice recognition software, prone to medical misidentifications [...] face time. Case discussed with collaborating physician Mark Dunlap who reviewed the assessment and plan. Chart, medications, labs, vital signs reviewed. Dictation was accomplished with the use of Watchwith voice recognition software, prone to medical misidentifications [...] log exercise and discussed fitness Apps like SnapUp which can help keep log off calories [...] be appropriate. Case discussed with collaborating physician Mark Dunlap who reviewed the assessment and plan. Chart, medications, labs, vital signs reviewed. Dictation was accomplished with the use of Watchwith voice recognition software, prone to medical misidentifications and grammatical errors. This is unintentional and the practitioner does try to identify and correct these, but some could still be present. Please do not hesitate to contact practitioner for clarification. All questions answered to patients satisfaction. Patient verbalized understanding of diagnosis and treatments explained. To call sooner prior to next visit it any questions/concerns arise. 07/01/2025 Dysuria (ICD-10 - R30.0) # Obesity 04/29/25: BMI 31, Weight 195 lb. Continue Wegovy 1.7 mg subcu weekly. Patient overall doing well. Will add Famotidine 20 mg po daily x 2 weeks. Avoid spicy/greasy food. Likely due to missing 1 dose. 07/01/25: BMI 31, Weifht 190. COntinue Wegovy, will go up to 2.4 mg. # Dysuria. Urine dip negative. Will send for UA w/ culture. ? Could have passed kidney stone. # Prediabetes: Patient has a hx of prediabetes. Her Hgb A1c from this month 6.0 down to 5.4. On Wegovy. Recheck A1C # Chronic back pain. Chiropractor recommend. Bring back to [facility] if no improvement Patient seen and examined. Comprehensive discussion was done on the following. Total time spent with brendaleifmark was 55 minutes, over half being face to face time. Case discussed with collaborating physician Mark Dunlap who reviewed the assessment and plan. Chart, medications, labs, vital signs reviewed. Dictation was accomplished with the use of Watchwith voice recognition software, prone to medical misidentifications and grammatical errors. This is unintentional and the practitioner does try to identify and correct these, but some could still be present. Please do not hesitate to contact practitioner for clarification. All questions answered to patients satisfaction. Patient verbalized understanding of diagnosis and treatments explained. To call sooner prior to next visit it any questions/concerns arise. 07/01/2025 Right flank pain (ICD-10 - R10.9) # Obesity 04/29/25: BMI 31, Weight 195 lb. Continue Wegovy 1.7 mg subcu weekly. Patient overall doing well. Will add Famotidine 20 mg po daily x 2 weeks. Avoid spicy/greasy food. Likely due to missing 1 dose. 07/01/25: BMI 31, Weifht 190. COntinue Wegovy, will go up to 2.4 mg. # Dysuria. Urine dip negative. Will send for UA w/ culture. ? Could have passed kidney stone. # Prediabetes: Patient has a hx of prediabetes. Her Hgb A1c from this month 6.0 down to 5.4. On Wegovy. Recheck A1C # Chronic back pain. Chiropractor recommend. Bring back to [facility] if no improvement Patient seen and examined. Comprehensive discussion was done on the following. Total time spent with beverly was 55 minutes, over half being face to face time. Case discussed with collaborating physician Mark Dunlap who reviewed the assessment and plan. Chart, medications, labs, vital signs reviewed. Dictation was accomplished with the use of Watchwith voice recognition software, prone to medical misidentifications and grammatical errors. This is unintentional and the practitioner does try to identify and correct these, but some could still be present. Please do not hesitate to contact practitioner for clarification. All questions answered to patients satisfaction. Patient verbalized understanding of diagnosis and treatments explained. To call sooner prior to next visit it any questions/concerns arise. 07/01/2025 Encounter for examination of blood pressure without abnormal findings (ICD-10 - Z01.30) # Obesity 04/29/25: BMI 31, Weight 195 lb. Continue Wegovy 1.7 mg subcu weekly. Patient overall doing well. Will add Famotidine 20 mg po daily x 2 weeks. Avoid spicy/greasy food. Likely due to missing 1 dose. 07/01/25: BMI 31, Weifht 190. COntinue Wegovy, will go up to 2.4 mg. # Dysuria. Urine dip negative. Will send for UA w/ culture. ? Could have passed kidney stone. # Prediabetes: Patient has a hx of prediabetes. Her Hgb A1c from this month 6.0 down to 5.4. On Wegovy. Recheck A1C # Chronic back pain. Chiropractor recommend. Bring back to [facility] if no improvement Patient seen and examined. Comprehensive discussion was done on the following. Total time spent with beverly was 55 minutes, over half being face to face time. Case discussed with collaborating physician Mark Dunlap who reviewed the assessment and plan. Chart, medications, labs, vital signs reviewed. Dictation was accomplished with the use of Watchwith voice recognition software, prone to medical misidentifications [...] Order Date Hemoglobin A1c 01/04/2021 Hemoglobin A1c 10/30/2019 Hemoglobin A1c 12/25/2018 Hemoglobin A1c 04/20/2020 WIL w/Reflex 04/05/2021 Lipid Panel 12/25/2018 Comp. Metabolic Panel (14) 04/20/2020 Comp. Metabolic Panel (14) 10/30/2019 CBC 12/25/2018 CBC 04/20/2020 Bone Density 08/04/2024 Urine Culture and Sensitivity [...] LIPID PANEL, STANDARD 12/04/2022 LIPID PANEL, STANDARD 08/06/2022 LIPID PANEL, STANDARD 01/01/2025 LIPID PANEL, STANDARD 06/16/2024 COMPREHENSIVE METABOLIC PANEL 06/16/2024 COMPREHENSIVE METABOLIC PANEL 01/01/2025 COMPREHENSIVE METABOLIC PANEL 08/06/2022 COMPREHENSIVE METABOLIC PANEL 07/09/2023 COMPREHENSIVE METABOLIC PANEL 02/23/2022 CBC (INCLUDES DIFF/PLT) 07/09/2023 CBC (INCLUDES DIFF/PLT) 08/06/2022 CBC (INCLUDES DIFF/PLT) 01/01/2025 CBC (INCLUDES DIFF/PLT) 06/16/2024 URINALYSIS, COMPLETE 01/01/2025 URINALYSIS, COMPLETE 08/06/2022 URINALYSIS, COMPLETE W/REFLEX TO CULTURE 07/01/2025 HEMOGLOBIN A1c 07/01/2025 HEMOGLOBIN A1c 02/23/2022 HEMOGLOBIN A1c 08/06/2022 HEMOGLOBIN A1c 06/16/2024 HEMOGLOBIN A1c 07/09/2023 HEMOGLOBIN A1c 04/04/2023 HEMOGLOBIN A1c 12/04/2022 HEMOGLOBIN A1c 11/01/2021 VITAMIN B12 07/09/2023 VITAMIN B12 01/01/2025 VITAMIN B12 07/01/2025 T4, FREE 08/06/2022 TSH 08/06/2022 TSH 07/09/2023 VITAMIN D,25-OH,TOTAL,IA 07/09/2023 VITAMIN D,25-OH,TOTAL,IA 02/23/2022 VITAMIN D,25-OH,TOTAL,IA 08/06/2022 VITAMIN D,25-OH,TOTAL,IA 07/01/2025 VITAMIN D,25-OH,TOTAL,IA 01/01/2025 CT Chest W/O Contrast 07/24/2023 Hemoglobin [id number] 01/01/2025 TSH+T3+Free T4+T3 Free 01/01/2025 CT CHEST WO CONTRAST 06/30/2025 Next Appt Details Provider Name:DORI MALLIKA, 08/16/2025 08:45:00 AM, [address], [place], [address], Insurance Providers Payer Name Payer Address Payer Phone Subscriber Number Group Number Insured Name Patient Relationship to Insured Coverage Start Date Coverage End Date [employer] [address] [place] [phone] [id number] [id number] Self - patient is [...]
== END 2025-07-12 08:39 | disposition home or self-care (01) ==
LOC: HO.HMGAL 08:29
PROVIDERS: PCP Internal Medicine; Visit Provider Registered Nurse Emergency
DX: J30.89 Other allergic rhinitis (principal)
CPT/HCPCS: 95117; 95165

== ENCOUNTER 2025-08-11 08:57 | Outpatient (AMB) | payer OTHER, SELFPAY ==
--- OUTSIDE RECORDS SUMMARY | 2025-08-11 09:54 | XMS_ITS | Patient Health Record ---
Author Organization [facility] [address] Address [address] [place] [address] Care Team Providers Care Medical Administrator Name Role Phone DUNLAPEDDIE RUEDA Primary Care Provider [phone] DORI TENA Unavailable [phone] Allergies Allergen (clinical drug ingredient) Drug/Non Drug Allergy documented on EMR Reaction Allergy Type Onset Date Status Substance with sulfonamide structure and antibacterial mechanism of action (substance) Sulfa Antibiotics anaphylaxis Drug Allergy Active Results Component Value Reference Range Notes TSH+T3+Free T4+T3 Free Reviewed date:03/17/2025 08:26:10 AM Interpretation: Performing Lab:[facility] Lynch, [employer] [place], Phone - [phone], Director - [place] Notes/Report: TSH-ICMA 2.3 Reference Range: Non- Adult 0.450-4.500 First Trimester 0.100-4.000 Second Trimester 0.200-4.000 Third Trimester 0.300-4.500 Triiodothyronine (T-3), Serum 121 Reference Range: Adults: 55 - 170 Free T-3 3.5 Reference Range: >=20y: 2.0 - 4.4 Free T4 by Dialysis/Blender Laborer 1.3 This test was developed and its performance characteristics determined by [facility]. It has not been cleared or approved by the Food and Drug Administration. Reference Range: Pubertal Children and Adults: 0.8 - 1.7 UA/M w/rflx Culture, Routine -[id number] Reviewed date:08/09/2025 08:01:43 AM Interpretation: Performing Lab:[facility], [facility], [place], Phone - [phone], Director - MDJodry Notes/Report: Specific [place] 1.024 1.005-1.030 pH 5.5 5.0-7.5 Urine-Color Yellow Yellow Appearance Clear Clear WBC Esterase Negative Negative Protein Trace Negative/Trace Glucose Negative Negative Ketones Negative Negative Occult Blood Negative Negative Bilirubin Negative Negative Urobilinogen,Semi-Qn 0.2 0.2-1.0 mg/dL Nitrite, Urine Negative Negative Microscopic Examination Micr oscopic follows if indicated. Microscopic Examination See below: Micr oscopic was indicated and was performed. Urinalysis Reflex This speci men will not reflex to a Urine Culture. WBC None seen 0 - 5 /hpf RBC 0-2 0 - 2 /hpf Epithelial Cells (non renal) 0-10 0 - 10 /hpf Casts None seen None seen /lpf Bacteria None seen None seen/Few Comp. Metabolic Panel (14)-3 Reviewed date:03/17/2025 08:26:10 AM Interpretation: Performing Lab:[facility], [address] [facility], Phone - [phone], Director - MDJodry Notes/Report: Glucose 100 70-99 mg/dL BUN 17 [...] 0-40 IU/L ALT (SGPT) 15 0-32 IU/L Comp. Metabolic Panel (14)-3 Reviewed date:11/13/2024 07:58:20 AM Interpretation: Performing Lab:[facility], [address] [facility], [place], Phone - [phone], Director - MDJodry Notes/Report: Glucose 111 70-99 [...] IU/L ALT (SGPT) 16 0-32 IU/L Lipid Panel-[id number] Reviewed date:11/13/2024 07:58:25 AM Interpretation: Performing Lab:Caterina Lynch, [address] [place] [address], Phone - [phone], Director - Galina Notes/Report: Cholesterol, Total 202 100-199 mg/dL Triglycerides 87 0-149 mg/dL HDL Cholesterol 44 >39 mg/dL VLDL Cholesterol Gonzalo 16 5-40 mg/dL LDL Chol Calc (NIH) 142 0-99 mg/dL Lipid Panel-[id number] Reviewed date:03/17/2025 08:26:10 AM Interpretation: Performing Lab:Caterina Lynch, [address] [place] [address], Phone - [phone], Director - Galina Notes/Report: Cholesterol, Total 205 100-199 mg/dL Triglycerides 92 0-149 mg/dL HDL Cholesterol 40 >39 mg/dL VLDL Cholesterol Gonzalo 17 5-40 mg/dL LDL Chol Calc (NIH) 148 0-99 mg/dL Vitamin D, 90-[id number] Reviewed date:08/09/2025 08:01:43 AM Interpretation: Performing Lab:Caterina Lynch [address] [place] [address], Phone - [phone], Director - Gal[place] Notes/Report: Vitamin D, 25-Hydroxy 46.2 30.0-100.0 ng/mL Vitamin D deficiency has been defined by the [place] of [employer] and an Endocrine Society practice guideline as a level of serum 25-OH vitamin D less than 20 ng/mL (1,2). The Endocrine Society went on to further define vitamin D insufficiency as a level between 21 and 29 ng/mL (2). 1. IOM ([place] of [employer]). 2010. Dietary reference intakes for calcium and D. [place]: The National Academies Press. 2. Lia Cotter, Debo KRUEGER, et al. Evaluation, treatment, and prevention of vitamin D deficiency: an Endocrine Society clinical practice guideline. JCEM. 2010; 96(7):191-. Vitamin D, 91-[id number] Reviewed date:03/17/2025 08:25:55 AM Interpretation: Performing Lab:[facility] [place], [address] [facility], Phone - [phone], Director - [place] Notes/Report: Vitamin D, 25-Hydroxy 38.9 30.0-100.0 ng/mL Vitamin D deficiency has been defined by the [place] of [employer] and an Endocrine Society practice guideline as a level of serum 25-OH vitamin D less than 20 ng/mL (1,2). The Endocrine Society went on to further define vitamin D insufficiency as a level between 21 and 29 ng/mL (2). 1. IOM ([place] of [employer]). 2010. Dietary reference intakes for calcium and D. [place]: The National Academies Press. 2. Lia Cotter, Debo KRUEGER, et al. Evaluation, treatment, and prevention of vitamin D deficiency: an Endocrine Society clinical practice guideline. JCEM. 2010; 96(7):191-. CBC With Differential/Platel et-[id number] Reviewed date:11/13/2024 07:58:41 AM Interpretation: Performing Lab:[facility] [place], [address], [place], Phone - [phone], Director - [place] Notes/Report: WBC 9.1 3.4-10.8 x10E3/uL RBC 4.78 [...] % Immature Grans (Abs) 0.0 0.0-0.1 x10E3/uL CBC With Differential/Platel et-[id number] Reviewed date:03/17/2025 08:26:10 AM Interpretation: Performing Lab:[facility] Lynch, [address] [facility], [place], Phone - [phone], Director - [place] Notes/Report: WBC 6.7 3.4-10.8 [...] Immature Grans (Abs) 0.0 0.0-0.1 x10E3/uL Urinalysis, Complete-[id number] Reviewed date:03/17/2025 08:26:10 AM Interpretation: Performing Lab:[facility] [place], Phone - [phone], Director - [place] Notes/Report: Specific [place] 1.024 1.005-1.030 pH 5.5 5.0-7.5 Urine-Color Yellow [...] seen /lpf Bacteria Few None seen/Few Vitamin [id number] Reviewed date:03/17/2025 08:25:55 AM Interpretation: Performing Lab:[facility] [place], [address] [place] [address], Phone - [phone], Director - [place] Notes/Report: Vitamin B12 425 691-6889 pg/mL Vitamin [id number] Reviewed date:08/09/2025 08:01:43 AM Interpretation: Performing Lab:[facility] [place], Phone - [phone], Director - [place] Notes/Report: Vitamin B12 288 854-8936 pg/mL Hemoglobin [id number] Reviewed date:08/09/2025 08:01:43 AM Interpretation: Performing Lab:[facility] [address], Phone - [phone], Director - [place] Notes/Report: Hemoglobin A1c 5.3 4.8-5.6 % . Prediabetes: 5.7 - 6.4 Diabetes: >6.4 Glycemic control for adults with diabetes: <7.0 Hemoglobin [id number] Reviewed date:03/17/2025 08:26:10 AM Interpretation: Performing Lab:[facility] [address] [place] [address], Phone - [phone], Director - [place] Notes/Report: Hemoglobin A1c 5.4 4.8-5.6 % . Prediabetes: 5.7 - 6.4 Diabetes: >6.4 Glycemic control for adults with diabetes: <7.0 Hemoglobin [id number] Reviewed date:11/13/2024 07:58:14 AM Interpretation: Performing Lab:[facility] [place], [address] [place] [address], Phone - [phone], Director - [place] Notes/Report: Hemoglobin A1c 6.0 4.8-5.6 % . Prediabetes: 5.7 - 6.4 Diabetes: >6.4 Glycemic control for adults with diabetes: <7.0 Shira Dexa Axial Skeleton Reviewed date:08/17/2024 08:10:33 AM Interpretation: Performing Lab: Notes/Report: Original Ordering Provider: DORI SEVILLA (EMERY)[facility] ABDOMEN [facility] Reviewed date:11/20/2024 09:03:07 AM Interpretation: Performing Lab: Notes/Report: Note See Note [facility], a member of [facility] Patient Name: DEZ YOU Date of : 1970 Reason for Exam: fatty liver Exam Date: 11/19/2024 [id number] EST Report Status: Final Ordering Provider: FANNY [...] Signed Date: 025 09:33 ET Workstation ID: [id number] Transcribed By: Self Edit Transcribed Date: 11/19/2024 09:[address] CHEST WO CONTRAST Reviewed date:07/13/2025 03:07:18 PM Interpretation: Performing Lab: Notes/Report: Note See Note [facility], a member of [facility] Patient Name: DEZ YOU Date of : 1970 Reason for Exam: Pulmonary nodules and chest wall deformity Exam Date: 06/30/2025 [id number] EST Report Status: Final Ordering Provider: MYRA PALUMBO PCP: EDDIE DUNLAP EXAMINATION: CT CHEST WITHOUT CONTRAST CLINICAL INFORMATION: Pulmonary nodules. Chest wall deformity History of right-tali ed breast cancer status post mastectomy and prosthesis, and sarcoidosis, who presents for evaluation of chest wall rib deformity. Shortness of breath with activity. Breast cancer in 201 and underwent a middle lobe wedge resection [...] Signed Date: 025 07:37 ET Workstation ID: [id number] Transcribed By: Self Edit Transcribed Date: 07/08/2025 07:21 ET Lipid Panel-[id number] Reviewed date:06/25/2025 08:08:31 AM Interpretation: Performing Lab:[facility], [address] [facility], [place], Phone - [phone], Director - Gal[place] Notes/Report: Cholesterol, Total 201 100-199 mg/dL Triglycerides 94 0-149 mg/dL HDL Cholesterol 48 >39 mg/dL VLDL Cholesterol Gonzalo 17 5-40 mg/dL LDL Chol Calc (NIH) 136 0-99 mg/dL Reason For Referral Reason Evaluate & Treat Diagnosis 1 Fatty (change of) li veronika, not elsewhere classified (K76.0) Diagnosis 2 Lesion of spleen (D7 3.89) Referral Organization [facility] [address] Referring Provider First Name DORI Referring Provider Last Name MALLIKA Referring Provider Speciality Internal M edicine Referred Provider Specialty Gastroentero logy General Notes Teri Cuevas 0 07/05/2025 01:41:45 PM > Referral to [facility] and faxed, p. [phone], f. [phone] Referral Priority Routine Medications Medication SIG (Take, Route, Frequency, Duration) Notes Start Date End Date Status Ondansetron HCl 4 MG 1 tablet Orally twice daily; Duration: 30 days As needed nausea 01/01/2025 Active Losartan Potassium 25 MG TAKE 1 TABLET B Y MOUTH EVERY DAY FOR 30 DAYS; Duration: 90 Active Zituvio 25 MG 1 Orally Once a day; Duration: 90 days 11/17/2024 Active Magnesium Active Calcium+D3 600-20 MG-MCG 1 [...] former smoker Section Notes: Patient working in [employer] Tob: Former Patient working in [employer] g Patient working in [employer] g Patient working in [employer] g Patient working in [employer] Tob: Former (years) ETOH: Socially Patient working in [employer] Tob: Former (years) ETOH: Socially Patient working in [employer] Tob: Former (years) ETOH: Socially Patient working in [employer] Tob: Former (years) ETOH: Socially Patient working in [employer] Tob: Former (years) ETOH: Socially Patient working in [employer] Tob: Former Patient working in [employer] Tob: Former (years) ETOH: SOcially Patient working in [employer] CV Tob: Former 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 [employer] 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0-34.9) E66.9 ; Lumbar back pain M54.50 ; Encounter for immunization Z23 ; Dermatitis L30.9 and Osteopenia of foot, unspecified laterality M85.[address] [facility] [address] [place], [place] 10/01/2024 DORI MALLIKA Obesity (BMI 30.0-34 .9) E66.9 ; BMI 35.0-35.9,adult Z68.35 ; Prediabetes R73.03 and Lumbar back pain M54.[address] [facility] [address] [place], [place] 11/17/2024 DORI MALLIKA Obesity (BMI 30.0-34 .9) E66.9 ; BMI 33.0-33.9,adult Z68.33 ; Prediabetes R73.03 ; Lumbar back pain M54.50 and Hyperlipidemia E78.[address] [place], [place] 01/01/2025 DORI MALLIKA Obesity (BMI 30.0-34 .9) E66.9 ; BMI 31.0-31.9,adult Z68.31 ; Prediabetes R73.03 ; Lumbar back pain M54.50 and Hyperlipidemia E78.[address] [place], [place] 02/10/2025 DORI MALLIKA Obesity (BMI 30.0-34 .9) E66.9 ; Xiphoid prominence R29.898 ; BMI 31.0-31.9,adult Z68.31 ; Prediabetes R73.03 ; Lumbar back pain M54.50 and Hyperlipidemia E78.[address] [place], [place] 03/18/2025 DORI JEAN-BAPTISTEA Annual physical exam Z00.00 ; Type 2 diabetes mellitus with hyperglycemia E11.65 ; Obesity (BMI 30.0-34.9) E66.9 ; Lumbar back pain M54.50 and Encounter for examination of blood pressure without abnormal findings Z01.[address] [place] [address] 04/29/2025 DORI TENA Obesity (BMI 30.0-34 .9) E66.9 ; BMI 31.0-31.9,adult Z68.31 ; Type 2 diabetes mellitus with hyperglycemia E11.65 ; GERD (gastroesophageal reflux disease) K21.9 ; Lumbar back pain M54.50 and Encounter for examination of blood pressure without abnormal findings Z01.[address] [place] [address] 07/01/2025 DORI TENA Obesity (BMI 30.0-34 .9) E66.9 ; BMI 31.0-31.9,adult Z68.31 ; Type 2 diabetes mellitus with hyperglycemia E11.65 ; GERD (gastroesophageal reflux disease) K21.9 ; Lumbar back pain M54.50 ; Dysuria R30.0 ; Right flank pain R10.9 and Encounter for examination of blood pressure without abnormal findings Z01.[address] [place] [address] 08/21/2024 DORI MALLIKA [facility] [address] [place] [address] 09/15/2024 EDDIE ALMARAZAN [facility] [address] [place] [address] 10/15/2024 DORI MALLIKA [facility] [address] [place] [address] 11/11/2024 DORI MALLIKA [facility] [address] [place] [address] 12/08/2024 DORI MALLIKA [facility] [address] [place] [address] 12/25/2024 DORI MALLIKA [facility] [address] [place] [address] 01/11/2025 DORI MALLIKA [facility] [address] [place] [address] 02/01/2025 DORI MALLIKA [facility] [address] [place] [address] 02/10/2025 DORI MALLIKA [facility] [address] [place] [address] 03/08/2025 DORI MALLIKA [facility] [address] [address] 04/06/2025 DORI ETNA [facility] [address] [address] 04/14/2025 DORI TENA [facility] [address] [address] 04/29/20[address]ORI TENA [facility] [address] [place] [address] 06/22/2025 DORI TENA [facility] [address] [place] [address] 07/21/2025 DORI TENA [facility] [address] [address] 07/02/2025 DORI TENA Assessments Encounter Date Diagnosis (ICD Code) Assessment Notes Treatment Notes Treatment Clinical Notes Section Notes 09/04/2024 Prediabetes (ICD-10 - R73.03) # Prediabetes: [...] Dictation was accomplished with the use of [employer] voice recognition software, prone to medical misidentifications [...] Dictation was accomplished with the use of [employer] voice recognition software, prone to medical misidentifications [...] send to ID # Chronic back pain. [facility] appt 09/16/24. # Dermatitis: Triamcinolone cream [...] Dictation was accomplished with the use of [employer] voice recognition software, prone to medical misidentifications [...] send to ID # Chronic back pain. [facility] appt 09/16/24. # Dermatitis: Triamcinolone cream [...] Dictation was accomplished with the use of [employer] voice recognition software, prone to medical misidentifications [...] Dictation was accomplished with the use of [employer] voice recognition software, prone to medical misidentifications [...] Dictation was accomplished with the use of [employer] voice recognition software, prone to medical misidentifications [...] Dictation was accomplished with the use of [employer] voice recognition software, prone to medical misidentifications [...] Dictation was accomplished with the use of [employer] voice recognition software, prone to medical misidentifications [...] Dictation was accomplished with the use of [employer] voice recognition software, prone to medical misidentifications [...] Dictation was accomplished with the use of [employer] voice recognition software, prone to medical misidentifications [...] log exercise and discussed fitness Apps like appening which can help keep log off calories [...] Dictation was accomplished with the use of [employer] voice recognition software, prone to medical misidentifications [...] log exercise and discussed fitness Apps like appening which can help keep log off calories [...] Dictation was accomplished with the use of [employer] voice recognition software, prone to medical misidentifications [...] log exercise and discussed fitness Apps like appening which can help keep log off calories [...] Dictation was accomplished with the use of [employer] voice recognition software, prone to medical misidentifications [...] log exercise and discussed fitness Apps like appening which can help keep log off calories [...] Dictation was accomplished with the use of [employer] voice recognition software, prone to medical misidentifications [...] Dictation was accomplished with the use of [employer] voice recognition software, prone to medical misidentifications [...] Dictation was accomplished with the use of [employer] voice recognition software, prone to medical misidentifications [...] log exercise and discussed fitness Apps like appening which can help keep log off calories [...] Dictation was accomplished with the use of [employer] voice recognition software, prone to medical misidentifications [...] log exercise and discussed fitness Apps like appening which can help keep log off calories [...] Dictation was accomplished with the use of [employer] voice recognition software, prone to medical misidentifications [...] Dictation was accomplished with the use of [employer] voice recognition software, prone to medical misidentifications [...] Dictation was accomplished with the use of [employer] voice recognition software, prone to medical misidentifications [...] ID # Chronic back pain. Improved seeing [facility] # Dermatitis: Triamcinolone cream [...] Dictation was accomplished with the use of [employer] voice recognition software, prone to medical misidentifications [...] Dictation was accomplished with the use of [employer] voice recognition software, prone to medical misidentifications [...] send to ID # Chronic back pain. [employer] appt 09/16/24. # Dermatitis: Triamcinolone cream placed [...] Dictation was accomplished with the use of [employer] voice recognition software, prone to medical misidentifications [...] send to ID # Chronic back pain. [facility] appt 09/16/24. # Dermatitis: Triamcinolone cream [...] Dictation was accomplished with the use of [employer] voice recognition software, prone to medical misidentifications [...] Dictation was accomplished with the use of [employer] voice recognition software, prone to medical misidentifications [...] Dictation was accomplished with the use of [employer] voice recognition software, prone to medical misidentifications [...] Dictation was accomplished with the use of [employer] voice recognition software, prone to medical misidentifications [...] Dictation was accomplished with the use of [employer] voice recognition software, prone to medical misidentifications [...] log exercise and discussed fitness Apps like appening which can help keep log off calories [...] Dictation was accomplished with the use of [employer] voice recognition software, prone to medical misidentifications [...] log exercise and discussed fitness Apps like myfitnesspal which can help keep log off calories [...] Dictation was accomplished with the use of [employer] voice recognition software, prone to medical misidentifications [...] Dictation was accomplished with the use of [employer] voice recognition software, prone to medical misidentifications [...] Dictation was accomplished with the use of [employer] voice recognition software, prone to medical misidentifications [...] log exercise and discussed fitness Apps like appening which can help keep log off calories [...] Dictation was accomplished with the use of [employer] voice recognition software, prone to medical misidentifications [...] log exercise and discussed fitness Apps like appening which can help keep log off calories [...] Dictation was accomplished with the use of [employer] voice recognition software, prone to medical misidentifications [...] Dictation was accomplished with the use of [employer] voice recognition software, prone to medical misidentifications [...] Dictation was accomplished with the use of [employer] voice recognition software, prone to medical misidentifications [...] Dictation was accomplished with the use of [employer] voice recognition software, prone to medical misidentifications [...] Dictation was accomplished with the use of [employer] voice recognition software, prone to medical misidentifications [...] Dictation was accomplished with the use of [employer] voice recognition software, prone to medical misidentifications [...] re-discussed. 11/17/24: BMI 33, Weight 206. Coninue Awais, dose now Wegovy 1.7 mg subc uweekly. Marv list of low cholestrol foods 01/01/25: BMI 31, Weight 196. Continue Wegovy 1.7 mg subcu weekly. Venitafran sent. Discusesd high protein foods and exercise. [...] Dictation was accomplished with the use of [employer] voice recognition software, prone to medical misidentifications [...] log exercise and discussed fitness Apps like appening which can help keep log off calories [...] Dictation was accomplished with the use of [employer] voice recognition software, prone to medical misidentifications [...] Dictation was accomplished with the use of [employer] voice recognition software, prone to medical misidentifications [...] Dictation was accomplished with the use of [employer] voice recognition software, prone to medical misidentifications [...] Dictation was accomplished with the use of [employer] voice recognition software, prone to medical misidentifications [...] LIPID PANEL, STANDARD 08/06/2022 LIPID PANEL, STANDARD 02/23/2022 LIPID PANEL, STANDARD 12/04/2022 COMPREHENSIVE METABOLIC PANEL 08/06/2022 COMPREHENSIVE METABOLIC PANEL 02/23/2022 COMPREHENSIVE METABOLIC PANEL 01/01/2025 COMPREHENSIVE METABOLIC PANEL 06/16/2024 COMPREHENSIVE METABOLIC PANEL 07/09/2023 CBC (INCLUDES DIFF/PLT) 07/09/2023 CBC (INCLUDES DIFF/PLT) 06/16/2024 CBC (INCLUDES DIFF/PLT) 01/01/2025 CBC (INCLUDES DIFF/PLT) 08/06/2022 URINALYSIS, COMPLETE 08/06/2022 URINALYSIS, COMPLETE 01/01/2025 URINALYSIS, COMPLETE W/REFLEX TO CULTURE 07/01/2025 HEMOGLOBIN A1c 07/01/2025 HEMOGLOBIN A1c 11/01/2021 HEMOGLOBIN A1c 08/06/2022 HEMOGLOBIN A1c 12/04/2022 HEMOGLOBIN A1c 02/23/2022 HEMOGLOBIN A1c 06/16/2024 HEMOGLOBIN A1c 04/04/2023 HEMOGLOBIN A1c 07/09/2023 VITAMIN B12 07/09/2023 VITAMIN B12 01/01/2025 VITAMIN B12 07/01/2025 T4, FREE 08/06/2022 TSH 08/06/2022 TSH 07/09/2023 VITAMIN D,25-OH,TOTAL,IA 02/23/2022 VITAMIN D,25-OH,TOTAL,IA 01/01/2025 VITAMIN D,25-OH,TOTAL,IA 07/09/2023 VITAMIN D,25-OH,TOTAL,IA 08/06/2022 VITAMIN D,25-OH,TOTAL,IA 07/01/2025 CT Chest W/O Contrast 07/24/2023 Hemoglobin [id number] 01/01/2025 TSH+T3+Free T4+T3 Free 01/01/2025 Next Appt Details Provider Name:DORI TENA, 08/16/2025 08:45:00 AM, [address], [place], [address], Insurance Providers Payer Name Payer Address Payer Phone Subscriber Number Group Number Insured Name Patient Relationship to Insured Coverage Start Date Coverage End Date [facility] [address] [place] [id number] [phone] [id number] Self - patient is [...]
--- OUTSIDE RECORDS SUMMARY | 2025-08-11 09:54 | XMS_ITS | Patient Health Record ---
Author Organization [facility] Address [address] [place] [address] Care Team Providers Care Tape Stringer Name Role Phone Reginaldo Dunlap Primary Care Provider Mahendra Dowd Unavailable [phone] Allergies Allergen (clinical drug ingredient) Drug/Non Drug [...] metFORMIN HCl 500 MG (Prior Auth: Rx Ref#:[id number]) Oral; Duration: 30 Active Lupron Depot (1-Month) 3.75 MG (Prior Auth: Rx Ref#:[id number]) Intramuscular; Duration: 28 Active Immunizations Vaccine Route [...] Problem Type II diabetes mellitus without complication (913958764) Type 2 diabetes mellitus without complications (E11.9) Active confirmed Plan Of Treatment Pending Test Test Name Order Date [id number] Destruction, 11-0303/19/2019 01050-Ilfv Destruction, 11-0304/08/2019 03528-Zkjs Destruction, 11-0305/11/2019 73248- Debride <25 sq cm 01/20/2015 32117 I&D ABSCESS- SIMPLE,SINGLE 015 [id number] I&D ABSCESS- SIMPLE,SINGLE 015 Insurance Providers Payer Name Payer Address Payer Phone Subscriber Number Group Number Insured Name Patient Relationship to Insured Coverage Start Date Coverage End Date [employer] [address] [place] [address] [phone] [id number] June Tirado Self - patient is the insured Medical (General) History Medical History History ICD Code Chicken pox breast cancer type II diabetes Headaches/Migraines Surgical History Surgery Date(Month/Year) wisdom teeth extraction 1988 Liver biopsy 2002 right middle lobe resection 2015 right arm radial arterial thrombosis 201 6 mastectomy right breast 07/2018 breast implant 09/2018
--- OUTSIDE RECORDS SUMMARY | 2025-08-11 09:54 | XMS_ITS | Clinical Summary ---
Author Organization [facility] Address [facility] [employer] [address] [address] Phone Care Team Providers Care Oncology Research Rn Name Role Phone Reginaldo Dunlap MD Primary [...] VACCINE (#1) 2025 COVID-19 VACCINE (1 - 2024-2 6 season) 2025 RSV VACCINE (1 - 1-dose 75+ series) 2047 HEPATITIS A VACCINES Aged Out No long [...] topic Medical Devices Not on file Insurance [employer] [facility] TOTAL CHOICE INDEMNITY [employer] TOTAL CHOICE INDEMN[employer] TOTAL CHOICE INDEMN[employer] TOTAL CHOICE INDE[employer] CHOICE IN[employer] CHOICE INDEMNITY Care Teams Oncology Research Rn Relationship Specialty Start Date End Date Reginaldo Dunlap MD [address] [place] [phone] PCP - General Internal Medicine 08/06/24 Additional Source Comments The information contained in this document represents components of the legal health record. It is not the complete legal health record.[facility]
--- OUTSIDE RECORDS SUMMARY | 2025-08-11 09:54 | XMS_ITS | Clinical Summary ---
Author Organization [facility] Address [address] [place] [address] Phone Care Team Providers Care Airport Duty Manager Name Role Phone Reginaldo Dunlap MD Primary Care Provider [phone] Allergies Active Allergy Reactions Criticality Noted Date [...] (one) time each day. 04/29/2025 Active multivitamin-mi g-krlt-TB-vit K (Adults Multivitamin) 18 mg iron-400 mcg-25 mcg tablet 1 tab Orally daily for 30 days 09/04/2024 Active Zituvio 25 mg tablet Take 1 tablet (25 mg total) by mouth 1 (one) time each day. 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 Pulmonary nodules 06/11/2025 Encounters Date Type Department Care Team Description 07/15/2025 3:30 PM EDT Office Visit [facility] [place] [address] [address] Nathanael Shaw MD Chest wall deformity (Primary Dx); Pulmonary nodules 06/30/2025 11:21 AM EDT - 06/30/2025 11:59 PM EDT Hospital Encounter [facility] CT Scan [address] [place] [id number] Chest wall deformity; Pulmonary nodules Discharge Disposition: Home or Self Care 06/11/2025 8:30 AM EDT Consult [facility] [place] [address] [address] Nathanael Shaw MD Chest wall deformity (Primary Dx); Pulmonary nodules 06/09/2025 Telephone [facility] [place] [address] [address] Avis Taylor MA from Last 3 Months [...] Sign Reading Time Taken Comments Blood Pressure 144/64 07/15/2025 3:34 PM EDT Pulse 72 07/15/2025 3:34 PM EDT Temperature 36.8 C (98.2 F) 07/15/2025 3:34 PM EDT Respiratory Rate 18 07/15/2025 3:34 PM EDT Oxygen Saturation 97% 07/15/2025 3:34 PM EDT Inhaled Oxygen Concentration - - Weight 86.1 kg (189 lb 14.4 oz) 07/15/2025 3:34 PM EDT Height 170.2 cm (5' 7 ) 07/15/2025 3:34 PM EDT Body Mass Index 29.74 07/15/2025 3:34 PM EDT Plan of Treatment Health Maintenance Due Date Last Done Comments Breast Cancer Screening 1972 Colorectal Cancer Screening: Colonoscopy 1972 Diabetes: Annual Foot Exam 1982 Diabetes: Annual Retina Eye Exam 1982 DTaP,Tdap,and Td Vaccines (1 - Tdap) 1991 Hepatitis B Vaccines (1 of 3 - 19+ 3-dose series) 1991 Pneumococcal Vaccine: 50+ Years (1 of 2 - PCV) 1991 Zoster Vaccines (1 of 2) 1991 Cervical Cancer Screening: P ap Smear 1993 HIV Screening 09/18/2022 Hepatitis C Screening 09/18/2022 [...] Signed Date: 07/08/2025 07:37 ET Workstation ID: [id number] Transcribed By: Self Edit Transcribed Date: 07/08/2025 [...] doubled in size, leading to a referral [facility] [address]. The spots were diagnosed as sarcoidosis. COMPARISON: [...] Signed Date: 07/08/2025 07:37 ET Workstation ID: [id number] Transcribed By: Self Edit Transcribed Date: 07/08/2025 07:21 ET Nathanael Shaw MD IMG CT PROCEDURES Final Result from Last 3 Months Insurance [facility] Advance Directives Documents on File Type Date Recorded Patient Med Admin Expl anation Health Care Decision (hx) 08/14/2016 [...] (hx) 08/14/2016 AD DUMONT DIRECTIVE Care Teams Airport Duty Manager Relationship Specialty Start Date End Date Reginaldo Dunlap MD [address] [place] [address] PCP - General Internal Medicine 11/05/24
== END 2025-08-11 08:57 | disposition home or self-care (01) ==
LOC: HO.HMGAL 08:57
PROVIDERS: PCP Internal Medicine; Visit Provider Registered Nurse Emergency
DX: J30.89 Other allergic rhinitis (principal)
CPT/HCPCS: 95117; 95165

== ENCOUNTER 2025-09-06 08:34 | Outpatient (AMB) | payer OTHER, SELFPAY | END 2025-09-06 08:34 | disposition home or self-care (01) | LOC: HO.HMGAL 08:34 | PROVIDERS: PCP Internal Medicine; Visit Provider Registered Nurse Emergency | DX: J30.89 Other allergic rhinitis (principal) | CPT/HCPCS: 95117; 95165 ==

== ENCOUNTER 2025-10-04 08:14 | Outpatient (AMB) | payer OTHER, SELFPAY ==
--- OUTSIDE RECORDS SUMMARY | 2025-10-04 08:48 | XMS_ITS | Clinical Summary ---
Author Organization [facility] Address [facility] [address] [address] Phone Care Team Providers Care Surgical Coordinator Name Role Phone Reginaldo Dunlap MD Primary [...] topic Medical Devices Not on file Insurance [employer] [facility] TOTAL CHOICE INDEMNITY [employer]OTAL CHOICE IN[employer]OTAL CHOICE [employer]ICE IN[employer]OTAL CHOICE [employer]DEMNITY [employer]DEMNITY Care Teams Surgical Coordinator Relationship Specialty Start Date End Date Reginaldo Dunlap MD [address] [place] [phone] PCP - General Internal Medicine 08/06/24 Additional Source Comments The information contained in this document represents components of the legal health record. It is not the complete legal health record.[facility]
== END 2025-10-04 08:15 | disposition home or self-care (01) ==
LOC: HO.HMGAL 08:14
PROVIDERS: PCP Internal Medicine; Visit Provider Registered Nurse Emergency
DX: J30.89 Other allergic rhinitis (principal)
CPT/HCPCS: 95117; 95165